=== PATIENT | male | born 1950 | race Caucasian/White ===

== ENCOUNTER 2017-03-23 14:13 | Inpatient (IN) | payer MEDICARE, MEDICAID ==
[2017-03-23] MEDS ORDERED: Levofloxacin 500mg/100mL 500 MG/100 ML BAG IV ONE (14:59)
[2017-03-23] MEDS ORDERED: Diltiazem 30 mg Tab PO STA (15:03)
[2017-03-23] MEDS ORDERED: Sodium Chloride 0.9% 2,000 ML IV ONE (15:05)
[2017-03-23] MEDS ORDERED: Sodium Chloride 0.9% 1,000 ML IV ONE (15:05)
[2017-03-23] MEDS ORDERED: Enoxaparin 60 mg/0.6 mL 0.6mL Syr SUBQ STA (15:06)
[2017-03-23 15:28] LABS: % BASOPHILS 0.2 % (0.0-2.0); % EOSINOPHILS 1.9 % (0.0-5.0); % LYMPHOCYTES 13.4 % (20.0-50.0); % MONOCYTES 5.6 % (2.0-10.0); % NEUTROPHILS 78.9 % (40.0-80.0); EOSINOPHILE ABSOLUTE 0.3 Th/cmm (0.1-0.4); HEMOGLOBIN 10.3 gm/dL (12-16); LYMPHOCYTE ABSOLUTE 2.3 Th/cmm (1.5-3.0); MEAN CORPUSCULAR HEMOGLOBIN 30.8 pg (27.0-31.0); MEAN CORPUSCULAR HGB CONC 32.1 pg (28.0-36.0); MEAN PLATELET VOLUME 9.3 fl; NEUTROPHILE ABSOLUTE 13.6 Th/cmm (1.8-8.0); RED BLOOD COUNT 3.33 Mil/cmm (3.80-5.80); RED CELL DISTRIBUTION WIDTH 17.1 % (11.5-20.0)
[2017-03-23 15:30] LABS: pH 7.44 (7.35-7.45)
[2017-03-23 15:31] LABS: ALLEN TEST YES
[2017-03-23 15:32] LABS: PLATELET COUNT 378 Th/cmm (150-400); WHITE BLOOD COUNT 17.2 Th/cmm (4.8-10.8)
[2017-03-23] MEDS ORDERED: Piperacillin Sodium/Tazobact 2.25 gm Vial IV ONE (15:45)
[2017-03-23] MEDS ORDERED: Piperacillin Sodium/Tazobact 3.375 gm Vial IV ONE (15:46)
[2017-03-23 15:53] LABS: ALB/GLOB RATIO 0.7 (1.0-1.8); ALBUMIN 3.7 gm/dL (4.2-5.5); ANION GAP 19.3 (7.0-16.0); BILIRUBIN,TOTAL 0.3 mg/dL (0.3-1.0); CALCIUM SERUM 9.8 mg/dL (8.6-10.3); CARBON DIOXIDE 19.5 mEq/L (21.0-31.0); GFR NON AFRICAN-AMERICAN 18.2 ml/min; POTASSIUM SERUM 5.8 mEq/L (3.5-5.1); TOTAL PROTEIN,SERUM 8.7 gm/dL (6.0-8.3)
[2017-03-23 16:05] LABS: CREATININE - SERUM 3.6 mg/dL (0.7-1.3)
--- NOTE | 2017-03-23 17:18 | ER Physician Documentation ---
DATE OF SERVICE: 03/23/2017 EMERGENCY ROOM EVALUATION AND TREATMENT HOSPITAL COURSE: The patient was sent from [facility], placed by Dr. Miller to this institution for treatment and diagnosis, etc. The patient's preliminary workup done over there showed BUN of 186, creatinine of 3.8, that means he has mild prerenal azotemia. He has his white count is found to be 16.3. He was given 30 mEq of Kayexalate and was sent over here. His temperature was 101.2. He was found to be septic and hence he was sent over here. We are waiting for the labs to come back. The triage nurse saw the patient, did vital signs showing temperature 101.2, pulse of 110, respirations 18, blood pressure 129/64, oxygen saturation 100%. The patient was sent from [facility] to this institution. On 03/23/2017, I saw the patient and Maral Larsen was notified, she was his spouse. Abnormal lab was detected, hence he was sent here to [facility] [place]. The patient is not in a condition to speak. He is trached. He is almost semi-comatose patient. He is not on any vent. He has a Shiley valve. We are getting a blood gas to be done on him. He has few rales and rhonchi which are audible over at other institution in the [facility], hence the patient was sent over here. The patient's blood sugar was 234 at the [facility]. Review of present illness and past history cannot be obtained. FAMILY HISTORY: Cannot be obtained. Whatever I will get, I will dictate it out. The patient has been diagnosed to have chronic respiratory failure, diabetes mellitus, total chronic kidney failure. The patient also carries a diagnosis of CHF and patient is getting Pulmocare 65 mL an hour for 20 hours. The last vital signs from the other place was, temperature of 98.4, pulse of 100, respirations 22, blood pressure 106/78, oxygen saturation of 96. Pain level is 0. He may be having pain, but one cannot assess his pain in view of his serious situation. The patient's level of resuscitation is level 4 brain and level 4 brain code has been put on this patient. When Dr. Miller will come, he will decide further as to what to be done with this kind of code status. He is a brain patient, code was told. On examination, the patient appears to be deeply unconscious, not moving. He is contractual status. The patient has a G-tube. The patient's Montoya catheter has infection, septic and cloudy and pus-like findings are seen. The patient has no edema over the legs. Peripheral pulses are very faint. No DVT, no cyanosis, no petechia, no ecchymosis. The patient's past history taken from [facility] on 01/27/2017. There was a history which was done by one of the physicians showed that he has a history of hypertension, history of chronic respiratory failure with tracheostomy. He has coronary artery disease, hypercholesterolemia, status post trach and PEG and he was initially admitted to this hospital secondary to fever and diagnosis of pneumonia and urinary tract infection. His medications that he was taking in the past was Tylenol, Maalox, amiodarone, vitamin C, iron, Proscar, Keppra, Synthroid, Zofran, insulin sliding scale, Zosyn, amikacin, and . He did have an endoscopic procedure done in the past. He did have multiple decubitus ulcers, stage 2 to 3 in the past. He did have urinary tract infection in the past, pneumonia in the past, coronary artery disease and status post tracheostomy done in the past. He has cardiac arrhythmias, atrial flutter and atrial fibrillation done in the past. At one point, he was treated on 01/18/2017 at [facility] [place] and his white count was 9.3. At that time, the patient was on ventilator and got support and care. He had seizure disorder, hypothyroidism, benign prostatic hypertrophy, dementia, etc. His medications also included Protonix, [place], Tylenol and Zofran. These are the diagnosis the patient was dictated also by Dr. Miller, I believe at [facility]. Instead of getting all the other diagnosis, I will give it to you in the final section. On physical exam, the lungs revealed that the patient has tracheostomy, getting oxygen saturation is 97% or so. The patient has atrial flutter fibrillation, rhythm mostly flutter. At some point, I saw even having fibrillation rhythm. On physical exam also showed that patient has no edema, no cyanosis. Does not respond to any kind of painful stimuli. Chest reveals the patient has few bilateral rales and rhonchi. Trachea to be emphysematous. Chest wall is found and few scattered rales and rhonchi. Could not appreciate any bronchial breathing. Central nerve system; deep comatose status and the patient is getting medications over there; amiodarone, Catapres, chlorhexidine, DuoNeb inhaler, Fleet enema Imodium, Keppra 500 mg twice a day for seizures, milk of magnesia, etc. The patient's BUN in the past at one point in time was 187, that was on 03/23/2017 that is today and potassium was 6. We will give the patient some Kayexalate 60 grams through the G-tube and give him some IV fluids. White count is 16.3, hemoglobin is 10, hematocrit is 31, so the chances of patient having needing blood is very high. Examination of the chest x-ray showed that heart size was normal. No consolidation or pneumonitis was seen. WBC was 7.6, hematocrit was 22.8 that was done on 03/09/2017. Todays labs are not back. Once we have it, will dictate it out. His BUN in the past on 03/09/2017 was 84, today is 187 should be noted. FINAL DIAGNOSES: Chronic respiratory failure. The patient has tracheostomy and he is permanently dependent on trach and oxygenation and breathing treatment and from time to time he gets infection. He had MRSA infection in the past. He had Klebsiella pneumoniae infections in the past. OTHER DIAGNOSES: Include: 1. Urinary tract infection with yeast and pseudomonas for which he got antibiotics. 2. Sepsis. 3. Prerenal azotemia. 4. Hyperkalemia. 5. Acute renal failure. 6. Gangrene of the left toe tip second toe. 7. Hypertension. 8. Atrial fibrillation. 9. Diabetes mellitus. 10. Hypothyroidism. 11. Dementia. 12. Seizure disorder. 13. Quadriplegia. 14. Benign prostatic hypertrophy. 15. Status post leukocytosis, kidney injury, metabolic acidosis. PLAN: He does not need any amiodarone at this juncture. He needs IV fluids. He needs iron in his blood transfusion. Zofran and insulin and antibiotics, etc. all that has been ordered. JOB# [id number]
[2017-03-23] MEDS ORDERED: Enoxaparin 60 mg/0.6 mL 0.6mL Syr SUBQ ONE (19:18)
--- NOTE | 2017-03-23 19:44 | ED Physician Chart ---
ED Chief Complaint/HPI - Patient Information Allergies:: Allergies Allergy/AdvReac Type Severity Reaction Status Date / Time No Known Allergies Allergy Verified 01/19/17 21:36 Vitals:: Vital Signs - 8 hr 03/23/17 03/23/17 16:33 18:19 Temp 101.2 F 98.0 F HR 110 98 RR 18 22 BP 129/64 98/57 O2 Sat % 100 Family Medical History - Family Member Mother History Unknown: Yes ED Labs/Radiology/EKG Results - Lab Results Results: Laboratory Tests 03/23/17 03/23/17 03/23/17 15:02 15:18 15:18 WBC 17.2 H D RBC 3.33 L Hgb 10.3 L Hct 32.0 L D MCV 96.0 MCH 30.8 MCHC Differential 32.1 RDW 17.1 Plt Count 378 D MPV 9.3 Neutrophils % 78.9 Lymphocytes % 13.4 L Monocytes % 5.6 Eosinophils % 1.9 Basophils % 0.2 Specimen Source Arterial Sample Site Right Radial pH 7.44 pCO2 39.0 pO2 164.0 H HCO3 26.7 H Base Excess 2.2 O2 Saturation 100.0 Tyrel Test YES Vent Rate NA Inspired O2 32 Tidal Volume NA PEEP NA Pressure (ins/psv/peep) NA Critical Value SH Sodium 139 Potassium 5.8 H Chloride 106 Carbon Dioxide 19.5 L Anion Gap 19.3 H BUN Creatinine 3.6 H Est GFR ( Amer) 22.0 Est GFR (Non-Af Amer) 18.2 BUN/Creatinine Ratio 53.3 Glucose 146 H Whole Bld Lactic Acid Calcium 9.8 Magnesium Total Bilirubin 0.3 AST 63 H ALT 98 H Alkaline Phosphatase 88 B-Natriuretic Peptide Total Protein 8.7 H Albumin 3.7 L Globulin 5.0 Albumin/Globulin Ratio 0.7 L Blood Type Antibody Screen Crossmatch 03/23/17 03/23/17 03/23/17 15:18 15:18 15:18 WBC RBC Hgb Hct MCV MCH MCHC Differential RDW Plt Count MPV Neutrophils % Lymphocytes % Monocytes % Eosinophils % Basophils % Specimen Source Sample Site pH pCO2 pO2 HCO3 Base Excess O2 Saturation Tyrel Test Vent Rate Inspired O2 Tidal Volume PEEP Pressure (ins/psv/peep) Critical Value Sodium Potassium Chloride Carbon Dioxide Anion Gap BUN Creatinine Est GFR ( Amer) Est GFR (Non-Af Amer) BUN/Creatinine Ratio Glucose Whole Bld Lactic Acid 1.30 Calcium Magnesium 3.2 H Total Bilirubin AST ALT Alkaline Phosphatase B-Natriuretic Peptide 909.0 H Total Protein Albumin Globulin Albumin/Globulin Ratio Blood Type Antibody Screen Crossmatch 03/23/17 15:18 WBC RBC Hgb Hct MCV MCH MCHC Differential RDW Plt Count MPV Neutrophils % Lymphocytes % Monocytes % Eosinophils % Basophils % Specimen Source Sample Site pH pCO2 pO2 HCO3 Base Excess O2 Saturation Tyrel Test Vent Rate Inspired O2 Tidal Volume PEEP Pressure (ins/psv/peep) Critical Value Sodium Potassium Chloride Carbon Dioxide Anion Gap BUN Creatinine Est GFR ( Amer) Est GFR (Non-Af Amer) BUN/Creatinine Ratio Glucose Whole Bld Lactic Acid Calcium Magnesium Total Bilirubin AST ALT Alkaline Phosphatase B-Natriuretic Peptide Total Protein Albumin Globulin Albumin/Globulin Ratio Blood Type A POSITIVE Antibody Screen NEGATIVE Crossmatch See Detail ED Assessment - Assessment General Assessment: See chart by Dr. Gomez ED Septic Shock - . Is Septic Shock (SBP<90, OR Lactate>4 mmol\L) present?: No - <6hrs of presentation: Vital Signs: Vital Signs - 8 hr 03/23/17 03/23/17 16:33 18:19 Temp 101.2 F 98.0 F HR 110 98 RR 18 22 BP 129/64 98/57 O2 Sat % 100 ED Discharge Plan - Patient Disposition Admit/Discharge/Transfer: Acute Care w/in this hosp Condition at Disposition: Stable
[2017-03-23] MEDS ORDERED: Fleet Enema 135 mL RC PRN (22:47)
[2017-03-23] MEDS ORDERED: Magnesium Hydroxide (MOM) 30 mL UDC GT PRN (22:47)
[2017-03-23] MEDS ORDERED: guaiFENesin 200 MG/10 ML UDC PO PRN (22:56)
[2017-03-23] MEDS ORDERED: D5-0.45NS 1,000 ML IV SCH (23:00)
[2017-03-24] MEDS ORDERED: Albuterol/Ipratropium Neb 3 ML AERS HHN SCH
[2017-03-24 01:54] VITALS: BP 96/58
[2017-03-24 04:21] LABS: % BASOPHILS 0.2 % (0.0-2.0); % EOSINOPHILS 1.8 % (0.0-5.0); % MONOCYTES 3.6 % (2.0-10.0); % NEUTROPHILS 81.4 % (40.0-80.0); EOSINOPHILE ABSOLUTE 0.3 Th/cmm (0.1-0.4); HEMATOCRIT 32.9 % (41.0-60); HEMOGLOBIN 10.5 gm/dL (12-16); LYMPHOCYTE ABSOLUTE 1.8 Th/cmm (1.5-3.0); MEAN CORPUSCULAR HEMOGLOBIN 30.6 pg (27.0-31.0); MEAN CORPUSCULAR HGB CONC 31.9 pg (28.0-36.0); MEAN PLATELET VOLUME 9.6 fl; MONOCYTE ABSOLUTE 0.5 Th/cmm (0.3-1.0); NEUTROPHILE ABSOLUTE 11.4 Th/cmm (1.8-8.0); PLATELET COUNT 311 Th/cmm (150-400); RED BLOOD COUNT 3.43 Mil/cmm (3.80-5.80); RED CELL DISTRIBUTION WIDTH 17.2 % (11.5-20.0)
[2017-03-24] MEDS ORDERED: Piperacillin Sodium/Tazobact 2.25 gm Vial IV ONE (04:24)
[2017-03-24 04:39] LABS: ALB/GLOB RATIO 0.7 (1.0-1.8); ALBUMIN 3.6 gm/dL (4.2-5.5); ANION GAP 16.3 (7.0-16.0); BILIRUBIN,TOTAL 0.4 mg/dL (0.3-1.0); CALCIUM SERUM 9.3 mg/dL (8.6-10.3); CARBON DIOXIDE 20.3 mEq/L (21.0-31.0); CREATININE - SERUM 3.4 mg/dL (0.7-1.3); GFR AFRICAN-AMERICAN 23.5 ml/min (>90); GFR NON AFRICAN-AMERICAN 19.4 ml/min; POTASSIUM SERUM 4.6 mEq/L (3.5-5.1); TOTAL PROTEIN,SERUM 8.7 gm/dL (6.0-8.3)
[2017-03-24] MEDS: Piperacillin Sodium/Tazobact 2.25 GM in Sodium Chloride 0.9% 100 ML IV SCH ×3 (04:43→20:25)
[2017-03-24] MEDS ORDERED: INSULIN ASPART, RECOMBINANT 100 UNITS/ML SUBQ SCH (07:30)
[2017-03-24] MEDS: Albuterol Nebulizer 2.5mg/3mL HHN SCH ×4 (07:51→19:22)
[2017-03-24] MEDS: Ipratropium Neb 0.5 mg/2.5 mL UD IH SCH ×4 (07:51→19:22)
[2017-03-24] MEDS: Levothyroxine 0.05 Mg Tab GT SCH (07:57)
--- NOTE | 2017-03-24 08:37 | Diagnostic Imaging Report ---
Exam: Portable chest x-ray. HISTORY: Pneumonia Findings: Portable examination of the chest at 1521 hours reviewed compatible prior study 01/24/2017 demonstrates tracheostomy tube midline. Mediastinal structures midline the heart is not enlarged. No acute pulmonic infiltrates or effusions are noted. Bony thorax intact. IMPRESSION: No definite acute focal pulmonary infiltrates.
--- NOTE | 2017-03-24 08:45 | Diagnostic Imaging Report ---
Exam: Chest portable x-ray HISTORY: Sepsis. I needs: Portable examination of the chest at 0801 hours reviewed and compared to prior study of the earlier. The study demonstrates unchanged position of tracheostomy tube. Mediastinal structures midline the heart is not enlarged the costophrenic angles are clear. Bony thorax is intact. Right basilar atelectasis is noted with pleural thickening. IMPRESSION: Right basilar atelectasis pleural thickening follow-up examination is recommended.
[2017-03-24] MEDS ORDERED: Non-Formulary Item 1 EA (Arginine/Glutamine/Calcium Hmb [Juven Packet] 1 PDS) GT SCH (09:00)
[2017-03-24] MEDS ORDERED: Multivitamin w/ Minerals 15 mL UDC GT SCH (09:00)
[2017-03-24] MEDS ORDERED: Non-Formulary Item 1 EA (Amino Acids/Protein Hydrolys [Pro-Stat Sugar Free Liquid] 30 ML) GT SCH (09:00)
[2017-03-24] MEDS: Multivitamin w/ Minerals Tab GT SCH (09:26)
[2017-03-24] MEDS: Pantoprazole 40 mg EC Tab PO SCH ×2 (09:27→17:49)
[2017-03-24] MEDS: Levetiracetam 500 mg/5mL 5mL UDSyr *for ORAL USE ONLY GT SCH ×2 (09:27→17:48)
--- NOTE | 2017-03-24 10:00 | Diagnostic Imaging Report ---
Renal ultrasound HISTORY: Elevated renal function tests. COMPARISON: None Technique: Sonography of the kidneys and urinary bladder was performed in multiple planes. FINDINGS: Exam is limited due to bowel gas. The right kidney measures 12.6 x 6.67 days. A superior pole right renal cyst is noted measuring 3.6 x 3.6 cm with possible adjacent calcification. Adjacent smaller right renal cyst is also noted. No hydronephrosis. The left kidney measures 12.1 x 6.6 cm. The left renal margin is not well-defined, however no evidence of focal lesions. The bladder was not visualized. IMPRESSION: Limited exam due to bowel gas. No evidence of hydronephrosis. Right renal cyst with possible calcification along the peripheral aspect of the larger right renal cyst. Recommend follow-up surveillance CT or ultrasound in 4-6 months.
[2017-03-24] MEDS ORDERED: Probiotic Screen MC PRN (10:30)
[2017-03-24] MEDS: INSULIN ASPART, RECOMBINANT 100 UNITS/ML SUBQ SCH ×2 (11:33→17:24)
[2017-03-24] MEDS: D5-0.45NS 1,000 ML IV SCH ×2 (11:38→20:25)
--- NOTE | 2017-03-24 12:48 | Internal Medicine Prog Note ---
Internal Medicine Subjective - Subjective Service Date: 03/24/17 ([facility] dictated [id number]) Internal Medicine Objective - Results Result Diagrams: 03/24/17 04:00 03/24/17 04:00 Recent Labs: Laboratory Last Values WBC 14.0 Th/cmm (4.8-10.8) H 03/24/17 04:00 RBC 3.43 Mil/cmm (3.80-5.80) L 03/24/17 04:00 Hgb 10.5 gm/dL (12-16) L 03/24/17 04:00 Hct 32.9 % (41.0-60) L 03/24/17 04:00 MCV 96.0 fl (80-99) 03/24/17 04:00 MCH 30.6 pg (27.0-31.0) 03/24/17 04:00 MCHC Differential 31.9 pg (28.0-36.0) 03/24/17 04:00 RDW 17.2 % (11.5-20.0) 03/24/17 04:00 Plt Count 311 Th/cmm (150-400) 03/24/17 04:00 MPV 9.6 fl 03/24/17 04:00 Neutrophils % 81.4 % (40.0-80.0) H 03/24/17 04:00 Lymphocytes % 13.0 % (20.0-50.0) L 03/24/17 04:00 Monocytes % 3.6 % (2.0-10.0) 03/24/17 04:00 Eosinophils % 1.8 % (0.0-5.0) 03/24/17 04:00 Basophils % 0.2 % (0.0-2.0) 03/24/17 04:00 Specimen Source Arterial 03/23/17 15:02 Sample Site Right Radial 03/23/17 15:02 pH 7.44 (7.35-7.45) 03/23/17 15:02 pCO2 39.0 mmHg (35.0-45.0) 03/23/17 15:02 pO2 164.0 mmHg (80.0-100.0) H 03/23/17 15:02 HCO3 26.7 mEq/L (20.0-26.0) H 03/23/17 15:02 Base Excess 2.2 mEq/L (-3.0-3.0) 03/23/17 15:02 O2 Saturation 100.0 % (92.0-100.0) 03/23/17 15:02 Tyrel Test YES 03/23/17 15:02 Vent Rate NA 03/23/17 15:02 Inspired O2 32 03/23/17 15:02 Tidal Volume NA 03/23/17 15:02 PEEP NA 03/23/17 15:02 Pressure (ins/psv/peep) NA 03/23/17 15:02 Critical Value SH 03/23/17 15:02 Sodium 141 mEq/L (136-145) 03/24/17 04:00 Potassium 4.6 mEq/L (3.5-5.1) 03/24/17 04:00 Chloride 109 mEq/L (98-107) H 03/24/17 04:00 Carbon Dioxide 20.3 mEq/L (21.0-31.0) L 03/24/17 04:00 Anion Gap 16.3 (7.0-16.0) H 03/24/17 04:00 BUN 186 mg/dL (7-25) H* 03/24/17 04:00 Creatinine 3.4 mg/dL (0.7-1.3) H 03/24/17 04:00 Est GFR ( Amer) 23.5 ml/min (>90) 03/24/17 04:00 Est GFR (Non-Af Amer) 19.4 ml/min 03/24/17 04:00 BUN/Creatinine Ratio 54.7 03/24/17 04:00 Glucose 140 mg/dL (70-105) H 03/24/17 04:00 POC Glucose 180 MG/DL (70 - 105) H 03/24/17 11:29 Whole Bld Lactic Acid 1.57 mmol/L (0.60-1.99) 03/24/17 04:00 Calcium 9.3 mg/dL (8.6-10.3) 03/24/17 04:00 Magnesium 3.2 mg/dL (1.9-2.7) H 03/23/17 15:18 Total Bilirubin 0.4 mg/dL (0.3-1.0) 03/24/17 04:00 AST 61 U/L (13-39) H 03/24/17 04:00 ALT 107 U/L (7-52) H 03/24/17 04:00 Alkaline Phosphatase 84 U/L (34-104) 03/24/17 04:00 Ammonia 69 umol/L (16-53) H 03/24/17 04:00 B-Natriuretic Peptide 909.0 pg/mL (5.0-100.0) H 03/23/17 15:18 Total Protein 8.7 gm/dL (6.0-8.3) H 03/24/17 04:00 Albumin 3.6 gm/dL (4.2-5.5) L 03/24/17 04:00 Globulin 5.1 gm/dL 03/24/17 04:00 Albumin/Globulin Ratio 0.7 (1.0-1.8) L 03/24/17 04:00 Blood Type A POSITIVE 03/23/17 15:18 Antibody Screen NEGATIVE 03/23/17 15:18 Crossmatch See Detail 03/23/17 15:18 - Physical Exam Vitals and I&O: Vital Signs Temp 96.6 F 03/24/17 10:00 Pulse 88 03/24/17 12:12 Resp 18 03/24/17 12:12 BP 107/61 03/24/17 11:00 Pulse Ox 100 03/24/17 12:12 Intake & Output 03/23/17 03/24/17 03/24/17 18:59 06:59 18:59 Intake Total 200 Output Total 750 Balance -550 Weight (lbs) 171 lb 8 oz Intake: Oral 0 Tube Feeding 200 Output: Urine 750 Stool 0 Other: Stool Characteristics Liquid Active Medications: Current Medications Acetaminophen (Tylenol Extra Strength) 500 mg GT Q8HR PRN PRN Reason: Pain (Moderate) Stop: 05/22/17 22:46 Albuterol Sulfate (Albuterol 2.5mg/3ml Neb Ud) 2.5 mg HHN QIDRT [facility] Stop: 05/23/17 06:59 Last Admin: 03/24/17 12:11 Dose: 2.5 mg Ascorbic Acid (Vitamin C) 500 mg GT DAILY [facility] Stop: 05/23/17 08:59 Last Admin: 03/24/17 09:27 Dose: 500 mg Bisacodyl (Dulcolax 10 Mg Supp) 10 mg RC DAILY PRN PRN Reason: Constipation Stop: 05/22/17 22:46 Chlorhexidine Gluconate (Peridex) 15 ml MM Q12H [facility] Stop: 05/22/17 22:59 Epoetin Wei (Epogen) 10,000 units SUBQ MoWeFr@1500 [facility] Stop: 05/24/17 14:59 Guaifenesin (Robitussin) 200 mg PO Q4HR PRN PRN Reason: Cough or Congestion Stop: 05/22/17 22:55 Piperacillin Sod/Tazobactam (Sod 2.25 gm/ Sodium Chloride) 100 mls @ 100 mls/ hr IV Q8HR ALEJANDRO Stop: 05/23/17 04:59 Last Admin: 03/24/17 04:43 Dose: 100 mls/hr Dextrose/Sodium Chloride (D5-0.45ns) 1,000 mls @ 125 mls/hr IV .Q8H [facility] Stop: 05/23/17 08:38 Last Admin: 03/24/17 11:38 Dose: 125 mls/hr Insulin Aspart (Novolog) 0 units SUBQ Q6HR ALEJANDRO PRN Reason: Protocol Stop: 05/23/17 11:59 Last Admin: 03/24/17 11:33 Dose: Not Given Ipratropium Wayne (Atrovent Neb 0.5mg/2.5ml) 0.5 mg IH QIDRT [facility] Stop: 05/23/17 06:59 Last Admin: 03/24/17 07:51 Dose: 0.5 mg Lactobacillus Rhamnosus (Culturelle 15b) 1 each GT DAILY [facility] Stop: 05/24/17 08:59 Levetiracetam (Keppra) 500 mg GT BID [facility]AN[facility] Stop: 05/23/17 08:59 Last Admin: 03/24/17 09:27 Dose: 500 mg Levothyroxine Sodium (Synthroid) 0.05 mg GT QDAC [facility] Stop: 05/23/17 07:29 Last Admin: 03/24/17 07:57 Dose: 0.05 mg Loperamide HCl (Imodium) 2 mg GT Q6H PRN PRN Reason: Diarrhea Lorazepam (Ativan) 1 mg IV Q4H PRN; Protocol PRN Reason: Seizure Stop: 05/22/17 22:55 Magnesium Hydroxide (Milk Of Magnesia) 30 ml GT HS PRN PRN Reason: Constipation Stop: 05/22/17 22:46 Metoclopramide HCl (Reglan) 5 mg GT Q6H [facility]LE[facility]ANDRO Stop: 05/22/17 22:59 Last Admin: 03/24/17 11:36 Dose: 5 mg Miscellaneous (Vancomycin Iv Per Pharmacy) 1 ea PRN ALEJANDRO Stop: 05/22/17 22:59 Miscellaneous (Probiotic Screen) 1 [facility] PRN PRN PRN Reason: PROTOCOL Stop: 05/23/17 10:29 Ondansetron HCl (Zofran) 4 mg IV Q4H PRN PRN Reason: Nausea / Vomiting Stop: 05/22/17 22:55 Pantoprazole Sodium (Protonix) 40 mg PO BID [facility]ANDR[facility] Stop: 05/23/17 08:59 Last Admin: 03/24/17 09:27 Dose: 40 mg Sodium Bicarbonate (Sodium Bicarbonate) 650 mg GT DAILY [facility] PRN Reason: Protocol Stop: 05/23/17 08:59 Last Admin: 03/24/17 09:27 Dose: 650 mg Sodium Phosphate (Fleet Enema) 135 ml RC Q48HR PRN PRN Reason: Constipation Stop: 05/22/17 22:46 - Procedures Procedures: Procedures Procedure Code Date TRANSFUSE NONAUT RED BLOOD CELLS IN PERIPH VEIN, PERC 37163N4 01/20/17
[2017-03-24 14:15] LABS: A1C % 4.6 % (4.0-6.0)
[2017-03-24 16:04] LABS: URINE MICROSCOPIC INDICATED? YES; URINE SOURCE RANDOM
[2017-03-24 16:08] LABS: URINE BILIRUBIN NEGATIVE (NEGATIVE); URINE BLOOD TRACE (NEGATIVE); URINE GLUCOSE (UA) NEGATIVE (NEGATIVE); URINE KETONE NEGATIVE (NEGATIVE); URINE LEUKOCYTE ESTERASE MODERATE (NEGATIVE); URINE NITRATE NEGATIVE (NEGATIVE); URINE PROTEIN 30 mg/dL (NEGATIVE); URINE UROBILINOGEN 0.2 E.U./dL (0.2 - 1.0)
[2017-03-24 16:15] LABS: URINE CLARITY HAZY (CLEAR); URINE COLOR YELLOW
[2017-03-24 16:28] LABS: EOSINOPHIL SMEAR SOURCE URINE; EOSINOPHILS SMEAR COUNT NONE SEEN (NONE SEEN)
[2017-03-24 16:31] LABS: URINE EPITHELIAL CELLS NONE SEEN /lpf (FEW); URINE WBC 25-50 /hpf (0-5)
[2017-03-24 16:32] LABS: URINE BACTERIA FEW /hpf (NONE SEEN)
[2017-03-24] MEDS ORDERED: VTE Chemical Prophylaxis Screen/Admission MC PRN (17:15)
[2017-03-24] MEDS: Venelex 60gm Tube TP SCH (17:49)
--- NOTE | 2017-03-24 18:17 | Consultation ---
DATE OF CONSULTATION: 03/24/2017 ATTENDING: Ozzy Miller D.O. REASON FOR CONSULTATION: For worsening kidney function, electrolyte imbalance, and fluid management. HISTORY OF PRESENT ILLNESS: This is a 66-year-old male with past medical history of chronic kidney disease, who was brought in because of abnormal labs. A few hours prior to admission, labs drawn at [facility] revealed potassium of 6, BUN 187, and a white count of 16.3. He was then brought to the Emergency Room. He received one dose of Kayexalate prior to being transferred to the Emergency Room. He had a temperature of 101.2 degrees, white count was 17.2. Chest x-ray revealed no acute disease. Lactic acid was 1.3. He was admitted with a BUN/creatinine of 187/3.6. There was no history of diarrhea, no nausea or vomiting. PAST MEDICAL HISTORY: 1. Chronic kidney disease. 2. Type 2 diabetes mellitus. 3. BPH. 4. Essential hypertension. 5. Epilepsy. 6. Chronic respiratory failure on T-piece. 7. Anemia of chronic disease. 8. Dysphagia. 9. Functional quadriplegia. 10. Hypothyroidism. PAST SURGICAL HISTORY: 1. Status post tracheostomy. 2. Status post PEG placement. CURRENT MEDICATIONS: He is currently on acetaminophen, albuterol, ascorbic acid, bisacodyl, chlorhexidine, clonidine, D5 half NS, Epogen on Thursday, Thursday, and Thursday; guaifenesin, ipratropium, lactobacillus, levetiracetam, levofloxacin, levothyroxine, loperamide, magnesium hydroxide, metoclopramide, ondansetron, pantoprazole, probiotic, sodium bicarbonate, Zosyn. ALLERGIES: No known drug allergies. SOCIAL AND FAMILY HISTORY: I was not able to obtain directly from the patient because he is on a T-piece. REVIEW OF SYSTEMS: Again, I was not able to decipher directly from the patient because of his current mental and medical status. PHYSICAL EXAMINATION: GENERAL: The patient is arousable, not in any distress. VITAL SIGNS: His blood pressure now is 107/61, pulse 88, temperature 96.6 degrees. SKIN: Poor turgor, warm, no rash, no jaundice appreciated. HEENT: Head normocephalic, atraumatic. Eyes: Extraocular muscles intact. Pupils equal, round, reactive to light and accommodates. Anicteric sclerae. Pale conjunctivae. Nose, midline nasal septum. Mouth: Dry mucosa, adequate dentition. NECK: Supple. No adenopathy, no bruits. Trachea palpated in the midline with a tracheostomy tube on T-piece. CHEST AND CVS: S1, S2. No rub, murmur, no gallop appreciated. Point of maximal impulse, fifth intercostal space, left midclavicular line. No abdominal or femoral bruits appreciated. LUNGS: Equal expansion. No use of accessory muscles. No supraclavicular retractions. Scattered rhonchi, but no rales, no wheezes appreciated. ABDOMEN: Mildly globular, soft. Positive for bowel sounds. No bruits either diastolic or systolic. RECTAL: Deferred. GENITOURINARY: Normal appearing male genitalia. MUSCULOSKELETAL: No effusions present in his joints, but unable to assess his range of motion. BACK: He has I would say 3 x 5 inch sacral decubitus ulcer. EXTREMITIES: No evidence of any edema, cyanosis, nor clubbing with palpable femoral, but unable to fully appreciate popliteal or dorsalis pedis pulses. He has bilateral heel ulcers, right heel worse than his left heel. NEUROLOGIC: The patient remains stuporous, unable to follow my neuro commands, so I was not able to pursue further by neuro exam. LABORATORY DATA: White count 14, hemoglobin 10.5, hematocrit 32.9, platelets 311, polys 81.3%. Sodium is 141, potassium 4.6, chloride 109, bicarbonate 20.3, BUN 186, creatinine 3.4, glucose 140. Calcium 9.3, magnesium 3.2. Ammonia 69. BNP is 909. Albumin is 3.6. Renal ultrasound revealed ultrasound limited exam due to bowel gas, no evidence of hydronephrosis, right renal cyst. IMPRESSION: 1. Acute kidney injury on chronic kidney disease. Chronic kidney disease is secondary to hypertensive nephrosclerosis due to longstanding history of hypertension and also mainly from diabetic nephropathy with history of hypertension for years. Acute kidney injury is initially prerenal, even though the patient is on G-tube feedings, this may not be enough to replenish both sensible and insensible fluid losses. Eventually physical exam revealed dry oral mucosa, poor skin turgor, these findings are suggestive of dehydration. Eventually his prerenal azotemia progressed to acute tubular injury. The patient also has history of severe sepsis when he came in. Possibility of recurring urinary tract infection can give rise to acute interstitial nephritis. 2. Hyperkalemia secondary to acute kidney injury. 3. Sepsis, severe. 4. Sepsis, possibly due to complicated urinary tract infection as well as underlying wound infection. 5. Sacral decubitus ulcer. 6. Bilateral heel ulcers, right greater than left. 7. Elevated BNP, likely due to kidney failure. 8. Type 2 diabetes mellitus with chronic kidney disease. 9. Essential hypertension with chronic kidney disease. 10. Benign prostatic hypertrophy. 11. Epilepsy. 12. Chronic respiratory failure on T-piece. 13. Anemia of chronic disease. 14. Functional quadriplegia. 15. Hypothyroidism. PLAN: 1. Follow up renal ultrasound. 2. UA, C and S. 3. Urine sodium, eosinophils, and creatinine. 4. Urine microalbumin to creatinine ratio. 5. Continue with IV fluids. 6. Follow up electrolytes. 7. Also, follow up panculture including wound culture. Thank you, Dr. Miller, for this consult. I will follow the patient closely with you. JOB# [id number]
--- NOTE | 2017-03-24 21:15 | History & Physical ---
ADMIT DATE: 03/24/2017 CHIEF COMPLAINT: BUN of 187, potassium of 6. HISTORY OF PRESENT ILLNESS: This is a 66-year-old male who is well known to me from [facility] who was brought to [facility] due to elevated BUN of 187. The patient also was noted to have a white count of 16.3. Due to the above reasons, the patient is now admitted to the ICU unit. PAST MEDICAL HISTORY: Hypertension, diabetes, ESRD, seizures, dementia, and BPH. PAST SURGICAL HISTORY: Trach and gastrostomy. ALLERGIES: No drug allergies. MEDICATIONS: Albuterol, Atrovent, amiodarone, vitamin C, Dulcolax, chlorhexidine, ferrous sulfate, Proscar, hydrocodone. FAMILY HISTORY: Noncontributory. SOCIAL HISTORY: The patient is a [facility] resident, requiring 24-hour nursing care. ALLERGIES: No drug allergies. REVIEW OF SYSTEMS: Unable to obtain due to patient's mental status. PHYSICAL EXAMINATION: GENERAL: This is an elderly male, appears chronically ill, no apparent distress. VITAL SIGNS: Temperature 96.6, heart rate 86, blood pressure 98/62, respirations 20, O2 100%. HEENT: Head; normocephalic, atraumatic. NECK: Supple. No mass. LUNGS: Rhonchi bilaterally. HEART: Regular rhythm. ABDOMEN: Soft, nontender. LABORATORY DATA: WBC 14.0, H and H 10.5 and 32.9, platelets 311. Sodium 141, potassium 4.6, chloride of 109, BUN 186, creatinine of 3.4, albumin at 3.6. BNP 909. DIAGNOSTICS: The patient had a renal ultrasound done and the impression is renal cyst with possible calcification along the peripheral aspect of the larger right renal cyst. The patient also had a chest x-ray done and the impression is right basal atelectasis, pleural thickening. Followup examination is recommended. ASSESSMENT: Sepsis, acute renal failure, mild protein calorie malnutrition, hyperkalemia, hypertension, CAD, dyslipidemia, acute on chronic respiratory failure, tracheostomy status, gastrostomy status. PLAN: The patient to be admitted to the ICU unit. We will get nephrology on the case as well as Pulmonology. We will get some sputum cultures done. Keep patient on aggressive IV fluids for hydration as well as IV antibiotics of Zosyn. We will continue to follow this patient. [facility]# [id number]
[2017-03-24] MEDS: Chlorhexidine Gluconate 0.12% 480mL Bottle MM SCH (22:37)
--- NOTE | 2017-03-24 22:38 | Consultation ---
DATE OF CONSULTATION: 03/24/2017 PATIENT OF: Ozzy Miller D.O. Thank you very much, Dr. Miller, for this consultation. HISTORY OF PRESENT ILLNESS: The patient is a 66-year-old male with history of chronic respiratory failure on a trach collar who was transferred from subacute care secondary to leukocytosis and potential sepsis. The patient was found to have severe dehydration, acute renal failure, hyperkalemia, and leukocytosis. The patient was started on IV fluids, nebulized treatment, IV antibiotics, admitted for treatment and management. The patient is not needing to be on any pressors. Appears to be comfortable, more awake. He was just readmitted to subacute care a week ago after had extended treatment in both acute care and long-term acute care. He is unable to give any further history or review of systems. PHYSICAL EXAMINATION: VITAL SIGNS: Temperature 96.8, pulse 80, respiration is 20, blood pressure 93/54, saturation 100%. HEENT: Head is atraumatic, normocephalic. Pupils react to light and accommodation. Ears, nose and throat normal. NECK: Supple. Tracheostomy tube in place. CHEST: Good breath sounds. No wheezing or crackles. HEART: Regular rate and rhythm. ABDOMEN: Soft, nontender. EXTREMITIES: No edema. LABORATORY DATA: Sodium is 141, potassium 4.6, BUN is 186, creatinine 3.4. WBC is 14.0, hemoglobin 10.5, hematocrit 32.9, platelets 311. Chest x-ray showed right lower lobe infiltrate and mild pulmonary congestion. IMPRESSION: 1. This is a 66-year-old male with sepsis again. 2. Acute renal failure with dehydration. 3. Pneumonia. 4. Acute on chronic respiratory failure. PLAN: 1. IV antibiotics. 2. Nebulizer treatment. 3. IV fluids. 4. Renal followup and evaluation and followup chest x-ray and labs. Will follow the patient with you. JOB# [id number]
[2017-03-25] MEDS: INSULIN ASPART, RECOMBINANT 100 UNITS/ML SUBQ SCH ×5 (00:23→23:43)
[2017-03-25] MEDS: Piperacillin Sodium/Tazobact 2.25 GM in Sodium Chloride 0.9% 100 ML IV SCH (04:36)
[2017-03-25] MEDS: D5-0.45NS 1,000 ML IV SCH ×4 (04:39→23:00)
[2017-03-25 04:51] LABS: % BASOPHILS 0.1 % (0.0-2.0); % EOSINOPHILS 3.9 % (0.0-5.0); % LYMPHOCYTES 12.8 % (20.0-50.0); % MONOCYTES 5.5 % (2.0-10.0); % NEUTROPHILS 77.7 % (40.0-80.0); EOSINOPHILE ABSOLUTE 0.4 Th/cmm (0.1-0.4); HEMOGLOBIN 8.4 gm/dL (12-16); LYMPHOCYTE ABSOLUTE 1.4 Th/cmm (1.5-3.0); MEAN CELL VOLUME 95.9 fl (80-99); MEAN CORPUSCULAR HEMOGLOBIN 31.7 pg (27.0-31.0); MEAN CORPUSCULAR HGB CONC 33.1 pg (28.0-36.0); MEAN PLATELET VOLUME 9.3 fl; MONOCYTE ABSOLUTE 0.6 Th/cmm (0.3-1.0); NEUTROPHILE ABSOLUTE 8.4 Th/cmm (1.8-8.0); PLATELET COUNT 320 Th/cmm (150-400); RED BLOOD COUNT 2.66 Mil/cmm (3.80-5.80); RED CELL DISTRIBUTION WIDTH 17.7 % (11.5-20.0)
[2017-03-25 04:52] LABS: HEMATOCRIT 25.5 % (41.0-60); WHITE BLOOD COUNT 10.8 Th/cmm (4.8-10.8)
[2017-03-25 05:19] LABS: ALB/GLOB RATIO 0.7 (1.0-1.8); ANION GAP 12.7 (7.0-16.0); BILIRUBIN,TOTAL 0.2 mg/dL (0.3-1.0); CALCIUM SERUM 8.6 mg/dL (8.6-10.3); CARBON DIOXIDE 22.1 mEq/L (21.0-31.0); CREATININE - SERUM 2.7 mg/dL (0.7-1.3); GFR AFRICAN-AMERICAN 30.7 ml/min (>90); GFR NON AFRICAN-AMERICAN 25.3 ml/min; MAGNESIUM 2.6 mg/dL (1.9-2.7); PHOSPHOROUS 4.2 mg/dL (2.5-5.0); POTASSIUM SERUM 3.8 mEq/L (3.5-5.1); TOTAL PROTEIN,SERUM 7.1 gm/dL (6.0-8.3); URIC ACID 9.1 mg/dL (4.4-7.6)
[2017-03-25] MEDS: Levothyroxine 0.05 Mg Tab GT SCH (06:42)
[2017-03-25] MEDS: Albuterol Nebulizer 2.5mg/3mL HHN SCH ×4 (07:16→19:20)
[2017-03-25] MEDS: Ipratropium Neb 0.5 mg/2.5 mL UD IH SCH ×4 (07:17→19:20)
[2017-03-25] MEDS: Lactobacillus Rhamnosus GG 15 Billion CFU CAP.SPRINK GT SCH (09:34)
[2017-03-25] MEDS: Pantoprazole 40 mg EC Tab PO SCH ×2 (09:35→17:30)
[2017-03-25] MEDS: Multivitamin w/ Minerals Tab GT SCH (09:35)
[2017-03-25] MEDS: Venelex 60gm Tube TP SCH (09:35)
[2017-03-25] MEDS: Levetiracetam 500 mg/5mL 5mL UDSyr *for ORAL USE ONLY GT SCH ×2 (09:35→17:35)
[2017-03-25] MEDS: Chlorhexidine Gluconate 0.12% 480mL Bottle MM SCH ×2 (10:39→23:37)
[2017-03-25] MEDS: Piperacillin/Tazobact 2.25 gm in 0.9% NS 50 ML IV SCH ×3 (12:05→23:21)
--- NOTE | 2017-03-25 12:49 | Internal Medicine Prog Note ---
Internal Medicine Subjective - Subjective Service Date: 03/25/17 Patient seen and examined:: with staff Patient is:: awake, other (nonverbal ) Per staff patient has:: tolerating meds Internal Medicine Objective - Results Result Diagrams: 03/25/17 04:42 03/25/17 04:42 Recent Labs: Laboratory Last Values WBC 10.8 Th/cmm (4.8-10.8) D 03/25/17 04:42 RBC 2.66 Mil/cmm (3.80-5.80) L 03/25/17 04:42 Hgb 8.4 gm/dL (12-16) L 03/25/17 04:42 Hct 25.5 % (41.0-60) L D 03/25/17 04:42 MCV 95.9 fl (80-99) 03/25/17 04:42 MCH 31.7 pg (27.0-31.0) H 03/25/17 04:42 MCHC Differential 33.1 pg (28.0-36.0) 03/25/17 04:42 RDW 17.7 % (11.5-20.0) 03/25/17 04:42 Plt Count 320 Th/cmm (150-400) 03/25/17 04:42 MPV 9.3 fl 03/25/17 04:42 Neutrophils % 77.7 % (40.0-80.0) 03/25/17 04:42 Lymphocytes % 12.8 % (20.0-50.0) L 03/25/17 04:42 Monocytes % 5.5 % (2.0-10.0) 03/25/17 04:42 Eosinophils % 3.9 % (0.0-5.0) 03/25/17 04:42 Basophils % 0.1 % (0.0-2.0) 03/25/17 04:42 Eos Smear Source URINE 03/24/17 14:40 Eos Smear Total Cells NONE SEEN (NONE SEEN) 03/24/17 14:40 Specimen Source Arterial 03/23/17 15:02 Sample Site Right Radial 03/23/17 15:02 pH 7.44 (7.35-7.45) 03/23/17 15:02 pCO2 39.0 mmHg (35.0-45.0) 03/23/17 15:02 pO2 164.0 mmHg (80.0-100.0) H 03/23/17 15:02 HCO3 26.7 mEq/L (20.0-26.0) H 03/23/17 15:02 Base Excess 2.2 mEq/L (-3.0-3.0) 03/23/17 15:02 O2 Saturation 100.0 % (92.0-100.0) 03/23/17 15:02 Tyrel Test YES 03/23/17 15:02 Vent Rate NA 03/23/17 15:02 Inspired O2 32 03/23/17 15:02 Tidal Volume NA 03/23/17 15:02 PEEP NA 03/23/17 15:02 Pressure (ins/psv/peep) NA 03/23/17 15:02 Critical Value SH 03/23/17 15:02 Sodium 143 mEq/L (136-145) 03/25/17 04:42 Potassium 3.8 mEq/L (3.5-5.1) 03/25/17 04:42 Chloride 112 mEq/L (98-107) H 03/25/17 04:42 Carbon Dioxide 22.1 mEq/L (21.0-31.0) 03/25/17 04:42 Anion Gap 12.7 (7.0-16.0) 03/25/17 04:42 BUN 157 mg/dL (7-25) H* 03/25/17 04:42 Creatinine 2.7 mg/dL (0.7-1.3) H 03/25/17 04:42 Est GFR ( Amer) 30.7 ml/min (>90) 03/25/17 04:42 Est GFR (Non-Af Amer) 25.3 ml/min 03/25/17 04:42 BUN/Creatinine Ratio 58.1 03/25/17 04:42 Glucose 188 mg/dL (70-105) H 03/25/17 04:42 POC Glucose 180 MG/DL (70 - 105) H 03/25/17 05:28 Hemoglobin A1c % 4.6 % (4.0-6.0) 03/24/17 04:00 Whole Bld Lactic Acid 1.57 mmol/L (0.60-1.99) 03/24/17 04:00 Uric Acid 9.1 mg/dL (4.4-7.6) H 03/25/17 04:42 Calcium 8.6 mg/dL (8.6-10.3) 03/25/17 04:42 Phosphorus 4.2 mg/dL (2.5-5.0) 03/25/17 04:42 Magnesium 2.6 mg/dL (1.9-2.7) 03/25/17 04:42 Total Bilirubin 0.2 mg/dL (0.3-1.0) L 03/25/17 04:42 AST 32 U/L (13-39) 03/25/17 04:42 ALT 70 U/L (7-52) H 03/25/17 04:42 Alkaline Phosphatase 71 U/L (34-104) 03/25/17 04:42 Ammonia 69 umol/L (16-53) H 03/24/17 04:00 B-Natriuretic Peptide 909.0 pg/mL (5.0-100.0) H 03/23/17 15:18 Total Protein 7.1 gm/dL (6.0-8.3) 03/25/17 04:42 Albumin 3.0 gm/dL (4.2-5.5) L 03/25/17 04:42 Globulin 4.1 gm/dL 03/25/17 04:42 Albumin/Globulin Ratio 0.7 (1.0-1.8) L 03/25/17 04:42 Prostate Specific Ag 0.2 ng/mL (0.0-4.0) 03/23/17 15:18 TSH 8.16 uIU/ml (0.34-5.60) H 03/25/17 04:42 Urine Source RANDOM 03/24/17 14:00 Urine Color YELLOW 03/24/17 14:00 Urine Clarity HAZY (CLEAR) 03/24/17 14:00 Urine pH 6.0 (4.6 - 8.0) 03/24/17 14:00 Ur Specific Ransom 1.010 (1.005-1.030) 03/24/17 14:00 Urine Protein 30 mg/dL (NEGATIVE) H 03/24/17 14:00 Urine Glucose (UA) NEGATIVE mg/dL (NEGATIVE) 03/24/17 14:00 Urine Ketones NEGATIVE mg/dL (NEGATIVE) 03/24/17 14:00 Urine Blood TRACE (NEGATIVE) 03/24/17 14:00 Urine Nitrate NEGATIVE (NEGATIVE) 03/24/17 14:00 Urine Bilirubin NEGATIVE (NEGATIVE) 03/24/17 14:00 Urine Urobilinogen 0.2 E.U./dL (0.2 - 1.0) 03/24/17 14:00 Ur Leukocyte Esterase MODERATE (NEGATIVE) H 03/24/17 14:00 Urine RBC 2-5 /hpf (0-5) H 03/24/17 14:00 Urine WBC 25-50 /hpf (0-5) H 03/24/17 14:00 Ur Epithelial Cells NONE SEEN /lpf (FEW) 03/24/17 14:00 Urine Bacteria FEW /hpf (NONE SEEN) 03/24/17 14:00 Urine Creatinine 33.9 mg/dl (39.0-259.0) L 03/25/17 08:00 Blood Type A POSITIVE 03/23/17 15:18 Antibody Screen NEGATIVE 03/23/17 15:18 Crossmatch See Detail 03/23/17 15:18 - Physical Exam Vitals and I&O: Vital Signs Temp 97.8 F 03/25/17 12:00 Pulse 73 03/25/17 12:00 Resp 20 03/25/17 12:00 BP 109/56 03/25/17 12:00 Pulse Ox 99 03/25/17 12:00 Intake & Output 03/24/17 03/25/17 03/25/17 18:59 06:59 18:59 Intake Total 100 3700.75 447.917 Output Total 1601 Balance 100 2099.75 447.917 Weight (lbs) 170 lb 1 oz Intake: Intake, IV Amount 100 2368.75 447.917 D5-0.45NS 1,000 ml @ 125 2168.75 447.917 mls/hr IV .Q8H ALEJANDRO Rx#: [id number] Piperacillin Sodium/ 100 200 Tazobact 2.25 gm In Sodium Chloride 0.9% 100 ml @ 100 mls/hr IV Q8HR ALEJANDRO Rx#:[id number] Tube Feeding 932 Other 400 Output: Urine 1600 Emesis 1 Other: # Bowel Movements 1 Stool Characteristics Soft Soft Liquid Liquid Active Medications: Current Medications Acetaminophen (Tylenol Extra Strength) 500 mg GT Q8HR PRN PRN Reason: Pain (Moderate) Stop: 05/22/17 22:46 Albuterol Sulfate (Albuterol 2.5mg/3ml Neb Ud) 2.5 mg HHN QIDRT [facility] Stop: 05/23/17 06:59 Last Admin: 03/25/17 11:24 Dose: 2.5 mg Ascorbic Acid (Vitamin C) 500 mg GT DAILY [facility] Stop: 05/23/17 08:59 Last Admin: 03/25/17 09:35 Dose: 500 mg Bisacodyl (Dulcolax 10 Mg Supp) 10 mg RC DAILY PRN PRN Reason: Constipation Stop: 05/22/17 22:46 [place] Oil/[place] Balsam/Trypsin (Venelex) 1 appl TP DAILY [facility] Stop: 05/23/17 16:59 Last Admin: 03/25/17 09:35 Dose: 1 appl Chlorhexidine Gluconate (Peridex) 15 ml MM Q12H [facility] Stop: 05/22/17 22:59 Last Admin: 03/25/17 10:39 Dose: 15 ml Epoetin Wei (Epogen) 10,000 units SUBQ MoWeFr@1500 [facility] Stop: 05/24/17 14:59 Guaifenesin (Robitussin) 200 mg PO Q4HR PRN PRN Reason: Cough or Congestion Stop: 05/22/17 22:55 Heparin Sodium (Porcine) (Heparin) 5,000 units SUBQ Q12HR [facility] Stop: 05/23/17 20:59 Last Admin: 03/25/17 09:35 Dose: 5,000 units Dextrose/Sodium Chloride (D5-0.45ns) 1,000 mls @ 125 mls/hr IV .Q8H [facility] Stop: 05/23/17 08:38 Last Admin: 03/25/17 09:35 Dose: 125 mls/hr Vancomycin HCl 1 gm/ Sodium (Chloride) 250 mls @ 165 mls/hr IV Q24H [facility] Stop: 05/24/17 10:59 Last Admin: 03/25/17 10:38 Dose: 165 mls/hr Piperacillin Sod/Tazobactam (Sod 2.25 gm/ Sodium Chloride) 50 mls @ 100 mls/hr IV Q6HR [facility] Stop: 05/24/17 11:59 Insulin Aspart (Novolog) 0 units SUBQ Q6HR ALEJANDRO PRN Reason: Protocol Stop: 05/23/17 11:59 Last Admin: 03/25/17 05:49 Dose: Not Given Ipratropium [place] (Atrovent Neb 0.5mg/2.5ml) 0.5 mg IH QIDRT [facility] Stop: 05/23/17 06:59 Last Admin: 03/25/17 11:38 Dose: 0.5 mg Lactobacillus Rhamnosus (Culturelle 15b) 1 each GT DAILY ALEJANDRO Stop: 05/24/17 08:59 Last Admin: 03/25/17 09:34 Dose: 1 each Levetiracetam (Keppra) 500 mg GT BID [facility] Stop: 05/23/17 08:59 Last Admin: 03/25/17 09:35 Dose: 500 mg Levothyroxine Sodium (Synthroid) 0.05 mg GT QDAC [facility] Stop: 05/23/17 07:29 Last Admin: 03/25/17 06:42 Dose: 0.05 mg Loperamide HCl (Imodium) 2 mg GT Q6H PRN PRN Reason: Diarrhea Lorazepam (Ativan) 1 mg IV Q4H PRN; Protocol PRN Reason: Seizure Stop: 05/22/17 22:55 Magnesium Hydroxide (Milk Of Magnesia) 30 ml GT HS PRN PRN Reason: Constipation Stop: 05/22/17 22:46 Metoclopramide HCl (Reglan) 5 mg GT Q6H [facility] Stop: 05/22/17 22:59 Last Admin: 03/25/17 10:38 Dose: 5 mg Miscellaneous (Vancomycin Iv Per Pharmacy) 1 ea MC PRN [facility] Stop: 05/22/17 22:59 Miscellaneous (Probiotic Screen) 1 ea MC PRN PRN PRN Reason: PROTOCOL Stop: 05/23/17 10:29 Miscellaneous (Vte Chemical Prophylaxis Screen/ Admission) 1 ea MC PRN PRN PRN Reason: PROTOCOL Stop: 05/23/17 17:14 Miscellaneous (Clinical Monitoring) 1 ea MC PRN PRN PRN Reason: RENAL DOSE ZOSYN Stop: 05/24/17 10:39 Mupirocin (Bactroban Oint) 1 appl NS BID [facility] Stop: 03/30/17 09:01 Ondansetron HCl (Zofran) 4 mg IV Q4H PRN PRN Reason: Nausea / Vomiting Stop: 05/22/17 22:55 Last Admin: 03/24/17 12:52 Dose: 4 mg Pantoprazole Sodium (Protonix) 40 mg PO BID ALEJNADRO Stop: 05/23/17 08:59 Last Admin: 03/25/17 09:35 Dose: 40 mg Sodium Bicarbonate (Sodium Bicarbonate) 650 mg GT DAILY ALEJANDRO PRN Reason: Protocol Stop: 05/23/17 08:59 Last Admin: 03/25/17 09:35 Dose: 650 mg Sodium Phosphate (Fleet Enema) 135 ml RC Q48HR PRN PRN Reason: Constipation Stop: 05/22/17 22:46 General: weak, obtunded HEENT: NC/AT, PERRLA Neck: Supple Lungs: ronchi Cardiovascular: RRR, Normal S1, Normal S2, without murmur Abdomen: soft, non-tender, non-distended, +GT, positive bowel sound Extremities: excoriation Neurological: unable to follow command - Procedures Procedures: Procedures Procedure Code Date TRANSFUSE NONAUT RED BLOOD CELLS IN PERIPH VEIN, PERC 98202A8 01/20/17 Internal Medicine Assmt/Plan - Assessment Assessment: sepsis acute renal failure mild protein calorie malnutrition hyperkalemia htn cad dyslipidemia acute on chronic respiratory failure tracheostomy status gastrostomy status - Plan Plan: continue ivabx ivf for hydration renal follow up await for sputum culture icu monitoring continue current plan of care Nutritional Asmnt/Malnutr-PDOC - Dietary Evaluation Malnutrition Findings (Please click <Entered> for more info): Nutritional Asmnt/Malnutrition Start: 03/24/17 16: 51 Text: Status: Complete Freq: Document 03/24/17 16:51 ARCHANA (Rec: 03/24/17 16:57 LCNICKY [id number]) Nutritional Asmnt/Malnutrition Patient General Information Nutritional Screening High Risk Consult Diagnosis sepsis, ARF Pertinent Medical Hx/Surgical Hx chronic respiratory failure, DM, chronic renal failure, CHF Subjective Information Consult received for chino < 12 and multiple wounds/ pressure ulvers. Pt seen resting in bed, on vent. TF was off at this time. Per nurse notes, pt had light yeallow vomitting today, TF hold for 4hr. Current Diet Order/ Nutrition Support Novasource Renal 40ml/hr continous Pertinent Medications vitamin C, d5-0.45ns, novolog, culturelle, synthroid, reglan , protonix, piperacillin Pertinent Labs 2/6 Cl 109, BUN 186, Cr 3.4, glucose 140, POC 180-193, a1c 4.6 Nutritional Hx/Data Height 5 ft 9 in Height (Calculated Centimeters) 175.3 Current Weight (lbs) 171 lb 8 oz Weight (Calculated Kilograms) 77.8 Weight (Calculated Grams) 44399.1 Olla Body Weight 160 Body Mass Index (BMI) 25.3 Weight Status Overweight GI Symptoms GI Symptoms Diarrhea Last BM no record Difficult in: None Skin Integrity/Comment: rash Estimated Nutritional Goals BEE in Kcals: Using Current wt Calories/Kcals/Kg 25-30 Kcals Calculated 8141-6789 Protein: Using Current wt Protein g/k-1.2 monitor renal labs Protein Calculated 77-92 Fluid: ml 7440-7106 Nutritional Problem 1. Problem Problem altered nutrition related lab values Etiology hx of chronic renal failure, DM Signs/Symptoms: BUN 186, Cr 3.4, glucose 140 Malnutrition Alert Protein-Calorie Malnutrition N/A Is there a minimum of two criteria No selected? Query Text:Check all the applicable criteria. A minimum of two criteria are recommended for diagnosis of either severe or non-severe malnutrition. Intervention/Recommendation Comments 1. Continue with current TF regimen. It provides 1920kcal, 87g protein, 688ml free water , meeting 100% of nutritional needs 2. Monitor TF rate, tolerance, wt weekly, skin integrity and labs 3. F/U as moderate risk in 3-5 days, 03/27-03/29 Expected Outcomes/Goals Expected Outcomes/Goals 1. Pt to meet at least 75% of nutritional needs via nutrition support with tolerance 2. Wt stability, skin to remain intact, labs to approach WNL.
--- NOTE | 2017-03-25 14:52 | General Progress Note ---
Subjective - Review of Systems Service Date: 03/25/17 Subjective: more awake, comfortable, on T piece Objective - Results Result Diagrams: 03/25/17 04:42 03/25/17 04:42 Recent Labs: Laboratory Last Values WBC 10.8 Th/cmm (4.8-10.8) D 03/25/17 04:42 RBC 2.66 Mil/cmm (3.80-5.80) L 03/25/17 04:42 Hgb 8.4 gm/dL (12-16) L 03/25/17 04:42 Hct 25.5 % (41.0-60) L D 03/25/17 04:42 MCV 95.9 fl (80-99) 03/25/17 04:42 MCH 31.7 pg (27.0-31.0) H 03/25/17 04:42 MCHC Differential 33.1 pg (28.0-36.0) 03/25/17 04:42 RDW 17.7 % (11.5-20.0) 03/25/17 04:42 Plt Count 320 Th/cmm (150-400) 03/25/17 04:42 MPV 9.3 fl 03/25/17 04:42 Neutrophils % 77.7 % (40.0-80.0) 03/25/17 04:42 Lymphocytes % 12.8 % (20.0-50.0) L 03/25/17 04:42 Monocytes % 5.5 % (2.0-10.0) 03/25/17 04:42 Eosinophils % 3.9 % (0.0-5.0) 03/25/17 04:42 Basophils % 0.1 % (0.0-2.0) 03/25/17 04:42 Eos Smear Source URINE 03/24/17 14:40 Eos Smear Total Cells NONE SEEN (NONE SEEN) 03/24/17 14:40 Specimen Source Arterial 03/23/17 15:02 Sample Site Right Radial 03/23/17 15:02 pH 7.44 (7.35-7.45) 03/23/17 15:02 pCO2 39.0 mmHg (35.0-45.0) 03/23/17 15:02 pO2 164.0 mmHg (80.0-100.0) H 03/23/17 15:02 HCO3 26.7 mEq/L (20.0-26.0) H 03/23/17 15:02 Base Excess 2.2 mEq/L (-3.0-3.0) 03/23/17 15:02 O2 Saturation 100.0 % (92.0-100.0) 03/23/17 15:02 Tyrel Test YES 03/23/17 15:02 Vent Rate NA 03/23/17 15:02 Inspired O2 32 03/23/17 15:02 Tidal Volume NA 03/23/17 15:02 PEEP NA 03/23/17 15:02 Pressure (ins/psv/peep) NA 03/23/17 15:02 Critical Value SH 03/23/17 15:02 Sodium 143 mEq/L (136-145) 03/25/17 04:42 Potassium 3.8 mEq/L (3.5-5.1) 03/25/17 04:42 Chloride 112 mEq/L (98-107) H 03/25/17 04:42 Carbon Dioxide 22.1 mEq/L (21.0-31.0) 03/25/17 04:42 Anion Gap 12.7 (7.0-16.0) 03/25/17 04:42 BUN 157 mg/dL (7-25) H* 03/25/17 04:42 Creatinine 2.7 mg/dL (0.7-1.3) H 03/25/17 04:42 Est GFR ( Amer) 30.7 ml/min (>90) 03/25/17 04:42 Est GFR (Non-Af Amer) 25.3 ml/min 03/25/17 04:42 BUN/Creatinine Ratio 58.1 03/25/17 04:42 Glucose 188 mg/dL (70-105) H 03/25/17 04:42 POC Glucose 180 MG/DL (70 - 105) H 03/25/17 05:28 Hemoglobin A1c % 4.6 % (4.0-6.0) 03/24/17 04:00 Whole Bld Lactic Acid 1.57 mmol/L (0.60-1.99) 03/24/17 04:00 Uric Acid 9.1 mg/dL (4.4-7.6) H 03/25/17 04:42 Calcium 8.6 mg/dL (8.6-10.3) 03/25/17 04:42 Phosphorus 4.2 mg/dL (2.5-5.0) 03/25/17 04:42 Magnesium 2.6 mg/dL (1.9-2.7) 03/25/17 04:42 Total Bilirubin 0.2 mg/dL (0.3-1.0) L 03/25/17 04:42 AST 32 U/L (13-39) 03/25/17 04:42 ALT 70 U/L (7-52) H 03/25/17 04:42 Alkaline Phosphatase 71 U/L (34-104) 03/25/17 04:42 Ammonia 69 umol/L (16-53) H 03/24/17 04:00 B-Natriuretic Peptide 909.0 pg/mL (5.0-100.0) H 03/23/17 15:18 Total Protein 7.1 gm/dL (6.0-8.3) 03/25/17 04:42 Albumin 3.0 gm/dL (4.2-5.5) L 03/25/17 04:42 Globulin 4.1 gm/dL 03/25/17 04:42 Albumin/Globulin Ratio 0.7 (1.0-1.8) L 03/25/17 04:42 Prostate Specific Ag 0.2 ng/mL (0.0-4.0) 03/23/17 15:18 TSH 8.16 uIU/ml (0.34-5.60) H 03/25/17 04:42 Urine Source RANDOM 03/24/17 14:00 Urine Color YELLOW 03/24/17 14:00 Urine Clarity HAZY (CLEAR) 03/24/17 14:00 Urine pH 6.0 (4.6 - 8.0) 03/24/17 14:00 Ur Specific [place] 1.010 (1.005-1.030) 03/24/17 14:00 Urine Protein 30 mg/dL (NEGATIVE) H 03/24/17 14:00 Urine Glucose (UA) NEGATIVE mg/dL (NEGATIVE) 03/24/17 14:00 Urine Ketones NEGATIVE mg/dL (NEGATIVE) 03/24/17 14:00 Urine Blood TRACE (NEGATIVE) 03/24/17 14:00 Urine Nitrate NEGATIVE (NEGATIVE) 03/24/17 14:00 Urine Bilirubin NEGATIVE (NEGATIVE) 03/24/17 14:00 Urine Urobilinogen 0.2 E.U./dL (0.2 - 1.0) 03/24/17 14:00 Ur Leukocyte Esterase MODERATE (NEGATIVE) H 03/24/17 14:00 Urine RBC 2-5 /hpf (0-5) H 03/24/17 14:00 Urine WBC 25-50 /hpf (0-5) H 03/24/17 14:00 Ur Epithelial Cells NONE SEEN /lpf (FEW) 03/24/17 14:00 Urine Bacteria FEW /hpf (NONE SEEN) 03/24/17 14:00 Urine Creatinine 33.9 mg/dl (39.0-259.0) L 03/25/17 08:00 Blood Type A POSITIVE 03/23/17 15:18 Antibody Screen NEGATIVE 03/23/17 15:18 Crossmatch See Detail 03/23/17 15:18 - Physical Exam Vitals and I&O: Vital Signs Temp 97.8 F 03/25/17 12:00 Pulse 73 03/25/17 12:00 Resp 20 03/25/17 12:00 BP 109/56 03/25/17 12:00 Pulse Ox 99 03/25/17 12:00 Intake & Output 03/24/17 03/25/17 03/25/17 18:59 06:59 18:59 Intake Total 100 3700.75 747.917 Output Total 1601 Balance 100 2099.75 747.917 Weight (lbs) 77.139 kg Intake: Intake, IV Amount 100 2368.75 747.917 D5-0.45NS 1,000 ml @ 125 2168.75 447.917 mls/hr IV .Q8H ALEJANDRO Rx#: [id number] Piperacillin Sodium/ 100 200 Tazobact 2.25 gm In Sodium Chloride 0.9% 100 ml @ 100 mls/hr IV Q8HR ALEJANDRO Rx#:[id number] Piperacillin Sodium/ 50 Tazobact 2.25 gm In Sodium Chloride 0.9% 50 ml @ 100 mls/hr IV Q6HR ALEJANDRO Rx#:[id number] Vancomycin HCl 1 gm In 250 Sodium Chloride 0.9% 250 ml @ 165 mls/hr IV Q24H ALEJANDRO Rx#:[id number] Tube Feeding 932 Other 400 Output: Urine 1600 Emesis 1 Other: # Bowel Movements 1 Stool Characteristics Soft Soft Liquid Liquid Active Medications: Current Medications Acetaminophen (Tylenol Extra Strength) 500 mg GT Q8HR PRN PRN Reason: Pain (Moderate) Stop: 05/22/17 22:46 Albuterol Sulfate (Albuterol 2.5mg/3ml Neb Ud) 2.5 mg HHN QIDRT [facility] Stop: 05/23/17 06:59 Last Admin: 03/25/17 11:24 Dose: 2.5 mg Ascorbic Acid (Vitamin C) 500 mg GT DAILY [facility] Stop: 05/23/17 08:59 Last Admin: 03/25/17 09:35 Dose: 500 mg Bisacodyl (Dulcolax 10 Mg Supp) 10 mg RC DAILY PRN PRN Reason: Constipation Stop: 05/22/17 22:46 [place] Oil/Indian Balsam/Trypsin (Venelex) 1 appl TP DAILY [facility] Stop: 05/23/17 16:59 Last Admin: 03/25/17 09:35 Dose: 1 appl Chlorhexidine Gluconate (Peridex) 15 ml MM Q12H [facility] Stop: 05/22/17 22:59 Last Admin: 03/25/17 10:39 Dose: 15 ml Epoetin Wei (Epogen) 10,000 units SUBQ MoWeFr@1500 [facility] Stop: 05/24/17 14:59 Guaifenesin (Robitussin) 200 mg PO Q4HR PRN PRN Reason: Cough or Congestion Stop: 05/22/17 22:55 Heparin Sodium (Porcine) (Heparin) 5,000 units SUBQ Q12HR [facility] Stop: 05/23/17 20:59 Last Admin: 03/25/17 09:35 Dose: 5,000 units Dextrose/Sodium Chloride (D5-0.45ns) 1,000 mls @ 125 mls/hr IV .Q8H [facility] Stop: 05/23/17 08:38 Last Admin: 03/25/17 09:35 Dose: 125 mls/hr Vancomycin HCl 1 gm/ Sodium (Chloride) 250 mls @ 165 mls/hr IV Q24H [facility] Stop: 05/24/17 10:59 Last Infusion: 03/25/17 12:10 Dose: Infused Piperacillin Sod/Tazobactam (Sod 2.25 gm/ Sodium Chloride) 50 mls @ 100 mls/hr IV Q6HR ALEJANDRO Stop: 05/24/17 11:59 Last Infusion: 03/25/17 12:35 Dose: Infused Insulin Aspart (Novolog) 0 units SUBQ Q6HR ALEJANDRO PRN Reason: Protocol Stop: 05/23/17 11:59 Last Admin: 03/25/17 13:30 Dose: 2 unit Ipratropium [place] (Atrovent Neb 0.5mg/2.5ml) 0.5 mg IH QIDRT ALEJANDRO Stop: 05/23/17 06:59 Last Admin: 03/25/17 11:38 Dose: 0.5 mg Lactobacillus Rhamnosus (Culturelle 15b) 1 each GT DAILY ALEJANDRO Stop: 05/24/17 08:59 Last Admin: 03/25/17 09:34 Dose: 1 each Levetiracetam (Keppra) 500 mg GT BID ALEJANDRO Stop: 05/23/17 08:59 Last Admin: 03/25/17 09:35 Dose: 500 mg Levothyroxine Sodium (Synthroid) 0.088 mg GT QDAC ALEJANDRO Stop: 05/24/17 13:46 Loperamide HCl (Imodium) 2 mg GT Q6H PRN PRN Reason: Diarrhea Lorazepam (Ativan) 1 mg IV Q4H PRN; Protocol PRN Reason: Seizure Stop: 05/22/17 22:55 Magnesium Hydroxide (Milk Of Magnesia) 30 ml GT HS PRN PRN Reason: Constipation Stop: 05/22/17 22:46 Metoclopramide HCl (Reglan) 5 mg GT Q6H ALEJANDRO Stop: 05/22/17 22:59 Last Admin: 03/25/17 10:38 Dose: 5 mg Miscellaneous (Vancomycin Iv Per Pharmacy) 1 ea MC PRN ALEJANDRO Stop: 05/22/17 22:59 Miscellaneous (Probiotic Screen) 1 ea MC PRN PRN PRN Reason: PROTOCOL Stop: 05/23/17 10:29 Miscellaneous (Vte Chemical Prophylaxis Screen/ Admission) 1 ea MC PRN PRN PRN Reason: PROTOCOL Stop: 05/23/17 17:14 Miscellaneous (Clinical Monitoring) 1 ea MC PRN PRN PRN Reason: RENAL DOSE ZOSYN Stop: 05/24/17 10:39 Mupirocin (Bactroban Oint) 1 appl NS BID [facility] Stop: 03/30/17 09:01 Ondansetron HCl (Zofran) 4 mg IV Q4H PRN PRN Reason: Nausea / Vomiting Stop: 05/22/17 22:55 Last Admin: 03/24/17 12:52 Dose: 4 mg Pantoprazole Sodium (Protonix) 40 mg PO BID [facility] Stop: 05/23/17 08:59 Last Admin: 03/25/17 09:35 Dose: 40 mg Sodium Bicarbonate (Sodium Bicarbonate) 650 mg GT DAILY ALEJANDRO PRN Reason: Protocol Stop: 05/23/17 08:59 Last Admin: 03/25/17 09:35 Dose: 650 mg Sodium Phosphate (Fleet Enema) 135 ml RC Q48HR PRN PRN Reason: Constipation Stop: 05/22/17 22:46 General: Alert, No acute distress HEENT: Atraumatic, PERRLA, Mucous membr. moist/pink Neck: Supple, +2 carotid pulse wo bruit Cardiovascular: Regular rate, Normal S1, Normal S2 Lungs: Other (harsh BS) Abdomen: Bowel sounds, Soft Extremities: no Edema Neurological: Sensation intact Skin: no Rash Psych/Mental Status: Mood NL - Procedures Procedures: Procedures Procedure Code Date TRANSFUSE NONAUT RED BLOOD CELLS IN PERIPH VEIN, [facility] 49968Z3 01/20/17 Assessment/Plan - Problem List Patient Problems: All Active Problems ABNORMAL LABORATORY VALUES (Acute) ABNORMAL LABORATORY VALUES (Acute) ABNORMAL LABS VALUES, BUN, WBC, K (Acute) - Assessment Assessment: REGULO on CKD (nonoliguric) Hyperkalemia Sepsis Severe Sepsis Cx UTI Sacral/ B/L Heel decub ulcers Type 2 DM Ess Htn Resp Failure on T piece - Plan Plan: Lab - Result Diagrams 03/25/17 04:42 03/25/17 04:42 Current Medications Acetaminophen (Tylenol Extra Strength) 500 mg GT Q8HR PRN PRN Reason: Pain (Moderate) Stop: 05/22/17 22:46 Albuterol Sulfate (Albuterol 2.5mg/3ml Neb Ud) 2.5 mg HHN QIDRT [facility] Stop: 05/23/17 06:59 Last Admin: 03/25/17 11:24 Dose: 2.5 mg Ascorbic Acid (Vitamin C) 500 mg GT DAILY [facility] Stop: 05/23/17 08:59 Last Admin: 03/25/17 09:35 Dose: 500 mg Bisacodyl (Dulcolax 10 Mg Supp) 10 mg RC DAILY PRN PRN Reason: Constipation Stop: 05/22/17 22:46 [place] Oil/Indian Balsam/Trypsin (Venelex) 1 appl TP DAILY [facility] Stop: 05/23/17 16:59 Last Admin: 03/25/17 09:35 Dose: 1 appl Chlorhexidine Gluconate (Peridex) 15 ml MM Q12H [facility] Stop: 05/22/17 22:59 Last Admin: 03/25/17 10:39 Dose: 15 ml Epoetin Wei (Epogen) 10,000 units SUBQ MoWeFr@1500 [facility] Stop: 05/24/17 14:59 Guaifenesin (Robitussin) 200 mg PO Q4HR PRN PRN Reason: Cough or Congestion Stop: 05/22/17 22:55 Heparin Sodium (Porcine) (Heparin) 5,000 units SUBQ Q12HR [facility] Stop: 05/23/17 20:59 Last Admin: 03/25/17 09:35 Dose: 5,000 units Dextrose/Sodium Chloride (D5-0.45ns) 1,000 mls @ 125 mls/hr IV .Q8H [facility] Stop: 05/23/17 08:38 Last Admin: 03/25/17 09:35 Dose: 125 mls/hr Vancomycin HCl 1 gm/ Sodium (Chloride) 250 mls @ 165 mls/hr IV Q24H [facility] Stop: 05/24/17 10:59 Last Infusion: 03/25/17 12:10 Dose: Infused Piperacillin Sod/Tazobactam (Sod 2.25 gm/ Sodium Chloride) 50 mls @ 100 mls/hr IV Q6HR [facility] Stop: 05/24/17 11:59 Last Infusion: 03/25/17 12:35 Dose: Infused Insulin Aspart (Novolog) 0 units SUBQ Q6HR ALEJANDRO PRN Reason: Protocol Stop: 05/23/17 11:59 Last Admin: 03/25/17 13:30 Dose: 2 unit Ipratropium [place] (Atrovent Neb 0.5mg/2.5ml) 0.5 mg IH QIDRT [facility] Stop: 05/23/17 06:59 Last Admin: 03/25/17 11:38 Dose: 0.5 mg Lactobacillus Rhamnosus (Culturelle 15b) 1 each GT DAILY [facility] Stop: 05/24/17 08:59 Last Admin: 03/25/17 09:34 Dose: 1 each Levetiracetam (Keppra) 500 mg GT BID ALEJANDRO Stop: 05/23/17 08:59 Last Admin: 03/25/17 09:35 Dose: 500 mg Levothyroxine Sodium (Synthroid) 0.088 mg GT QDAC [facility] Stop: 05/24/17 13:46 Loperamide HCl (Imodium) 2 mg GT Q6H PRN PRN Reason: Diarrhea Lorazepam (Ativan) 1 mg IV Q4H PRN; Protocol PRN Reason: Seizure Stop: 05/22/17 22:55 Magnesium Hydroxide (Milk Of Magnesia) 30 ml GT HS PRN PRN Reason: Constipation Stop: 05/22/17 22:46 Metoclopramide HCl (Reglan) 5 mg GT Q6H ALEJANDRO Stop: 05/22/17 22:59 Last Admin: 03/25/17 10:38 Dose: 5 mg Miscellaneous (Vancomycin Iv Per Pharmacy) 1 ea MC PRN [facility] Stop: 05/22/17 22:59 Miscellaneous (Probiotic Screen) 1 ea PRN PRN PRN Reason: PROTOCOL Stop: 05/23/17 10:29 Miscellaneous (Vte Chemical Prophylaxis Screen/ Admission) 1 ea PRN PRN PRN Reason: PROTOCOL Stop: 05/23/17 17:14 Miscellaneous (Clinical Monitoring) 1 ea PRN PRN PRN Reason: RENAL DOSE ZOSYN Stop: 05/24/17 10:39 Mupirocin (Bactroban Oint) 1 appl NS BID [facility] Stop: 03/30/17 09:01 Ondansetron HCl (Zofran) 4 mg IV Q4H PRN PRN Reason: Nausea / Vomiting Stop: 05/22/17 22:55 Last Admin: 03/24/17 12:52 Dose: 4 mg Pantoprazole Sodium (Protonix) 40 mg PO BID [facility] Stop: 05/23/17 08:59 Last Admin: 03/25/17 09:35 Dose: 40 mg Sodium Bicarbonate (Sodium Bicarbonate) 650 mg GT DAILY ALEJANDRO PRN Reason: Protocol Stop: 05/23/17 08:59 Last Admin: 03/25/17 09:35 Dose: 650 mg Sodium Phosphate (Fleet Enema) 135 ml RC Q48HR PRN PRN Reason: Constipation Stop: 05/22/17 22:46 Lab - Result Diagrams 03/25/17 04:42 03/25/17 04:42 Kidney fnc improving w/ hydration Most electrolytes have corrected continue to monitor electrolytes Nutritional Asmnt/Malnutr-PDOC - Dietary Evaluation Malnutrition Findings (Please click <Entered> for more info): Nutritional Asmnt/Malnutrition Start: 03/24/17 16: 51 Text: Status: Complete Freq: Document 03/24/17 16:51 LCHENG (Rec: 03/24/17 16:57 [email or web address] [id number]) Nutritional Asmnt/Malnutrition Patient General Information Nutritional Screening High Risk Consult Diagnosis sepsis, ARF Pertinent Medical Hx/Surgical Hx chronic respiratory failure, DM, chronic renal failure, CHF Subjective Information Consult received for chino < 12 and multiple wounds/ pressure ulvers. Pt seen resting in bed, on vent. TF was off at this time. Per nurse notes, pt had light yeallow vomitting today, TF hold for 4hr. Current Diet Order/ Nutrition Support Novasource Renal 40ml/hr continous Pertinent Medications vitamin C, d5-0.45ns, novolog, culturelle, synthroid, reglan , protonix, piperacillin Pertinent Labs 2/6 Cl 109, BUN 186, Cr 3.4, glucose 140, POC 180-193, a1c 4.6 Nutritional Hx/Data Height 1.75 m Height (Calculated Centimeters) 175.3 Current Weight (lbs) 77.791 kg Weight (Calculated Kilograms) 77.8 Weight (Calculated Grams) 33960.1 [place] Body Weight 160 Body Mass Index (BMI) 25.3 Weight Status Overweight GI Symptoms GI Symptoms Diarrhea Last BM no record Difficult in: None Skin Integrity/Comment: rash Estimated Nutritional Goals BEE in Kcals: Using Current wt Calories/Kcals/Kg 25-30 Kcals Calculated 0079-0632 Protein: Using Current wt Protein g/k-1.2 monitor renal labs Protein Calculated 77-92 Fluid: ml 7919-8100 Nutritional Problem 1. Problem Problem altered nutrition related lab values Etiology hx of chronic renal failure, DM Signs/Symptoms: BUN 186, Cr 3.4, glucose 140 Malnutrition Alert Protein-Calorie Malnutrition N/A Is there a minimum of two criteria No selected? Query Text:Check all the applicable criteria. A minimum of two criteria are recommended for diagnosis of either severe or non-severe malnutrition. Intervention/Recommendation Comments 1. Continue with current TF regimen. It provides 1920kcal, 87g protein, 688ml free water , meeting 100% of nutritional needs 2. Monitor TF rate, tolerance, wt weekly, skin integrity and labs 3. F/U as moderate risk in 3-5 days, 03/27-03/29 Expected Outcomes/Goals Expected Outcomes/Goals 1. Pt to meet at least 75% of nutritional needs via nutrition support with tolerance 2. Wt stability, skin to remain intact, labs to approach WNL.
[2017-03-25 15:12] LABS: FOLIC ACID >20.0 ng/mL (>3.0)
[2017-03-25] MEDS: Epoetin Alfa 20000 Units/mL Vial SUBQ SCH (15:20)
[2017-03-25] MEDS ORDERED: Levothyroxine 0.05 Mg Tab GT SCH (17:00)
[2017-03-26 04:29] LABS: % BASOPHILS 0.2 % (0.0-2.0); % EOSINOPHILS 3.4 % (0.0-5.0); % LYMPHOCYTES 13.1 % (20.0-50.0); % MONOCYTES 6.3 % (2.0-10.0); EOSINOPHILE ABSOLUTE 0.3 Th/cmm (0.1-0.4); HEMATOCRIT 24.5 % (41.0-60); HEMOGLOBIN 8.1 gm/dL (12-16); LYMPHOCYTE ABSOLUTE 1.2 Th/cmm (1.5-3.0); MEAN CELL VOLUME 95.4 fl (80-99); MEAN CORPUSCULAR HEMOGLOBIN 31.6 pg (27.0-31.0); MEAN CORPUSCULAR HGB CONC 33.2 pg (28.0-36.0); MEAN PLATELET VOLUME 9.5 fl; MONOCYTE ABSOLUTE 0.6 Th/cmm (0.3-1.0); NEUTROPHILE ABSOLUTE 7.4 Th/cmm (1.8-8.0); PLATELET COUNT 292 Th/cmm (150-400); RED BLOOD COUNT 2.57 Mil/cmm (3.80-5.80); RED CELL DISTRIBUTION WIDTH 18.1 % (11.5-20.0); WHITE BLOOD COUNT 9.5 Th/cmm (4.8-10.8)
[2017-03-26 04:51] LABS: ANION GAP 12.2 (7.0-16.0); CALCIUM SERUM 8.7 mg/dL (8.6-10.3); CARBON DIOXIDE 21.4 mEq/L (21.0-31.0); CREATININE - SERUM 2.1 mg/dL (0.7-1.3); GFR NON AFRICAN-AMERICAN 33.9 ml/min; POTASSIUM SERUM 3.6 mEq/L (3.5-5.1)
[2017-03-26] MEDS: Piperacillin/Tazobact 2.25 gm in 0.9% NS 50 ML IV SCH ×3 (05:53→17:51)
[2017-03-26] MEDS: INSULIN ASPART, RECOMBINANT 100 UNITS/ML SUBQ SCH ×3 (06:48→17:49)
[2017-03-26] MEDS: Ipratropium Neb 0.5 mg/2.5 mL UD IH SCH ×4 (07:51→19:29)
[2017-03-26] MEDS: Albuterol Nebulizer 2.5mg/3mL HHN SCH ×4 (07:51→19:29)
[2017-03-26] MEDS: Lactobacillus Rhamnosus GG 15 Billion CFU CAP.SPRINK GT SCH (09:36)
[2017-03-26] MEDS: Multivitamin w/ Minerals Tab GT SCH (09:37)
[2017-03-26] MEDS: Pantoprazole 40 mg EC Tab PO SCH ×2 (09:37→17:00)
[2017-03-26] MEDS: Levetiracetam 500 mg/5mL 5mL UDSyr *for ORAL USE ONLY GT SCH ×2 (09:37→17:02)
[2017-03-26] MEDS: D5-0.45NS 1,000 ML IV SCH ×2 (09:42→23:06)
[2017-03-26] MEDS: Chlorhexidine Gluconate 0.12% 480mL Bottle MM SCH ×2 (11:39→23:08)
[2017-03-26] MEDS: Levothyroxine 0.088 Mg Tab GT SCH (12:03)
--- NOTE | 2017-03-26 13:22 | Internal Medicine Prog Note ---
Internal Medicine Subjective - Subjective Service Date: 03/26/17 Patient seen and examined:: with staff Patient is:: awake, other (nonverbal ) Per staff patient has:: tolerating meds Internal Medicine Objective - Results Result Diagrams: 03/26/17 03:41 03/26/17 03:41 Recent Labs: Laboratory Last Values WBC 9.5 Th/cmm (4.8-10.8) 03/26/17 03:41 RBC 2.57 Mil/cmm (3.80-5.80) L 03/26/17 03:41 Hgb 8.1 gm/dL (12-16) L 03/26/17 03:41 Hct 24.5 % (41.0-60) L 03/26/17 03:41 MCV 95.4 fl (80-99) 03/26/17 03:41 MCH 31.6 pg (27.0-31.0) H 03/26/17 03:41 MCHC Differential 33.2 pg (28.0-36.0) 03/26/17 03:41 RDW 18.1 % (11.5-20.0) 03/26/17 03:41 Plt Count 292 Th/cmm (150-400) 03/26/17 03:41 MPV 9.5 fl 03/26/17 03:41 Neutrophils % 77.0 % (40.0-80.0) 03/26/17 03:41 Lymphocytes % 13.1 % (20.0-50.0) L 03/26/17 03:41 Monocytes % 6.3 % (2.0-10.0) 03/26/17 03:41 Eosinophils % 3.4 % (0.0-5.0) 03/26/17 03:41 Basophils % 0.2 % (0.0-2.0) 03/26/17 03:41 Eos Smear Source URINE 03/24/17 14:40 Eos Smear Total Cells NONE SEEN (NONE SEEN) 03/24/17 14:40 Specimen Source Arterial 03/23/17 15:02 Sample Site Right Radial 03/23/17 15:02 pH 7.44 (7.35-7.45) 03/23/17 15:02 pCO2 39.0 mmHg (35.0-45.0) 03/23/17 15:02 pO2 164.0 mmHg (80.0-100.0) H 03/23/17 15:02 HCO3 26.7 mEq/L (20.0-26.0) H 03/23/17 15:02 Base Excess 2.2 mEq/L (-3.0-3.0) 03/23/17 15:02 O2 Saturation 100.0 % (92.0-100.0) 03/23/17 15:02 Tyrel Test YES 03/23/17 15:02 Vent Rate NA 03/23/17 15:02 Inspired O2 32 03/23/17 15:02 Tidal Volume NA 03/23/17 15:02 PEEP NA 03/23/17 15:02 Pressure (ins/psv/peep) NA 03/23/17 15:02 Critical Value SH 03/23/17 15:02 Sodium 142 mEq/L (136-145) 03/26/17 03:41 Potassium 3.6 mEq/L (3.5-5.1) 03/26/17 03:41 Chloride 112 mEq/L (98-107) H 03/26/17 03:41 Carbon Dioxide 21.4 mEq/L (21.0-31.0) 03/26/17 03:41 Anion Gap 12.2 (7.0-16.0) 03/26/17 03:41 BUN 119 mg/dL (7-25) H* 03/26/17 03:41 Creatinine 2.1 mg/dL (0.7-1.3) H 03/26/17 03:41 Est GFR ( Amer) 41.0 ml/min (>90) 03/26/17 03:41 Est GFR (Non-Af Amer) 33.9 ml/min 03/26/17 03:41 BUN/Creatinine Ratio 56.7 03/26/17 03:41 Glucose 191 mg/dL (70-105) H 03/26/17 03:41 POC Glucose 204 MG/DL (70 - 105) H 03/26/17 11:30 Hemoglobin A1c % 4.6 % (4.0-6.0) 03/24/17 04:00 Whole Bld Lactic Acid 1.57 mmol/L (0.60-1.99) 03/24/17 04:00 Uric Acid 9.1 mg/dL (4.4-7.6) H 03/25/17 04:42 Calcium 8.7 mg/dL (8.6-10.3) 03/26/17 03:41 Phosphorus 4.2 mg/dL (2.5-5.0) 03/25/17 04:42 Magnesium 2.6 mg/dL (1.9-2.7) 03/25/17 04:42 Total Bilirubin 0.2 mg/dL (0.3-1.0) L 03/25/17 04:42 AST 32 U/L (13-39) 03/25/17 04:42 ALT 70 U/L (7-52) H 03/25/17 04:42 Alkaline Phosphatase 71 U/L (34-104) 03/25/17 04:42 Ammonia 69 umol/L (16-53) H 03/24/17 04:00 B-Natriuretic Peptide 909.0 pg/mL (5.0-100.0) H 03/23/17 15:18 Total Protein 7.1 gm/dL (6.0-8.3) 03/25/17 04:42 Albumin 3.0 gm/dL (4.2-5.5) L 03/25/17 04:42 Globulin 4.1 gm/dL 03/25/17 04:42 Albumin/Globulin Ratio 0.7 (1.0-1.8) L 03/25/17 04:42 Prostate Specific Ag 0.2 ng/mL (0.0-4.0) 03/23/17 15:18 Vitamin B12 952 pg/mL (232-1245) 03/24/17 04:00 Folic Acid >20.0 ng/mL (>3.0) 03/24/17 04:00 TSH 8.16 uIU/ml (0.34-5.60) H 03/25/17 04:42 Urine Source RANDOM 03/24/17 14:00 Urine Color YELLOW 03/24/17 14:00 Urine Clarity HAZY (CLEAR) 03/24/17 14:00 Urine pH 6.0 (4.6 - 8.0) 03/24/17 14:00 Ur Specific [place] 1.010 (1.005-1.030) 03/24/17 14:00 Urine Protein 30 mg/dL (NEGATIVE) H 03/24/17 14:00 Urine Glucose (UA) NEGATIVE mg/dL (NEGATIVE) 03/24/17 14:00 Urine Ketones NEGATIVE mg/dL (NEGATIVE) 03/24/17 14:00 Urine Blood TRACE (NEGATIVE) 03/24/17 14:00 Urine Nitrate NEGATIVE (NEGATIVE) 03/24/17 14:00 Urine Bilirubin NEGATIVE (NEGATIVE) 03/24/17 14:00 Urine Urobilinogen 0.2 E.U./dL (0.2 - 1.0) 03/24/17 14:00 Ur Leukocyte Esterase MODERATE (NEGATIVE) H 03/24/17 14:00 Urine RBC 2-5 /hpf (0-5) H 03/24/17 14:00 Urine WBC 25-50 /hpf (0-5) H 03/24/17 14:00 Ur Epithelial Cells NONE SEEN /lpf (FEW) 03/24/17 14:00 Urine Bacteria FEW /hpf (NONE SEEN) 03/24/17 14:00 Ur Random Sodium 33 mmol/L 03/25/17 08:00 Urine Creatinine 33.9 mg/dl (39.0-259.0) L 03/25/17 08:00 Blood Type A POSITIVE 03/23/17 15:18 Antibody Screen NEGATIVE 03/23/17 15:18 Crossmatch See Detail 03/23/17 15:18 - Physical Exam Vitals and I&O: Vital Signs Temp 97.8 F 03/26/17 08:00 Pulse 67 03/26/17 11:09 Resp 18 03/26/17 11:09 BP 117/54 03/26/17 11:00 Pulse Ox 100 03/26/17 11:09 Intake & Output 03/25/17 03/26/17 03/26/17 18:59 06:59 18:59 Intake Total 2297.917 2173.75 353.25 Output Total 1000 1300 Balance 1297.917 873.75 353.25 Weight (lbs) 181 lb 3 oz 179 lb 8 oz Intake: Intake, IV Amount 4165.006 2574.75 353.25 D5-0.45NS 1,000 ml @ 125 6785.858 4667.75 125 mls/hr IV .Q8H [facility] Rx#: [id number] Piperacillin Sodium/ 100 100 Tazobact 2.25 gm In Sodium Chloride 0.9% 50 ml @ 100 mls/hr IV Q6HR [facility] Rx#:[id number] Vancomycin HCl 1 gm In 250 228.25 Sodium Chloride 0.9% 250 ml @ 165 mls/hr IV Q24H [facility] Rx#:[id number] Oral 0 Tube Feeding 580 Other 500 Output: Urine 1000 1300 Other: # Bowel Movements 1 2 Stool Characteristics Soft Soft Soft Liquid Liquid Liquid Active Medications: Current Medications Acetaminophen (Tylenol Extra Strength) 500 mg GT Q8HR PRN PRN Reason: Pain (Moderate) Stop: 05/22/17 22:46 Albuterol Sulfate (Albuterol 2.5mg/3ml Neb Ud) 2.5 mg HHN QIDRT [facility] Stop: 05/23/17 06:59 Last Admin: 03/26/17 11:09 Dose: 2.5 mg Ascorbic Acid (Vitamin C) 500 mg GT DAILY [facility] Stop: 05/23/17 08:59 Last Admin: 03/26/17 09:37 Dose: 500 mg Bisacodyl (Dulcolax 10 Mg Supp) 10 mg RC DAILY PRN PRN Reason: Constipation Stop: 05/22/17 22:46 [place] Oil/[place] Balsam/Trypsin (Venelex) 1 appl TP DAILY [facility] Stop: 05/23/17 16:59 Last Admin: 03/25/17 09:35 Dose: 1 appl Chlorhexidine Gluconate (Peridex) 15 ml MM Q12H [facility] Stop: 05/22/17 22:59 Last Admin: 03/26/17 11:39 Dose: 15 ml Epoetin Wei (Epogen) 10,000 units SUBQ MoWeFr@1500 [facility] Stop: 05/24/17 14:59 Last Admin: 03/25/17 15:20 Dose: 10,000 units Guaifenesin (Robitussin) 200 mg PO Q4HR PRN PRN Reason: Cough or Congestion Stop: 05/22/17 22:55 Heparin Sodium (Porcine) (Heparin) 5,000 units SUBQ Q12HR [facility] Stop: 05/23/17 20:59 Last Admin: 03/26/17 09:37 Dose: 5,000 units Dextrose/Sodium Chloride (D5-0.45ns) 1,000 mls @ 125 mls/hr IV .Q8H [facility] Stop: 05/23/17 08:38 Last Admin: 03/26/17 09:42 Dose: 125 mls/hr Vancomycin HCl 1 gm/ Sodium (Chloride) 250 mls @ 165 mls/hr IV Q24H [facility] Stop: 05/24/17 10:59 Last Infusion: 03/26/17 12:59 Dose: 165 mls/hr Piperacillin Sod/Tazobactam (Sod 2.25 gm/ Sodium Chloride) 50 mls @ 100 mls/hr IV Q6HR [facility] Stop: 05/24/17 11:59 Last Admin: 03/26/17 12:58 Dose: 100 mls/hr Insulin Aspart (Novolog) 0 units SUBQ Q6HR [facility] PRN Reason: Protocol Stop: 05/23/17 11:59 Last Admin: 03/26/17 11:36 Dose: 2 unit Ipratropium [place] (Atrovent Neb 0.5mg/2.5ml) 0.5 mg IH QIDRT [facility] Stop: 05/23/17 06:59 Last Admin: 03/26/17 11:09 Dose: 0.5 mg Lactobacillus Rhamnosus (Culturelle 15b) 1 each GT DAILY [facility] Stop: 05/24/17 08:59 Last Admin: 03/26/17 09:36 Dose: 1 each Levetiracetam (Keppra) 500 mg GT BID [facility] Stop: 05/23/17 08:59 Last Admin: 03/26/17 09:37 Dose: 500 mg Levothyroxine Sodium (Synthroid) 0.088 mg GT QDAC [facility] Stop: 05/25/17 07:29 Last Admin: 03/26/17 12:03 Dose: 0.088 mg Loperamide HCl (Imodium) 2 mg GT Q6H PRN PRN Reason: Diarrhea Lorazepam (Ativan) 1 mg IV Q4H PRN; Protocol PRN Reason: Seizure Stop: 05/22/17 22:55 Magnesium Hydroxide (Milk Of Magnesia) 30 ml GT HS PRN PRN Reason: Constipation Stop: 05/22/17 22:46 Metoclopramide HCl (Reglan) 5 mg GT Q6H [facility] Stop: 05/22/17 22:59 Last Admin: 03/26/17 11:35 Dose: 5 mg Miscellaneous (Vancomycin Iv Per Pharmacy) 1 ea PRN [facility] Stop: 05/22/17 22:59 Miscellaneous (Probiotic Screen) 1 ea MC PRN PRN PRN Reason: PROTOCOL Stop: 05/23/17 10:29 Miscellaneous (Vte Chemical Prophylaxis Screen/ Admission) 1 ea MC PRN PRN PRN Reason: PROTOCOL Stop: 05/23/17 17:14 Miscellaneous (Clinical Monitoring) 1 ea MC PRN PRN PRN Reason: RENAL DOSE ZOSYN Stop: 05/24/17 10:39 Mupirocin (Bactroban Oint) 1 appl NS BID [facility] Stop: 03/30/17 09:01 Last Admin: 03/26/17 09:40 Dose: 1 appl Ondansetron HCl (Zofran) 4 mg IV Q4H PRN PRN Reason: Nausea / Vomiting Stop: 05/22/17 22:55 Last Admin: 03/25/17 22:30 Dose: 4 mg Pantoprazole Sodium (Protonix) 40 mg PO BID [facility] Stop: 05/23/17 08:59 Last Admin: 03/26/17 09:37 Dose: 40 mg Sodium Bicarbonate (Sodium Bicarbonate) 650 mg GT DAILY [facility] PRN Reason: Protocol Stop: 05/23/17 08:59 Last Admin: 03/26/17 09:36 Dose: 650 mg Sodium Phosphate (Fleet Enema) 135 ml RC Q48HR PRN PRN Reason: Constipation Stop: 05/22/17 22:46 General: weak, obtunded HEENT: NC/AT, PERRLA Neck: Supple Lungs: ronchi Cardiovascular: RRR, Normal S1, Normal S2, without murmur Abdomen: soft, non-tender, non-distended, +GT, positive bowel sound Extremities: excoriation Neurological: unable to follow command - Procedures Procedures: Procedures Procedure Code Date TRANSFUSE NONAUT RED BLOOD CELLS IN PERIPH VEIN, PERC 01225R2 01/20/17 Internal Medicine Assmt/Plan - Assessment Assessment: sepsis acute renal failure mild protein calorie malnutrition hyperkalemia htn cad dyslipidemia acute on chronic respiratory failure tracheostomy status gastrostomy status - Plan Plan: continue ivabx ivf for hydration renal follow up await for sputum culture icu monitoring continue current plan of care Nutritional Asmnt/Malnutr-PDOC - Dietary Evaluation Malnutrition Findings (Please click <Entered> for more info): Nutritional Asmnt/Malnutrition Start: 03/24/17 16: 51 Text: Status: Complete Freq: Document 03/24/17 16:51 LCHENG (Rec: 03/24/17 16:57 LCJOSE MARIAG [id number]) Nutritional Asmnt/Malnutrition Patient General Information Nutritional Screening High Risk Consult Diagnosis sepsis, ARF Pertinent Medical Hx/Surgical Hx chronic respiratory failure, DM, chronic renal failure, CHF Subjective Information Consult received for chino < 12 and multiple wounds/ pressure ulvers. Pt seen resting in bed, on vent. TF was off at this time. Per nurse notes, pt had light yeallow vomitting today, TF hold for 4hr. Current Diet Order/ Nutrition Support Novasource Renal 40ml/hr continous Pertinent Medications vitamin C, d5-0.45ns, novolog, culturelle, synthroid, reglan , protonix, piperacillin Pertinent Labs 2/ Cl 109, BUN 186, Cr 3.4, glucose 140, POC 180-193, a1c 4.6 Nutritional Hx/Data Height 5 ft 9 in Height (Calculated Centimeters) 175.3 Current Weight (lbs) 171 lb 8 oz Weight (Calculated Kilograms) 77.8 Weight (Calculated Grams) 86876.1 [place] Body Weight 160 Body Mass Index (BMI) 25.3 Weight Status Overweight GI Symptoms GI Symptoms Diarrhea Last BM no record Difficult in: None Skin Integrity/Comment: rash Estimated Nutritional Goals BEE in Kcals: Using Current wt Calories/Kcals/Kg 25-30 Kcals Calculated 8514-4686 Protein: Using Current wt Protein g/k-1.2 monitor renal labs Protein Calculated 77-92 Fluid: ml 2260-1664 Nutritional Problem 1. Problem Problem altered nutrition related lab values Etiology hx of chronic renal failure, DM Signs/Symptoms: BUN 186, Cr 3.4, glucose 140 Malnutrition Alert Protein-Calorie Malnutrition N/A Is there a minimum of two criteria No selected? Query Text:Check all the applicable criteria. A minimum of two criteria are recommended for diagnosis of either severe or non-severe malnutrition. Intervention/Recommendation Comments 1. Continue with current TF regimen. It provides 1920kcal, 87g protein, 688ml free water , meeting 100% of nutritional needs 2. Monitor TF rate, tolerance, wt weekly, skin integrity and labs 3. F/U as moderate risk in 3-5 days, 03/27-03/29 Expected Outcomes/Goals Expected Outcomes/Goals 1. Pt to meet at least 75% of nutritional needs via nutrition support with tolerance 2. Wt stability, skin to remain intact, labs to approach WNL.
--- NOTE | 2017-03-26 13:42 | General Progress Note ---
Subjective - Review of Systems Service Date: 03/26/17 Subjective: more awake, comfortable, on T piece Objective - Results Result Diagrams: 03/26/17 03:41 03/26/17 03:41 Recent Labs: Laboratory Last Values WBC 9.5 Th/cmm (4.8-10.8) 03/26/17 03:41 RBC 2.57 Mil/cmm (3.80-5.80) L 03/26/17 03:41 Hgb 8.1 gm/dL (12-16) L 03/26/17 03:41 Hct 24.5 % (41.0-60) L 03/26/17 03:41 MCV 95.4 fl (80-99) 03/26/17 03:41 MCH 31.6 pg (27.0-31.0) H 03/26/17 03:41 MCHC Differential 33.2 pg (28.0-36.0) 03/26/17 03:41 RDW 18.1 % (11.5-20.0) 03/26/17 03:41 Plt Count 292 Th/cmm (150-400) 03/26/17 03:41 MPV 9.5 fl 03/26/17 03:41 Neutrophils % 77.0 % (40.0-80.0) 03/26/17 03:41 Lymphocytes % 13.1 % (20.0-50.0) L 03/26/17 03:41 Monocytes % 6.3 % (2.0-10.0) 03/26/17 03:41 Eosinophils % 3.4 % (0.0-5.0) 03/26/17 03:41 Basophils % 0.2 % (0.0-2.0) 03/26/17 03:41 Eos Smear Source URINE 03/24/17 14:40 Eos Smear Total Cells NONE SEEN (NONE SEEN) 03/24/17 14:40 Specimen Source Arterial 03/23/17 15:02 Sample Site Right Radial 03/23/17 15:02 pH 7.44 (7.35-7.45) 03/23/17 15:02 pCO2 39.0 mmHg (35.0-45.0) 03/23/17 15:02 pO2 164.0 mmHg (80.0-100.0) H 03/23/17 15:02 HCO3 26.7 mEq/L (20.0-26.0) H 03/23/17 15:02 Base Excess 2.2 mEq/L (-3.0-3.0) 03/23/17 15:02 O2 Saturation 100.0 % (92.0-100.0) 03/23/17 15:02 Tyrel Test YES 03/23/17 15:02 Vent Rate NA 03/23/17 15:02 Inspired O2 32 03/23/17 15:02 Tidal Volume NA 03/23/17 15:02 PEEP NA 03/23/17 15:02 Pressure (ins/psv/peep) NA 03/23/17 15:02 Critical Value SH 03/23/17 15:02 Sodium 142 mEq/L (136-145) 03/26/17 03:41 Potassium 3.6 mEq/L (3.5-5.1) 03/26/17 03:41 Chloride 112 mEq/L (98-107) H 03/26/17 03:41 Carbon Dioxide 21.4 mEq/L (21.0-31.0) 03/26/17 03:41 Anion Gap 12.2 (7.0-16.0) 03/26/17 03:41 BUN 119 mg/dL (7-25) H* 03/26/17 03:41 Creatinine 2.1 mg/dL (0.7-1.3) H 03/26/17 03:41 Est GFR ( Amer) 41.0 ml/min (>90) 03/26/17 03:41 Est GFR (Non-Af Amer) 33.9 ml/min 03/26/17 03:41 BUN/Creatinine Ratio 56.7 03/26/17 03:41 Glucose 191 mg/dL (70-105) H 03/26/17 03:41 POC Glucose 204 MG/DL (70 - 105) H 03/26/17 11:30 Hemoglobin A1c % 4.6 % (4.0-6.0) 03/24/17 04:00 Whole Bld Lactic Acid 1.57 mmol/L (0.60-1.99) 03/24/17 04:00 Uric Acid 9.1 mg/dL (4.4-7.6) H 03/25/17 04:42 Calcium 8.7 mg/dL (8.6-10.3) 03/26/17 03:41 Phosphorus 4.2 mg/dL (2.5-5.0) 03/25/17 04:42 Magnesium 2.6 mg/dL (1.9-2.7) 03/25/17 04:42 Total Bilirubin 0.2 mg/dL (0.3-1.0) L 03/25/17 04:42 AST 32 U/L (13-39) 03/25/17 04:42 ALT 70 U/L (7-52) H 03/25/17 04:42 Alkaline Phosphatase 71 U/L (34-104) 03/25/17 04:42 Ammonia 69 umol/L (16-53) H 03/24/17 04:00 B-Natriuretic Peptide 909.0 pg/mL (5.0-100.0) H 03/23/17 15:18 Total Protein 7.1 gm/dL (6.0-8.3) 03/25/17 04:42 Albumin 3.0 gm/dL (4.2-5.5) L 03/25/17 04:42 Globulin 4.1 gm/dL 03/25/17 04:42 Albumin/Globulin Ratio 0.7 (1.0-1.8) L 03/25/17 04:42 Prostate Specific Ag 0.2 ng/mL (0.0-4.0) 03/23/17 15:18 Vitamin B12 952 pg/mL (232-1245) 03/24/17 04:00 Folic Acid >20.0 ng/mL (>3.0) 03/24/17 04:00 TSH 8.16 uIU/ml (0.34-5.60) H 03/25/17 04:42 Urine Source RANDOM 03/24/17 14:00 Urine Color YELLOW 03/24/17 14:00 Urine Clarity HAZY (CLEAR) 03/24/17 14:00 Urine pH 6.0 (4.6 - 8.0) 03/24/17 14:00 Ur Specific [place] 1.010 (1.005-1.030) 03/24/17 14:00 Urine Protein 30 mg/dL (NEGATIVE) H 03/24/17 14:00 Urine Glucose (UA) NEGATIVE mg/dL (NEGATIVE) 03/24/17 14:00 Urine Ketones NEGATIVE mg/dL (NEGATIVE) 03/24/17 14:00 Urine Blood TRACE (NEGATIVE) 03/24/17 14:00 Urine Nitrate NEGATIVE (NEGATIVE) 03/24/17 14:00 Urine Bilirubin NEGATIVE (NEGATIVE) 03/24/17 14:00 Urine Urobilinogen 0.2 E.U./dL (0.2 - 1.0) 03/24/17 14:00 Ur Leukocyte Esterase MODERATE (NEGATIVE) H 03/24/17 14:00 Urine RBC 2-5 /hpf (0-5) H 03/24/17 14:00 Urine WBC 25-50 /hpf (0-5) H 03/24/17 14:00 Ur Epithelial Cells NONE SEEN /lpf (FEW) 03/24/17 14:00 Urine Bacteria FEW /hpf (NONE SEEN) 03/24/17 14:00 Ur Random Sodium 33 mmol/L 03/25/17 08:00 Urine Creatinine 33.9 mg/dl (39.0-259.0) L 03/25/17 08:00 Blood Type A POSITIVE 03/23/17 15:18 Antibody Screen NEGATIVE 03/23/17 15:18 Crossmatch See Detail 03/23/17 15:18 - Physical Exam Vitals and I&O: Vital Signs Temp 97.8 F 03/26/17 08:00 Pulse 67 03/26/17 11:09 Resp 18 03/26/17 11:09 BP 117/54 03/26/17 11:00 Pulse Ox 100 03/26/17 11:09 Intake & Output 03/25/17 03/26/17 03/26/17 18:59 06:59 18:59 Intake Total 2297.917 2173.75 353.25 Output Total 1000 1300 Balance 1297.917 873.75 353.25 Weight (lbs) 82.185 kg 81.42 kg Intake: Intake, IV Amount 7249.231 4985.75 353.25 D5-0.45NS 1,000 ml @ 125 6444.018 7550.75 125 mls/hr IV .Q8H [facility] Rx#: [id number] Piperacillin Sodium/ 100 100 Tazobact 2.25 gm In Sodium Chloride 0.9% 50 ml @ 100 mls/hr IV Q6HR [facility]LE[facility] Rx#:[id number] Vancomycin HCl 1 gm In 250 228.25 Sodium Chloride 0.9% 250 ml @ 165 mls/hr IV Q24H [facility] Rx#:[id number] Oral 0 Tube Feeding 580 Other 500 Output: Urine 1000 1300 Other: # Bowel Movements 1 2 Stool Characteristics Soft Soft Soft Liquid Liquid Liquid Active Medications: Current Medications Acetaminophen (Tylenol Extra Strength) 500 mg GT Q8HR PRN PRN Reason: Pain (Moderate) Stop: 05/22/17 22:46 Albuterol Sulfate (Albuterol 2.5mg/3ml Neb Ud) 2.5 mg HHN QIDRT [facility] Stop: 05/23/17 06:59 Last Admin: 03/26/17 11:09 Dose: 2.5 mg Ascorbic Acid (Vitamin C) 500 mg GT DAILY [facility] Stop: 05/23/17 08:59 Last Admin: 03/26/17 09:37 Dose: 500 mg Bisacodyl (Dulcolax 10 Mg Supp) 10 mg RC DAILY PRN PRN Reason: Constipation Stop: 05/22/17 22:46 [place] Oil/[place] Balsam/Trypsin (Venelex) 1 appl TP DAILY [facility] Stop: 05/23/17 16:59 Last Admin: 03/25/17 09:35 Dose: 1 appl Chlorhexidine Gluconate (Peridex) 15 ml MM Q12H [facility] Stop: 05/22/17 22:59 Last Admin: 03/26/17 11:39 Dose: 15 ml Epoetin Wei (Epogen) 10,000 units SUBQ MoWeFr@1500 [facility] Stop: 05/24/17 14:59 Last Admin: 03/25/17 15:20 Dose: 10,000 units Guaifenesin (Robitussin) 200 mg PO Q4HR PRN PRN Reason: Cough or Congestion Stop: 05/22/17 22:55 Heparin Sodium (Porcine) (Heparin) 5,000 units SUBQ Q12HR [facility] Stop: 05/23/17 20:59 Last Admin: 03/26/17 09:37 Dose: 5,000 units Dextrose/Sodium Chloride (D5-0.45ns) 1,000 mls @ 125 mls/hr IV .Q8H [facility] Stop: 05/23/17 08:38 Last Admin: 03/26/17 09:42 Dose: 125 mls/hr Vancomycin HCl 1 gm/ Sodium (Chloride) 250 mls @ 165 mls/hr IV Q24H [facility] Stop: 05/24/17 10:59 Last Infusion: 03/26/17 12:59 Dose: 165 mls/hr Piperacillin Sod/Tazobactam (Sod 2.25 gm/ Sodium Chloride) 50 mls @ 100 mls/hr IV Q6HR [facility] Stop: 05/24/17 11:59 Last Admin: 03/26/17 12:58 Dose: 100 mls/hr Insulin Aspart (Novolog) 0 units SUBQ Q6HR [facility] PRN Reason: Protocol Stop: 05/23/17 11:59 Last Admin: 03/26/17 11:36 Dose: 2 unit Ipratropium [place] (Atrovent Neb 0.5mg/2.5ml) 0.5 mg IH QIDRT [facility] Stop: 05/23/17 06:59 Last Admin: 03/26/17 11:09 Dose: 0.5 mg Lactobacillus Rhamnosus (Culturelle 15b) 1 each GT DAILY [facility] Stop: 05/24/17 08:59 Last Admin: 03/26/17 09:36 Dose: 1 each Levetiracetam (Keppra) 500 mg GT BID [facility] Stop: 05/23/17 08:59 Last Admin: 03/26/17 09:37 Dose: 500 mg Levothyroxine Sodium (Synthroid) 0.088 mg GT QDAC [facility] Stop: 05/25/17 07:29 Last Admin: 03/26/17 12:03 Dose: 0.088 mg Loperamide HCl (Imodium) 2 mg GT Q6H PRN PRN Reason: Diarrhea Lorazepam (Ativan) 1 mg IV Q4H PRN; Protocol PRN Reason: Seizure Stop: 05/22/17 22:55 Magnesium Hydroxide (Milk Of Magnesia) 30 ml GT HS PRN PRN Reason: Constipation Stop: 05/22/17 22:46 Metoclopramide HCl (Reglan) 5 mg GT Q6H [facility] Stop: 05/22/17 22:59 Last Admin: 03/26/17 11:35 Dose: 5 mg Miscellaneous (Vancomycin Iv Per Pharmacy) 1 ea MC PRN [facility] Stop: 05/22/17 22:59 Miscellaneous (Probiotic Screen) 1 ea PRN PRN PRN Reason: PROTOCOL Stop: 05/23/17 10:29 Miscellaneous (Vte Chemical Prophylaxis Screen/ Admission) 1 ea MC PRN PRN PRN Reason: PROTOCOL Stop: 05/23/17 17:14 Miscellaneous (Clinical Monitoring) 1 ea MC PRN PRN PRN Reason: RENAL DOSE ZOSYN Stop: 05/24/17 10:39 Mupirocin (Bactroban Oint) 1 appl NS BID [facility] Stop: 03/30/17 09:01 Last Admin: 03/26/17 09:40 Dose: 1 appl Ondansetron HCl (Zofran) 4 mg IV Q4H PRN PRN Reason: Nausea / Vomiting Stop: 05/22/17 22:55 Last Admin: 03/25/17 22:30 Dose: 4 mg Pantoprazole Sodium (Protonix) 40 mg PO BID [facility] Stop: 05/23/17 08:59 Last Admin: 03/26/17 09:37 Dose: 40 mg Sodium Bicarbonate (Sodium Bicarbonate) 650 mg GT DAILY [facility] PRN Reason: Protocol Stop: 05/23/17 08:59 Last Admin: 03/26/17 09:36 Dose: 650 mg Sodium Phosphate (Fleet Enema) 135 ml RC Q48HR PRN PRN Reason: Constipation Stop: 05/22/17 22:46 General: Alert, No acute distress HEENT: Atraumatic, PERRLA, Mucous membr. moist/pink Neck: Supple, +2 carotid pulse wo bruit Cardiovascular: Regular rate, Normal S1, Normal S2 Lungs: Other (harsh BS) Abdomen: Bowel sounds, Soft Extremities: no Edema Neurological: Sensation intact Skin: no Rash Psych/Mental Status: Mood NL - Procedures Procedures: Procedures Procedure Code Date TRANSFUSE NONAUT RED BLOOD CELLS IN PERIPH VEIN, [facility] 29844S8 01/20/17 Assessment/Plan - Problem List Patient Problems: All Active Problems ABNORMAL LABORATORY VALUES (Acute) ABNORMAL LABORATORY VALUES (Acute) ABNORMAL LABS VALUES, BUN, WBC, K (Acute) - Assessment Assessment: REGULO on CKD (nonoliguric) Hyperkalemia Sepsis Severe Sepsis Cx UTI Sacral/ B/L Heel decub ulcers Type 2 DM Ess Htn Resp Failure on T piece - Plan Plan: Lab - Result Diagrams 03/25/17 04:42 03/25/17 04:42 Current Medications Acetaminophen (Tylenol Extra Strength) 500 mg GT Q8HR PRN PRN Reason: Pain (Moderate) Stop: 05/22/17 22:46 Albuterol Sulfate (Albuterol 2.5mg/3ml Neb Ud) 2.5 mg HHN QIDRT [facility] Stop: 05/23/17 06:59 Last Admin: 03/25/17 11:24 Dose: 2.5 mg Ascorbic Acid (Vitamin C) 500 mg GT DAILY [facility] Stop: 05/23/17 08:59 Last Admin: 03/25/17 09:35 Dose: 500 mg Bisacodyl (Dulcolax 10 Mg Supp) 10 mg RC DAILY PRN PRN Reason: Constipation Stop: 05/22/17 22:46 [place] Oil/[place] Balsam/Trypsin (Venelex) 1 appl TP DAILY [facility] Stop: 05/23/17 16:59 Last Admin: 03/25/17 09:35 Dose: 1 appl Chlorhexidine Gluconate (Peridex) 15 ml MM Q12H [facility] Stop: 05/22/17 22:59 Last Admin: 03/25/17 10:39 Dose: 15 ml Epoetin Wei (Epogen) 10,000 units SUBQ MoWeFr@1500 [facility] Stop: 05/24/17 14:59 Guaifenesin (Robitussin) 200 mg PO Q4HR PRN PRN Reason: Cough or Congestion Stop: 05/22/17 22:55 Heparin Sodium (Porcine) (Heparin) 5,000 units SUBQ Q12HR [facility] Stop: 05/23/17 20:59 Last Admin: 03/25/17 09:35 Dose: 5,000 units Dextrose/Sodium Chloride (D5-0.45ns) 1,000 mls @ 125 mls/hr IV .Q8H [facility] Stop: 05/23/17 08:38 Last Admin: 03/25/17 09:35 Dose: 125 mls/hr Vancomycin HCl 1 gm/ Sodium (Chloride) 250 mls @ 165 mls/hr IV Q24H [facility] Stop: 05/24/17 10:59 Last Infusion: 03/25/17 12:10 Dose: Infused Piperacillin Sod/Tazobactam (Sod 2.25 gm/ Sodium Chloride) 50 mls @ 100 mls/hr IV Q6HR [facility] Stop: 05/24/17 11:59 Last Infusion: 03/25/17 12:35 Dose: Infused Insulin Aspart (Novolog) 0 units SUBQ Q6HR [facility] PRN Reason: Protocol Stop: 05/23/17 11:59 Last Admin: 03/25/17 13:30 Dose: 2 unit Ipratropium [place] (Atrovent Neb 0.5mg/2.5ml) 0.5 mg IH QIDRT [facility] Stop: 05/23/17 06:59 Last Admin: 03/25/17 11:38 Dose: 0.5 mg Lactobacillus Rhamnosus (Culturelle 15b) 1 each GT DAILY [facility] Stop: 05/24/17 08:59 Last Admin: 03/25/17 09:34 Dose: 1 each Levetiracetam (Keppra) 500 mg GT BID [facility] Stop: 05/23/17 08:59 Last Admin: 03/25/17 09:35 Dose: 500 mg Levothyroxine Sodium (Synthroid) 0.088 mg GT QDAC [facility] Stop: 05/24/17 13:46 Loperamide HCl (Imodium) 2 mg GT Q6H PRN PRN Reason: Diarrhea Lorazepam (Ativan) 1 mg IV Q4H PRN; Protocol PRN Reason: Seizure Stop: 05/22/17 22:55 Magnesium Hydroxide (Milk Of Magnesia) 30 ml GT HS PRN PRN Reason: Constipation Stop: 05/22/17 22:46 Metoclopramide HCl (Reglan) 5 mg GT Q6H [facility] Stop: 05/22/17 22:59 Last Admin: 03/25/17 10:38 Dose: 5 mg Miscellaneous (Vancomycin Iv Per Pharmacy) 1 ea MC PRN [facility] Stop: 05/22/17 22:59 Miscellaneous (Probiotic Screen) 1 ea MC PRN PRN PRN Reason: PROTOCOL Stop: 05/23/17 10:29 Miscellaneous (Vte Chemical Prophylaxis Screen/ Admission) 1 ea MC PRN PRN PRN Reason: PROTOCOL Stop: 05/23/17 17:14 Miscellaneous (Clinical Monitoring) 1 ea MC PRN PRN PRN Reason: RENAL DOSE ZOSYN Stop: 05/24/17 10:39 Mupirocin (Bactroban Oint) 1 appl NS BID [facility] Stop: 03/30/17 09:01 Ondansetron HCl (Zofran) 4 mg IV Q4H PRN PRN Reason: Nausea / Vomiting Stop: 05/22/17 22:55 Last Admin: 03/24/17 12:52 Dose: 4 mg Pantoprazole Sodium (Protonix) 40 mg PO BID [facility] Stop: 05/23/17 08:59 Last Admin: 03/25/17 09:35 Dose: 40 mg Sodium Bicarbonate (Sodium Bicarbonate) 650 mg GT DAILY [facility] PRN Reason: Protocol Stop: 05/23/17 08:59 Last Admin: 03/25/17 09:35 Dose: 650 mg Sodium Phosphate (Fleet Enema) 135 ml RC Q48HR PRN PRN Reason: Constipation Stop: 05/22/17 22:46 Lab - Result Diagrams 03/26/17 03:41 03/26/17 03:41 Kidney fnc improving w/ hydration Most electrolytes have corrected continue to monitor electrolytes Nutritional Asmnt/Malnutr-PDOC - Dietary Evaluation Malnutrition Findings (Please click <Entered> for more info): Nutritional Asmnt/Malnutrition Start: 03/24/17 16: 51 Text: Status: Complete Freq: Document 03/24/17 16:51 ARCHANA (Rec: 03/24/17 16:57 LCHENG [id number]) Nutritional Asmnt/Malnutrition Patient General Information Nutritional Screening High Risk Consult Diagnosis sepsis, ARF Pertinent Medical Hx/Surgical Hx chronic respiratory failure, DM, chronic renal failure, CHF Subjective Information Consult received for chino < 12 and multiple wounds/ pressure ulvers. Pt seen resting in bed, on vent. TF was off at this time. Per nurse notes, pt had light yeallow vomitting today, TF hold for 4hr. Current Diet Order/ Nutrition Support Novasource Renal 40ml/hr continous Pertinent Medications vitamin C, d5-0.45ns, novolog, culturelle, synthroid, reglan , protonix, piperacillin Pertinent Labs 2/6 Cl 109, BUN 186, Cr 3.4, glucose 140, POC 180-193, a1c 4.6 Nutritional Hx/Data Height 1.75 m Height (Calculated Centimeters) 175.3 Current Weight (lbs) 77.791 kg Weight (Calculated Kilograms) 77.8 Weight (Calculated Grams) 35408.1 [place] Body Weight 160 Body Mass Index (BMI) 25.3 Weight Status Overweight GI Symptoms GI Symptoms Diarrhea Last BM no record Difficult in: None Skin Integrity/Comment: rash Estimated Nutritional Goals BEE in Kcals: Using Current wt Calories/Kcals/Kg 25-30 Kcals Calculated 3204-3895 Protein: Using Current wt Protein g/k-1.2 monitor renal labs Protein Calculated 77-92 Fluid: ml 1140-2613 Nutritional Problem 1. Problem Problem altered nutrition related lab values Etiology hx of chronic renal failure, DM Signs/Symptoms: BUN 186, Cr 3.4, glucose 140 Malnutrition Alert Protein-Calorie Malnutrition N/A Is there a minimum of two criteria No selected? Query Text:Check all the applicable criteria. A minimum of two criteria are recommended for diagnosis of either severe or non-severe malnutrition. Intervention/Recommendation Comments 1. Continue with current TF regimen. It provides 1920kcal, 87g protein, 688ml free water , meeting 100% of nutritional needs 2. Monitor TF rate, tolerance, wt weekly, skin integrity and labs 3. F/U as moderate risk in 3-5 days, 03/27-03/29 Expected Outcomes/Goals Expected Outcomes/Goals 1. Pt to meet at least 75% of nutritional needs via nutrition support with tolerance 2. Wt stability, skin to remain intact, labs to approach WNL.
[2017-03-26] MEDS: Venelex 60gm Tube TP SCH (14:00)
[2017-03-27] MEDS: INSULIN ASPART, RECOMBINANT 100 UNITS/ML SUBQ SCH ×4 (00:13→20:06)
[2017-03-27] MEDS: Piperacillin/Tazobact 2.25 gm in 0.9% NS 50 ML IV SCH ×2 (00:15→06:01)
[2017-03-27 05:08] LABS: ANION GAP 10.2 (7.0-16.0); CALCIUM SERUM 8.8 mg/dL (8.6-10.3); CARBON DIOXIDE 22.7 mEq/L (21.0-31.0); CREATININE - SERUM 1.6 mg/dL (0.7-1.3); GFR AFRICAN-AMERICAN 56.1 ml/min (>90); GFR NON AFRICAN-AMERICAN 46.3 ml/min; POTASSIUM SERUM 3.9 mEq/L (3.5-5.1)
[2017-03-27 05:15] LABS: % BASOPHILS 0.2 % (0.0-2.0); % EOSINOPHILS 2.8 % (0.0-5.0); % LYMPHOCYTES 14.6 % (20.0-50.0); % MONOCYTES 5.8 % (2.0-10.0); % NEUTROPHILS 76.6 % (40.0-80.0); EOSINOPHILE ABSOLUTE 0.3 Th/cmm (0.1-0.4); HEMATOCRIT 24.7 % (41.0-60); HEMOGLOBIN 8.2 gm/dL (12-16); LYMPHOCYTE ABSOLUTE 1.4 Th/cmm (1.5-3.0); MEAN CORPUSCULAR HEMOGLOBIN 31.5 pg (27.0-31.0); MEAN CORPUSCULAR HGB CONC 33.2 pg (28.0-36.0); MEAN PLATELET VOLUME 9.7 fl; MONOCYTE ABSOLUTE 0.6 Th/cmm (0.3-1.0); NEUTROPHILE ABSOLUTE 7.5 Th/cmm (1.8-8.0); PLATELET COUNT 314 Th/cmm (150-400); RED CELL DISTRIBUTION WIDTH 17.4 % (11.5-20.0); WHITE BLOOD COUNT 9.8 Th/cmm (4.8-10.8)
[2017-03-27] MEDS: Albuterol Nebulizer 2.5mg/3mL HHN SCH ×4 (07:53→19:16)
[2017-03-27] MEDS: Ipratropium Neb 0.5 mg/2.5 mL UD IH SCH ×4 (07:53→19:16)
[2017-03-27] MEDS: Lactobacillus Rhamnosus GG 15 Billion CFU CAP.SPRINK GT SCH (09:00)
[2017-03-27] MEDS: Chlorhexidine Gluconate 0.12% 480mL Bottle MM SCH ×2 (09:00→22:09)
[2017-03-27] MEDS: Pantoprazole 40 mg EC Tab PO SCH ×2 (09:35→17:00)
[2017-03-27] MEDS: Multivitamin w/ Minerals Tab GT SCH (09:35)
[2017-03-27] MEDS: Levetiracetam 500 mg/5mL 5mL UDSyr *for ORAL USE ONLY GT SCH ×2 (09:36→17:00)
[2017-03-27] MEDS: Levothyroxine 0.088 Mg Tab GT SCH (10:02)
--- NOTE | 2017-03-27 14:11 | General Progress Note ---
Subjective - Review of Systems Service Date: 03/27/17 Subjective: more awake, comfortable, on T piece Objective - Results Result Diagrams: 03/27/17 04:35 03/27/17 04:35 Recent Labs: Laboratory Last Values WBC 9.8 Th/cmm (4.8-10.8) 03/27/17 04:35 RBC 2.60 Mil/cmm (3.80-5.80) L 03/27/17 04:35 Hgb 8.2 gm/dL (12-16) L 03/27/17 04:35 Hct 24.7 % (41.0-60) L 03/27/17 04:35 MCV 95.0 fl (80-99) 03/27/17 04:35 MCH 31.5 pg (27.0-31.0) H 03/27/17 04:35 MCHC Differential 33.2 pg (28.0-36.0) 03/27/17 04:35 RDW 17.4 % (11.5-20.0) 03/27/17 04:35 Plt Count 314 Th/cmm (150-400) 03/27/17 04:35 MPV 9.7 fl 03/27/17 04:35 Neutrophils % 76.6 % (40.0-80.0) 03/27/17 04:35 Lymphocytes % 14.6 % (20.0-50.0) L 03/27/17 04:35 Monocytes % 5.8 % (2.0-10.0) 03/27/17 04:35 Eosinophils % 2.8 % (0.0-5.0) 03/27/17 04:35 Basophils % 0.2 % (0.0-2.0) 03/27/17 04:35 Eos Smear Source URINE 03/24/17 14:40 Eos Smear Total Cells NONE SEEN (NONE SEEN) 03/24/17 14:40 Specimen Source Arterial 03/23/17 15:02 Sample Site Right Radial 03/23/17 15:02 pH 7.44 (7.35-7.45) 03/23/17 15:02 pCO2 39.0 mmHg (35.0-45.0) 03/23/17 15:02 pO2 164.0 mmHg (80.0-100.0) H 03/23/17 15:02 HCO3 26.7 mEq/L (20.0-26.0) H 03/23/17 15:02 Base Excess 2.2 mEq/L (-3.0-3.0) 03/23/17 15:02 O2 Saturation 100.0 % (92.0-100.0) 03/23/17 15:02 Tyrel Test YES 03/23/17 15:02 Vent Rate NA 03/23/17 15:02 Inspired O2 32 03/23/17 15:02 Tidal Volume NA 03/23/17 15:02 PEEP NA 03/23/17 15:02 Pressure (ins/psv/peep) NA 03/23/17 15:02 Critical Value SH 03/23/17 15:02 Sodium 145 mEq/L (136-145) 03/27/17 04:35 Potassium 3.9 mEq/L (3.5-5.1) 03/27/17 04:35 Chloride 116 mEq/L (98-107) H 03/27/17 04:35 Carbon Dioxide 22.7 mEq/L (21.0-31.0) 03/27/17 04:35 Anion Gap 10.2 (7.0-16.0) 03/27/17 04:35 BUN 91 mg/dL (7-25) H* 03/27/17 04:35 Creatinine 1.6 mg/dL (0.7-1.3) H 03/27/17 04:35 Est GFR ( Amer) 56.1 ml/min (>90) 03/27/17 04:35 Est GFR (Non-Af Amer) 46.3 ml/min 03/27/17 04:35 BUN/Creatinine Ratio 56.9 03/27/17 04:35 Glucose 128 mg/dL (70-105) H 03/27/17 04:35 POC Glucose 192 MG/DL (70 - 105) H 03/27/17 11:49 Hemoglobin A1c % 4.6 % (4.0-6.0) 03/24/17 04:00 Whole Bld Lactic Acid 1.57 mmol/L (0.60-1.99) 03/24/17 04:00 Uric Acid 9.1 mg/dL (4.4-7.6) H 03/25/17 04:42 Calcium 8.8 mg/dL (8.6-10.3) 03/27/17 04:35 Phosphorus 4.2 mg/dL (2.5-5.0) 03/25/17 04:42 Magnesium 2.6 mg/dL (1.9-2.7) 03/25/17 04:42 Total Bilirubin 0.2 mg/dL (0.3-1.0) L 03/25/17 04:42 AST 32 U/L (13-39) 03/25/17 04:42 ALT 70 U/L (7-52) H 03/25/17 04:42 Alkaline Phosphatase 71 U/L (34-104) 03/25/17 04:42 Ammonia 69 umol/L (16-53) H 03/24/17 04:00 B-Natriuretic Peptide 909.0 pg/mL (5.0-100.0) H 03/23/17 15:18 Total Protein 7.1 gm/dL (6.0-8.3) 03/25/17 04:42 Albumin 3.0 gm/dL (4.2-5.5) L 03/25/17 04:42 Globulin 4.1 gm/dL 03/25/17 04:42 Albumin/Globulin Ratio 0.7 (1.0-1.8) L 03/25/17 04:42 Prostate Specific Ag 0.2 ng/mL (0.0-4.0) 03/23/17 15:18 Vitamin B12 952 pg/mL (232-1245) 03/24/17 04:00 Folic Acid >20.0 ng/mL (>3.0) 03/24/17 04:00 TSH 8.16 uIU/ml (0.34-5.60) H 03/25/17 04:42 Urine Source RANDOM 03/24/17 14:00 Urine Color YELLOW 03/24/17 14:00 Urine Clarity HAZY (CLEAR) 03/24/17 14:00 Urine pH 6.0 (4.6 - 8.0) 03/24/17 14:00 Ur Specific [place] 1.010 (1.005-1.030) 03/24/17 14:00 Urine Protein 30 mg/dL (NEGATIVE) H 03/24/17 14:00 Urine Glucose (UA) NEGATIVE mg/dL (NEGATIVE) 03/24/17 14:00 Urine Ketones NEGATIVE mg/dL (NEGATIVE) 03/24/17 14:00 Urine Blood TRACE (NEGATIVE) 03/24/17 14:00 Urine Nitrate NEGATIVE (NEGATIVE) 03/24/17 14:00 Urine Bilirubin NEGATIVE (NEGATIVE) 03/24/17 14:00 Urine Urobilinogen 0.2 E.U./dL (0.2 - 1.0) 03/24/17 14:00 Ur Leukocyte Esterase MODERATE (NEGATIVE) H 03/24/17 14:00 Urine RBC 2-5 /hpf (0-5) H 03/24/17 14:00 Urine WBC 25-50 /hpf (0-5) H 03/24/17 14:00 Ur Epithelial Cells NONE SEEN /lpf (FEW) 03/24/17 14:00 Urine Bacteria FEW /hpf (NONE SEEN) 03/24/17 14:00 Ur Random Sodium 33 mmol/L 03/25/17 08:00 Urine Creatinine 33.9 mg/dl (39.0-259.0) L 03/25/17 08:00 Vancomycin Trough 11.5 ug/mL (10-20) 03/27/17 10:10 Blood Type A POSITIVE 03/23/17 15:18 Antibody Screen NEGATIVE 03/23/17 15:18 Crossmatch See Detail 03/23/17 15:18 - Physical Exam Vitals and I&O: Vital Signs Temp 97.8 F 03/27/17 08:00 Pulse 80 03/27/17 13:01 Resp 20 03/27/17 13:01 BP 119/51 03/27/17 11:00 Pulse Ox 100 03/27/17 13:01 Intake & Output 03/26/17 03/27/17 03/27/17 18:59 06:59 18:59 Intake Total 905.00 1520 Output Total 1200 1400 Balance -295.00 120 Weight (lbs) 81.193 kg 80.768 kg Intake: Intake, IV Amount 425.00 840 D5-0.45NS 1,000 ml @ 100 690 mls/hr IV .Q10H [facility] Rx#: [id number] D5-0.45NS 1,000 ml @ 125 125 mls/hr IV .Q8H [facility] Rx#: [id number] Piperacillin Sodium/ 50 150 Tazobact 2.25 gm In Sodium Chloride 0.9% 50 ml @ 100 mls/hr IV Q6HR [facility] Rx#:[id number] Vancomycin HCl 1 gm In 250.00 Sodium Chloride 0.9% 250 ml @ 165 mls/hr IV Q24H [facility] Rx#:[id number] Tube Feeding 480 480 Other 200 Output: Urine 1200 1400 Other: # Bowel Movements 2 0 Stool Characteristics Soft Liquid Active Medications: Current Medications Acetaminophen (Tylenol Extra Strength) 500 mg GT Q8HR PRN PRN Reason: Pain (Moderate) Stop: 05/22/17 22:46 Albuterol Sulfate (Albuterol 2.5mg/3ml Neb Ud) 2.5 mg HHN QIDRT [facility] Stop: 05/23/17 06:59 Last Admin: 03/27/17 13:01 Dose: 2.5 mg Ascorbic Acid (Vitamin C) 500 mg GT DAILY [facility] Stop: 05/23/17 08:59 Last Admin: 03/27/17 09:39 Dose: 500 mg Bisacodyl (Dulcolax 10 Mg Supp) 10 mg RC DAILY PRN PRN Reason: Constipation Stop: 05/22/17 22:46 [place] Oil/[place] Balsam/Trypsin (Venelex) 1 appl TP DAILY [facility] Stop: 05/23/17 16:59 Last Admin: 03/26/17 14:00 Dose: 1 appl Chlorhexidine Gluconate (Peridex) 15 ml MM Q12H [facility] Stop: 05/22/17 22:59 Last Admin: 03/26/17 23:08 Dose: 15 ml Epoetin Wei (Epogen) 10,000 units SUBQ MoWeFr@1500 [facility] Stop: 05/24/17 14:59 Last Admin: 03/25/17 15:20 Dose: 10,000 units Guaifenesin (Robitussin) 200 mg PO Q4HR PRN PRN Reason: Cough or Congestion Stop: 05/22/17 22:55 Heparin Sodium (Porcine) (Heparin) 5,000 units SUBQ Q12HR [facility] Stop: 05/23/17 20:59 Last Admin: 03/27/17 09:36 Dose: 5,000 units Vancomycin HCl 1 gm/ Sodium (Chloride) 250 mls @ 165 mls/hr IV Q24H [facility] Stop: 03/27/17 15:00 Last Admin: 03/27/17 12:08 Dose: 165 mls/hr Dextrose/Sodium Chloride (D5-0.45ns) 1,000 mls @ 100 mls/hr IV .Q10H [facility] Stop: 05/25/17 13:41 Last Infusion: 03/27/17 06:00 Dose: 100 mls/hr Vancomycin HCl 1.25 gm/ Sodium (Chloride) 250 mls @ 165 mls/hr IV Q24H [facility] Stop: 05/27/17 08:59 Piperacillin Sod/Tazobactam (Sod 3.375 gm/ Sodium Chloride) 50 mls @ 100 mls/ hr IV Q6HR [facility] Stop: 05/26/17 11:59 Insulin Aspart (Novolog) 0 units SUBQ Q6HR [facility] PRN Reason: Protocol Stop: 05/23/17 11:59 Last Admin: 03/27/17 11:51 Dose: Not Given Ipratropium [place] (Atrovent Neb 0.5mg/2.5ml) 0.5 mg IH QIDRT [facility] Stop: 05/23/17 06:59 Last Admin: 03/27/17 13:01 Dose: 0.5 mg Lactobacillus Rhamnosus (Culturelle 15b) 1 each GT DAILY [facility] Stop: 05/24/17 08:59 Last Admin: 03/26/17 09:36 Dose: 1 each Levetiracetam (Keppra) 500 mg GT BID [facility] Stop: 05/23/17 08:59 Last Admin: 03/27/17 09:36 Dose: 500 mg Levothyroxine Sodium (Synthroid) 0.088 mg GT QDAC [facility] Stop: 05/25/17 07:29 Last Admin: 03/27/17 10:02 Dose: 0.088 mg Loperamide HCl (Imodium) 2 mg GT Q6H PRN PRN Reason: Diarrhea Lorazepam (Ativan) 1 mg IV Q4H PRN; Protocol PRN Reason: Seizure Stop: 05/22/17 22:55 Magnesium Hydroxide (Milk Of Magnesia) 30 ml GT HS PRN PRN Reason: Constipation Stop: 05/22/17 22:46 Metoclopramide HCl (Reglan) 5 mg GT Q6H [facility] Stop: 05/22/17 22:59 Last Admin: 03/27/17 11:42 Dose: 5 mg Miscellaneous (Vancomycin Iv Per Pharmacy) 1 ea MC PRN [facility] Stop: 05/22/17 22:59 Miscellaneous (Probiotic Screen) 1 ea MC PRN PRN PRN Reason: PROTOCOL Stop: 05/23/17 10:29 Miscellaneous (Vte Chemical Prophylaxis Screen/ Admission) 1 ea MC PRN PRN PRN Reason: PROTOCOL Stop: 05/23/17 17:14 Miscellaneous (Clinical Monitoring) 1 ea MC PRN PRN PRN Reason: RENAL DOSE ZOSYN Stop: 05/24/17 10:39 Mupirocin (Bactroban Oint) 1 appl NS BID [facility] Stop: 03/30/17 09:01 Last Admin: 03/27/17 09:57 Dose: 1 appl Ondansetron HCl (Zofran) 4 mg IV Q4H PRN PRN Reason: Nausea / Vomiting Stop: 05/22/17 22:55 Last Admin: 03/25/17 22:30 Dose: 4 mg Pantoprazole Sodium (Protonix) 40 mg PO BID [facility] Stop: 05/23/17 08:59 Last Admin: 03/27/17 09:35 Dose: 40 mg Sodium Bicarbonate (Sodium Bicarbonate) 650 mg GT DAILY [facility] PRN Reason: Protocol Stop: 05/23/17 08:59 Last Admin: 03/27/17 09:36 Dose: 650 mg Sodium Phosphate (Fleet Enema) 135 ml RC Q48HR PRN PRN Reason: Constipation Stop: 05/22/17 22:46 General: Alert, No acute distress HEENT: Atraumatic, PERRLA, Mucous membr. moist/pink Neck: Supple, +2 carotid pulse wo bruit, Other (T piece) Cardiovascular: Regular rate, Normal S1, Normal S2 Lungs: Other (harsh BS) Abdomen: Bowel sounds, Soft Extremities: no Edema Neurological: Sensation intact Skin: no Rash Psych/Mental Status: Mood NL - Procedures Procedures: Procedures Procedure Code Date TRANSFUSE NONAUT RED BLOOD CELLS IN PERIPH VEIN, PERC 04220K7 01/20/17 Assessment/Plan - Problem List Patient Problems: All Active Problems ABNORMAL LABORATORY VALUES (Acute) ABNORMAL LABORATORY VALUES (Acute) - Assessment Assessment: REGULO on CKD (nonoliguric) Hyperkalemia Sepsis Severe Sepsis Cx UTI Sacral/ B/L Heel decub ulcers Type 2 DM Ess Htn Resp Failure on T piece - Plan Plan: Lab - Result Diagrams 03/25/17 04:42 03/25/17 04:42 Current Medications Acetaminophen (Tylenol Extra Strength) 500 mg GT Q8HR PRN PRN Reason: Pain (Moderate) Stop: 05/22/17 22:46 Albuterol Sulfate (Albuterol 2.5mg/3ml Neb Ud) 2.5 mg HHN QIDRT [facility] Stop: 05/23/17 06:59 Last Admin: 03/25/17 11:24 Dose: 2.5 mg Ascorbic Acid (Vitamin C) 500 mg GT DAILY [facility] Stop: 05/23/17 08:59 Last Admin: 03/25/17 09:35 Dose: 500 mg Bisacodyl (Dulcolax 10 Mg Supp) 10 mg RC DAILY PRN PRN Reason: Constipation Stop: 05/22/17 22:46 [place] Oil/[place] Balsam/Trypsin (Venelex) 1 appl TP DAILY [facility] Stop: 05/23/17 16:59 Last Admin: 03/25/17 09:35 Dose: 1 appl Chlorhexidine Gluconate (Peridex) 15 ml MM Q12H [facility] Stop: 05/22/17 22:59 Last Admin: 03/25/17 10:39 Dose: 15 ml Epoetin Wei (Epogen) 10,000 units SUBQ MoWeFr@1500 [facility] Stop: 05/24/17 14:59 Guaifenesin (Robitussin) 200 mg PO Q4HR PRN PRN Reason: Cough or Congestion Stop: 05/22/17 22:55 Heparin Sodium (Porcine) (Heparin) 5,000 units SUBQ Q12HR [facility] Stop: 05/23/17 20:59 Last Admin: 03/25/17 09:35 Dose: 5,000 units Dextrose/Sodium Chloride (D5-0.45ns) 1,000 mls @ 125 mls/hr IV .Q8H [facility] Stop: 05/23/17 08:38 Last Admin: 03/25/17 09:35 Dose: 125 mls/hr Vancomycin HCl 1 gm/ Sodium (Chloride) 250 mls @ 165 mls/hr IV Q24H [facility] Stop: 05/24/17 10:59 Last Infusion: 03/25/17 12:10 Dose: Infused Piperacillin Sod/Tazobactam (Sod 2.25 gm/ Sodium Chloride) 50 mls @ 100 mls/hr IV Q6HR [facility] Stop: 05/24/17 11:59 Last Infusion: 03/25/17 12:35 Dose: Infused Insulin Aspart (Novolog) 0 units SUBQ Q6HR [facility] PRN Reason: Protocol Stop: 05/23/17 11:59 Last Admin: 03/25/17 13:30 Dose: 2 unit Ipratropium [place] (Atrovent Neb 0.5mg/2.5ml) 0.5 mg IH QIDRT [facility] Stop: 05/23/17 06:59 Last Admin: 03/25/17 11:38 Dose: 0.5 mg Lactobacillus Rhamnosus (Culturelle 15b) 1 each GT DAILY [facility] Stop: 05/24/17 08:59 Last Admin: 03/25/17 09:34 Dose: 1 each Levetiracetam (Keppra) 500 mg GT BID [facility] Stop: 05/23/17 08:59 Last Admin: 03/25/17 09:35 Dose: 500 mg Levothyroxine Sodium (Synthroid) 0.088 mg GT QDAC [facility] Stop: 05/24/17 13:46 Loperamide HCl (Imodium) 2 mg GT Q6H PRN PRN Reason: Diarrhea Lorazepam (Ativan) 1 mg IV Q4H PRN; Protocol PRN Reason: Seizure Stop: 05/22/17 22:55 Magnesium Hydroxide (Milk Of Magnesia) 30 ml GT HS PRN PRN Reason: Constipation Stop: 05/22/17 22:46 Metoclopramide HCl (Reglan) 5 mg GT Q6H [facility] Stop: 05/22/17 22:59 Last Admin: 03/25/17 10:38 Dose: 5 mg Miscellaneous (Vancomycin Iv Per Pharmacy) 1 ea MC PRN [facility] Stop: 05/22/17 22:59 Miscellaneous (Probiotic Screen) 1 ea MC PRN PRN PRN Reason: PROTOCOL Stop: 05/23/17 10:29 Miscellaneous (Vte Chemical Prophylaxis Screen/ Admission) 1 ea MC PRN PRN PRN Reason: PROTOCOL Stop: 05/23/17 17:14 Miscellaneous (Clinical Monitoring) 1 ea MC PRN PRN PRN Reason: RENAL DOSE ZOSYN Stop: 05/24/17 10:39 Mupirocin (Bactroban Oint) 1 appl NS BID [facility] Stop: 03/30/17 09:01 Ondansetron HCl (Zofran) 4 mg IV Q4H PRN PRN Reason: Nausea / Vomiting Stop: 05/22/17 22:55 Last Admin: 03/24/17 12:52 Dose: 4 mg Pantoprazole Sodium (Protonix) 40 mg PO BID [facility] Stop: 05/23/17 08:59 Last Admin: 03/25/17 09:35 Dose: 40 mg Sodium Bicarbonate (Sodium Bicarbonate) 650 mg GT DAILY [facility] PRN Reason: Protocol Stop: 05/23/17 08:59 Last Admin: 03/25/17 09:35 Dose: 650 mg Sodium Phosphate (Fleet Enema) 135 ml RC Q48HR PRN PRN Reason: Constipation Stop: 05/22/17 22:46 Lab - Result Diagrams 03/27/17 04:35 03/27/17 04:35 Kidney fnc improving w/ hydration Most electrolytes have corrected continue to monitor electrolytes Nutritional Asmnt/Malnutr-PDOC - Dietary Evaluation Malnutrition Findings (Please click <Entered> for more info): Nutritional Asmnt/Malnutrition Start: 03/24/17 16: 51 Text: Status: Complete Freq: Document 03/24/17 16:51 LCHENG (Rec: 03/24/17 16:57 [email or web address] [id number]) Nutritional Asmnt/Malnutrition Patient General Information Nutritional Screening High Risk Consult Diagnosis sepsis, ARF Pertinent Medical Hx/Surgical Hx chronic respiratory failure, DM, chronic renal failure, CHF Subjective Information Consult received for chino < 12 and multiple wounds/ pressure ulvers. Pt seen resting in bed, on vent. TF was off at this time. Per nurse notes, pt had light yeallow vomitting today, TF hold for 4hr. Current Diet Order/ Nutrition Support Novasource Renal 40ml/hr continous Pertinent Medications vitamin C, d5-0.45ns, novolog, culturelle, synthroid, reglan , protonix, piperacillin Pertinent Labs 2/6 Cl 109, BUN 186, Cr 3.4, glucose 140, POC 180-193, a1c 4.6 Nutritional Hx/Data Height 1.75 m Height (Calculated Centimeters) 175.3 Current Weight (lbs) 77.791 kg Weight (Calculated Kilograms) 77.8 Weight (Calculated Grams) 75377.1 [place] Body Weight 160 Body Mass Index (BMI) 25.3 Weight Status Overweight GI Symptoms GI Symptoms Diarrhea Last BM no record Difficult in: None Skin Integrity/Comment: rash Estimated Nutritional Goals BEE in Kcals: Using Current wt Calories/Kcals/Kg 25-30 Kcals Calculated 9761-4081 Protein: Using Current wt Protein g/k-1.2 monitor renal labs Protein Calculated 77-92 Fluid: ml 3923-3513 Nutritional Problem 1. Problem Problem altered nutrition related lab values Etiology hx of chronic renal failure, DM Signs/Symptoms: BUN 186, Cr 3.4, glucose 140 Malnutrition Alert Protein-Calorie Malnutrition N/A Is there a minimum of two criteria No selected? Query Text:Check all the applicable criteria. A minimum of two criteria are recommended for diagnosis of either severe or non-severe malnutrition. Intervention/Recommendation Comments 1. Continue with current TF regimen. It provides 1920kcal, 87g protein, 688ml free water , meeting 100% of nutritional needs 2. Monitor TF rate, tolerance, wt weekly, skin integrity and labs 3. F/U as moderate risk in 3-5 days, 03/27-03/29 Expected Outcomes/Goals Expected Outcomes/Goals 1. Pt to meet at least 75% of nutritional needs via nutrition support with tolerance 2. Wt stability, skin to remain intact, labs to approach WNL.
[2017-03-27] MEDS: Venelex 60gm Tube TP SCH (14:30)
--- NOTE | 2017-03-27 15:30 | Internal Medicine Prog Note ---
Internal Medicine Subjective - Subjective Service Date: 03/27/17 Patient is:: awake, other (nonverbal ) Per staff patient has:: tolerating meds Internal Medicine Objective - Results Result Diagrams: 03/27/17 04:35 03/27/17 04:35 Recent Labs: Laboratory Last Values WBC 9.8 Th/cmm (4.8-10.8) 03/27/17 04:35 RBC 2.60 Mil/cmm (3.80-5.80) L 03/27/17 04:35 Hgb 8.2 gm/dL (12-16) L 03/27/17 04:35 Hct 24.7 % (41.0-60) L 03/27/17 04:35 MCV 95.0 fl (80-99) 03/27/17 04:35 MCH 31.5 pg (27.0-31.0) H 03/27/17 04:35 MCHC Differential 33.2 pg (28.0-36.0) 03/27/17 04:35 RDW 17.4 % (11.5-20.0) 03/27/17 04:35 Plt Count 314 Th/cmm (150-400) 03/27/17 04:35 MPV 9.7 fl 03/27/17 04:35 Neutrophils % 76.6 % (40.0-80.0) 03/27/17 04:35 Lymphocytes % 14.6 % (20.0-50.0) L 03/27/17 04:35 Monocytes % 5.8 % (2.0-10.0) 03/27/17 04:35 Eosinophils % 2.8 % (0.0-5.0) 03/27/17 04:35 Basophils % 0.2 % (0.0-2.0) 03/27/17 04:35 Eos Smear Source URINE 03/24/17 14:40 Eos Smear Total Cells NONE SEEN (NONE SEEN) 03/24/17 14:40 Specimen Source Arterial 03/23/17 15:02 Sample Site Right Radial 03/23/17 15:02 pH 7.44 (7.35-7.45) 03/23/17 15:02 pCO2 39.0 mmHg (35.0-45.0) 03/23/17 15:02 pO2 164.0 mmHg (80.0-100.0) H 03/23/17 15:02 HCO3 26.7 mEq/L (20.0-26.0) H 03/23/17 15:02 Base Excess 2.2 mEq/L (-3.0-3.0) 03/23/17 15:02 O2 Saturation 100.0 % (92.0-100.0) 03/23/17 15:02 Tyrel Test YES 03/23/17 15:02 Vent Rate NA 03/23/17 15:02 Inspired O2 32 03/23/17 15:02 Tidal Volume NA 03/23/17 15:02 PEEP NA 03/23/17 15:02 Pressure (ins/psv/peep) NA 03/23/17 15:02 Critical Value SH 03/23/17 15:02 Sodium 145 mEq/L (136-145) 03/27/17 04:35 Potassium 3.9 mEq/L (3.5-5.1) 03/27/17 04:35 Chloride 116 mEq/L (98-107) H 03/27/17 04:35 Carbon Dioxide 22.7 mEq/L (21.0-31.0) 03/27/17 04:35 Anion Gap 10.2 (7.0-16.0) 03/27/17 04:35 BUN 91 mg/dL (7-25) H* 03/27/17 04:35 Creatinine 1.6 mg/dL (0.7-1.3) H 03/27/17 04:35 Est GFR ( Amer) 56.1 ml/min (>90) 03/27/17 04:35 Est GFR (Non-Af Amer) 46.3 ml/min 03/27/17 04:35 BUN/Creatinine Ratio 56.9 03/27/17 04:35 Glucose 128 mg/dL (70-105) H 03/27/17 04:35 POC Glucose 192 MG/DL (70 - 105) H 03/27/17 11:49 Hemoglobin A1c % 4.6 % (4.0-6.0) 03/24/17 04:00 Whole Bld Lactic Acid 1.57 mmol/L (0.60-1.99) 03/24/17 04:00 Uric Acid 9.1 mg/dL (4.4-7.6) H 03/25/17 04:42 Calcium 8.8 mg/dL (8.6-10.3) 03/27/17 04:35 Phosphorus 4.2 mg/dL (2.5-5.0) 03/25/17 04:42 Magnesium 2.6 mg/dL (1.9-2.7) 03/25/17 04:42 Total Bilirubin 0.2 mg/dL (0.3-1.0) L 03/25/17 04:42 AST 32 U/L (13-39) 03/25/17 04:42 ALT 70 U/L (7-52) H 03/25/17 04:42 Alkaline Phosphatase 71 U/L (34-104) 03/25/17 04:42 Ammonia 69 umol/L (16-53) H 03/24/17 04:00 B-Natriuretic Peptide 909.0 pg/mL (5.0-100.0) H 03/23/17 15:18 Total Protein 7.1 gm/dL (6.0-8.3) 03/25/17 04:42 Albumin 3.0 gm/dL (4.2-5.5) L 03/25/17 04:42 Globulin 4.1 gm/dL 03/25/17 04:42 Albumin/Globulin Ratio 0.7 (1.0-1.8) L 03/25/17 04:42 Prostate Specific Ag 0.2 ng/mL (0.0-4.0) 03/23/17 15:18 Vitamin B12 952 pg/mL (232-1245) 03/24/17 04:00 Folic Acid >20.0 ng/mL (>3.0) 03/24/17 04:00 TSH 8.16 uIU/ml (0.34-5.60) H 03/25/17 04:42 Urine Source RANDOM 03/24/17 14:00 Urine Color YELLOW 03/24/17 14:00 Urine Clarity HAZY (CLEAR) 03/24/17 14:00 Urine pH 6.0 (4.6 - 8.0) 03/24/17 14:00 Ur Specific [place] 1.010 (1.005-1.030) 03/24/17 14:00 Urine Protein 30 mg/dL (NEGATIVE) H 03/24/17 14:00 Urine Glucose (UA) NEGATIVE mg/dL (NEGATIVE) 03/24/17 14:00 Urine Ketones NEGATIVE mg/dL (NEGATIVE) 03/24/17 14:00 Urine Blood TRACE (NEGATIVE) 03/24/17 14:00 Urine Nitrate NEGATIVE (NEGATIVE) 03/24/17 14:00 Urine Bilirubin NEGATIVE (NEGATIVE) 03/24/17 14:00 Urine Urobilinogen 0.2 E.U./dL (0.2 - 1.0) 03/24/17 14:00 Ur Leukocyte Esterase MODERATE (NEGATIVE) H 03/24/17 14:00 Urine RBC 2-5 /hpf (0-5) H 03/24/17 14:00 Urine WBC 25-50 /hpf (0-5) H 03/24/17 14:00 Ur Epithelial Cells NONE SEEN /lpf (FEW) 03/24/17 14:00 Urine Bacteria FEW /hpf (NONE SEEN) 03/24/17 14:00 Ur Random Sodium 33 mmol/L 03/25/17 08:00 Urine Creatinine 33.9 mg/dl (39.0-259.0) L 03/25/17 08:00 Vancomycin Trough 11.5 ug/mL (10-20) 03/27/17 10:10 Blood Type A POSITIVE 03/23/17 15:18 Antibody Screen NEGATIVE 03/23/17 15:18 Crossmatch See Detail 03/23/17 15:18 - Physical Exam Vitals and I&O: Vital Signs Temp 97.8 F 03/27/17 08:00 Pulse 80 03/27/17 13:01 Resp 20 03/27/17 13:01 BP 119/51 03/27/17 11:00 Pulse Ox 100 03/27/17 13:01 Intake & Output 03/26/17 03/27/17 03/27/17 18:59 06:59 18:59 Intake Total 905.00 1520 Output Total 1200 1400 Balance -295.00 120 Weight (lbs) 179 lb 178 lb 1 oz Intake: Intake, IV Amount 425.00 840 D5-0.45NS 1,000 ml @ 100 690 mls/hr IV .Q10H ALEJANDRO Rx#: [id number] D5-0.45NS 1,000 ml @ 125 125 mls/hr IV .Q8H ALEJANDRO Rx#: [id number] Piperacillin Sodium/ 50 150 Tazobact 2.25 gm In Sodium Chloride 0.9% 50 ml @ 100 mls/hr IV Q6HR [facility] Rx#:[id number] Vancomycin HCl 1 gm In 250.00 Sodium Chloride 0.9% 250 ml @ 165 mls/hr IV Q24H [facility] Rx#:[id number] Tube Feeding 480 480 Other 200 Output: Urine 1200 1400 Other: # Bowel Movements 2 0 Stool Characteristics Soft Liquid Active Medications: Current Medications Acetaminophen (Tylenol Extra Strength) 500 mg GT Q8HR PRN PRN Reason: Pain (Moderate) Stop: 05/22/17 22:46 Albuterol Sulfate (Albuterol 2.5mg/3ml Neb Ud) 2.5 mg HHN QIDRT [facility] Stop: 05/23/17 06:59 Last Admin: 03/27/17 13:01 Dose: 2.5 mg Ascorbic Acid (Vitamin C) 500 mg GT DAILY [facility] Stop: 05/23/17 08:59 Last Admin: 03/27/17 09:39 Dose: 500 mg Bisacodyl (Dulcolax 10 Mg Supp) 10 mg RC DAILY PRN PRN Reason: Constipation Stop: 05/22/17 22:46 [place] Oil/[place] Balsam/Trypsin (Venelex) 1 appl TP DAILY [facility] Stop: 05/23/17 16:59 Last Admin: 03/26/17 14:00 Dose: 1 appl Chlorhexidine Gluconate (Peridex) 15 ml MM Q12H [facility] Stop: 05/22/17 22:59 Last Admin: 03/26/17 23:08 Dose: 15 ml Epoetin Wei (Epogen) 10,000 units SUBQ MoWeFr@1500 [facility] Stop: 05/24/17 14:59 Last Admin: 03/25/17 15:20 Dose: 10,000 units Guaifenesin (Robitussin) 200 mg PO Q4HR PRN PRN Reason: Cough or Congestion Stop: 05/22/17 22:55 Heparin Sodium (Porcine) (Heparin) 5,000 units SUBQ Q12HR [facility] Stop: 05/23/17 20:59 Last Admin: 03/27/17 09:36 Dose: 5,000 units Dextrose/Sodium Chloride (D5-0.45ns) 1,000 mls @ 100 mls/hr IV .Q10H [facility] Stop: 05/25/17 13:41 Last Infusion: 03/27/17 06:00 Dose: 100 mls/hr Vancomycin HCl 1.25 gm/ Sodium (Chloride) 250 mls @ 165 mls/hr IV Q24H [facility] Stop: 05/27/17 08:59 Ampicillin Sodium/Sulbactam (Sodium 3 gm/ Sodium Chloride) 100 mls @ 100 mls/ hr IV Q6HR ALEJANDRO Stop: 05/26/17 17:59 Tobramycin Sulfate 120 mg/ (Sodium Chloride) 103 mls @ 100 mls/hr IV Q12H ALEJANDRO Stop: 05/27/17 07:59 Tobramycin Sulfate 120 mg/ (Sodium Chloride) 103 mls @ 100 mls/hr IV ONCE ONE Stop: 03/27/17 16:31 Insulin Aspart (Novolog) 0 units SUBQ Q6HR ALEJANDRO PRN Reason: Protocol Stop: 05/23/17 11:59 Last Admin: 03/27/17 11:51 Dose: Not Given Ipratropium [place] (Atrovent Neb 0.5mg/2.5ml) 0.5 mg IH QIDRT [facility] Stop: 05/23/17 06:59 Last Admin: 03/27/17 13:01 Dose: 0.5 mg Lactobacillus Rhamnosus (Culturelle 15b) 1 each GT DAILY [facility] Stop: 05/24/17 08:59 Last Admin: 03/26/17 09:36 Dose: 1 each Levetiracetam (Keppra) 500 mg GT BID [facility] Stop: 05/23/17 08:59 Last Admin: 03/27/17 09:36 Dose: 500 mg Levothyroxine Sodium (Synthroid) 0.088 mg GT QDAC [facility] Stop: 05/25/17 07:29 Last Admin: 03/27/17 10:02 Dose: 0.088 mg Loperamide HCl (Imodium) 2 mg GT Q6H PRN PRN Reason: Diarrhea Lorazepam (Ativan) 1 mg IV Q4H PRN; Protocol PRN Reason: Seizure Stop: 05/22/17 22:55 Magnesium Hydroxide (Milk Of Magnesia) 30 ml GT HS PRN PRN Reason: Constipation Stop: 05/22/17 22:46 Metoclopramide HCl (Reglan) 5 mg GT Q6H ALEJANDRO Stop: 05/22/17 22:59 Last Admin: 03/27/17 11:42 Dose: 5 mg Miscellaneous (Vancomycin Iv Per Pharmacy) 1 ea MC PRN ALEJANDRO Stop: 05/22/17 22:59 Miscellaneous (Probiotic Screen) 1 ea MC PRN PRN PRN Reason: PROTOCOL Stop: 05/23/17 10:29 Miscellaneous (Vte Chemical Prophylaxis Screen/ Admission) 1 ea MC PRN PRN PRN Reason: PROTOCOL Stop: 05/23/17 17:14 Miscellaneous (Clinical Monitoring) 1 ea MC PRN PRN PRN Reason: RENAL DOSE ZOSYN Stop: 05/24/17 10:39 Miscellaneous (Tobramycin Iv Per Pharmacy) 1 ea MC PRN PRN PRN Reason: PROTOCOL Stop: 05/26/17 15:03 Mupirocin (Bactroban Oint) 1 appl NS BID ALEJANDRO Stop: 03/30/17 09:01 Last Admin: 03/27/17 09:57 Dose: 1 appl Ondansetron HCl (Zofran) 4 mg IV Q4H PRN PRN Reason: Nausea / Vomiting Stop: 05/22/17 22:55 Last Admin: 03/25/17 22:30 Dose: 4 mg Pantoprazole Sodium (Protonix) 40 mg PO BID ALEJANDRO Stop: 05/23/17 08:59 Last Admin: 03/27/17 09:35 Dose: 40 mg Sodium Bicarbonate (Sodium Bicarbonate) 650 mg GT DAILY ALEJANDRO PRN Reason: Protocol Stop: 05/23/17 08:59 Last Admin: 03/27/17 09:36 Dose: 650 mg Sodium Phosphate (Fleet Enema) 135 ml RC Q48HR PRN PRN Reason: Constipation Stop: 05/22/17 22:46 General: weak, obtunded HEENT: NC/AT, PERRLA Neck: Supple Lungs: ronchi Cardiovascular: RRR, Normal S1, Normal S2, without murmur Abdomen: soft, non-tender, non-distended, +GT, positive bowel sound Extremities: excoriation Neurological: unable to follow command - Procedures Procedures: Procedures Procedure Code Date TRANSFUSE NONAUT RED BLOOD CELLS IN PERIPH VEIN, PERC 95672M8 01/20/17 Internal Medicine Assmt/Plan - Assessment Assessment: sepsis acute renal failure mild protein calorie malnutrition hyperkalemia htn cad dyslipidemia acute on chronic respiratory failure tracheostomy status gastrostomy status - Plan Plan: ok to transfer to telemetry continue ivabx ivf for hydration renal follow up await for sputum culture icu monitoring continue current plan of care Nutritional Asmnt/Malnutr-PDOC - Dietary Evaluation Malnutrition Findings (Please click <Entered> for more info): Nutritional Asmnt/Malnutrition Start: 03/24/17 16: 51 Text: Status: Complete Freq: Document 03/24/17 16:51 ARCHANA (Rec: 03/24/17 16:57 LCJOSE MARIAG [id number]) Nutritional Asmnt/Malnutrition Patient General Information Nutritional Screening High Risk Consult Diagnosis sepsis, ARF Pertinent Medical Hx/Surgical Hx chronic respiratory failure, DM, chronic renal failure, CHF Subjective Information Consult received for chino < 12 and multiple wounds/ pressure ulvers. Pt seen resting in bed, on vent. TF was off at this time. Per nurse notes, pt had light yeallow vomitting today, TF hold for 4hr. Current Diet Order/ Nutrition Support Novasource Renal 40ml/hr continous Pertinent Medications vitamin C, d5-0.45ns, novolog, culturelle, synthroid, reglan , protonix, piperacillin Pertinent Labs 2/6 Cl 109, BUN 186, Cr 3.4, glucose 140, POC 180-193, a1c 4.6 Nutritional Hx/Data Height 5 ft 9 in Height (Calculated Centimeters) 175.3 Current Weight (lbs) 171 lb 8 oz Weight (Calculated Kilograms) 77.8 Weight (Calculated Grams) 73335.1 [place] Body Weight 160 Body Mass Index (BMI) 25.3 Weight Status Overweight GI Symptoms GI Symptoms Diarrhea Last BM no record Difficult in: None Skin Integrity/Comment: rash Estimated Nutritional Goals BEE in Kcals: Using Current wt Calories/Kcals/Kg 25-30 Kcals Calculated 5701-5900 Protein: Using Current wt Protein g/k-1.2 monitor renal labs Protein Calculated 77-92 Fluid: ml 6668-2101 Nutritional Problem 1. Problem Problem altered nutrition related lab values Etiology hx of chronic renal failure, DM Signs/Symptoms: BUN 186, Cr 3.4, glucose 140 Malnutrition Alert Protein-Calorie Malnutrition N/A Is there a minimum of two criteria No selected? Query Text:Check all the applicable criteria. A minimum of two criteria are recommended for diagnosis of either severe or non-severe malnutrition. Intervention/Recommendation Comments 1. Continue with current TF regimen. It provides 1920kcal, 87g protein, 688ml free water , meeting 100% of nutritional needs 2. Monitor TF rate, tolerance, wt weekly, skin integrity and labs 3. F/U as moderate risk in 3-5 days, 03/27-03/29 Expected Outcomes/Goals Expected Outcomes/Goals 1. Pt to meet at least 75% of nutritional needs via nutrition support with tolerance 2. Wt stability, skin to remain intact, labs to approach WNL.
[2017-03-27] MEDS: D5-0.45NS 1,000 ML IV SCH ×2 (15:48→23:54)
[2017-03-27] MEDS: Ampicillin Sodium/Sulbactam 3 GM in Sodium Chloride 0.9% 100 ML IV SCH (17:44)
[2017-03-27] MEDS: Epoetin Alfa 20000 Units/mL Vial SUBQ SCH (18:01)
[2017-03-28] MEDS: Ampicillin Sodium/Sulbactam 3 GM in Sodium Chloride 0.9% 100 ML IV SCH ×5 (00:07→23:59)
[2017-03-28 06:04] LABS: % BASOPHILS 0.5 % (0.0-2.0); % LYMPHOCYTES 16.9 % (20.0-50.0); % MONOCYTES 6.1 % (2.0-10.0); % NEUTROPHILS 73.5 % (40.0-80.0); BASOPHILE ABSOLUTE 0.1 Th/cumm (0-0.2); EOSINOPHILE ABSOLUTE 0.4 Th/cmm (0.1-0.4); HEMATOCRIT 27.2 % (41.0-60); LYMPHOCYTE ABSOLUTE 2.1 Th/cmm (1.5-3.0); MEAN CELL VOLUME 94.8 fl (80-99); MEAN CORPUSCULAR HEMOGLOBIN 31.4 pg (27.0-31.0); MEAN CORPUSCULAR HGB CONC 33.1 pg (28.0-36.0); MEAN PLATELET VOLUME 8.6 fl; MONOCYTE ABSOLUTE 0.8 Th/cmm (0.3-1.0); NEUTROPHILE ABSOLUTE 8.9 Th/cmm (1.8-8.0); PLATELET COUNT 370 Th/cmm (150-400); RED BLOOD COUNT 2.87 Mil/cmm (3.80-5.80); RED CELL DISTRIBUTION WIDTH 17.6 % (11.5-20.0)
[2017-03-28 06:13] LABS: WHITE BLOOD COUNT 12.3 Th/cmm (4.8-10.8)
[2017-03-28 06:37] LABS: ALB/GLOB RATIO 0.6 (1.0-1.8); ALBUMIN 2.8 gm/dL (4.2-5.5); ALKALINE PHOSPHATASE 76 U/L (34-104); ANION GAP 13.1 (7.0-16.0); BILIRUBIN,TOTAL 0.3 mg/dL (0.3-1.0); BUN - UREA NITROGEN 65 mg/dL (7-25); CALCIUM SERUM 9.2 mg/dL (8.6-10.3); CARBON DIOXIDE 20.3 mEq/L (21.0-31.0); CHLORIDE 116 mEq/L (98-107); CREATININE - SERUM 1.4 mg/dL (0.7-1.3); GFR AFRICAN-AMERICAN > 60.0 ml/min (>90); GFR NON AFRICAN-AMERICAN 54.1 ml/min; GLUCOSE 163 mg/dL (70-105); MAGNESIUM 1.9 mg/dL (1.9-2.7); POTASSIUM SERUM 3.4 mEq/L (3.5-5.1); SGOT 47 U/L (13-39); SGPT/ALT 73 U/L (7-52); SODIUM SERUM 146 mEq/L (136-145); TOTAL PROTEIN,SERUM 7.4 gm/dL (6.0-8.3)
[2017-03-28] MEDS: INSULIN ASPART, RECOMBINANT 100 UNITS/ML SUBQ SCH ×4 (06:51→18:00)
[2017-03-28] MEDS: Albuterol Nebulizer 2.5mg/3mL HHN SCH ×4 (07:34→19:12)
[2017-03-28] MEDS: Ipratropium Neb 0.5 mg/2.5 mL UD IH SCH ×4 (07:34→19:12)
[2017-03-28] MEDS: Levothyroxine 0.088 Mg Tab GT SCH (07:38)
[2017-03-28] MEDS: Pantoprazole 40 mg EC Tab PO SCH ×2 (08:53→18:06)
[2017-03-28] MEDS: Lactobacillus Rhamnosus GG 15 Billion CFU CAP.SPRINK GT SCH (08:53)
[2017-03-28] MEDS: Acetaminophen 500 MG TAB GT PRN ×2 (08:53→12:21)
[2017-03-28] MEDS: Levetiracetam 500 mg/5mL 5mL UDSyr *for ORAL USE ONLY GT SCH ×2 (08:53→18:05)
[2017-03-28] MEDS: Venelex 60gm Tube TP SCH (09:30)
[2017-03-28] MEDS: Multivitamin w/ Minerals Tab GT SCH (09:30)
[2017-03-28] MEDS: Chlorhexidine Gluconate 0.12% 480mL Bottle MM SCH (12:13)
[2017-03-28] MEDS ORDERED: Potassium Chloride Elixir 20 mEq /15 mL UDC GT ONE (14:04)
--- NOTE | 2017-03-28 14:07 | General Progress Note ---
Subjective - Review of Systems Service Date: 03/28/17 Subjective: more awake, comfortable, on T piece Objective - Results Result Diagrams: 03/28/17 05:51 03/28/17 05:51 Recent Labs: Laboratory Last Values WBC 12.3 Th/cmm (4.8-10.8) H D 03/28/17 05:51 RBC 2.87 Mil/cmm (3.80-5.80) L 03/28/17 05:51 Hgb 9.0 gm/dL (12-16) L 03/28/17 05:51 Hct 27.2 % (41.0-60) L D 03/28/17 05:51 MCV 94.8 fl (80-99) 03/28/17 05:51 MCH 31.4 pg (27.0-31.0) H 03/28/17 05:51 MCHC Differential 33.1 pg (28.0-36.0) 03/28/17 05:51 RDW 17.6 % (11.5-20.0) 03/28/17 05:51 Plt Count 370 Th/cmm (150-400) 03/28/17 05:51 MPV 8.6 fl 03/28/17 05:51 Neutrophils % 73.5 % (40.0-80.0) 03/28/17 05:51 Lymphocytes % 16.9 % (20.0-50.0) L 03/28/17 05:51 Monocytes % 6.1 % (2.0-10.0) 03/28/17 05:51 Eosinophils % 3.0 % (0.0-5.0) 03/28/17 05:51 Basophils % 0.5 % (0.0-2.0) 03/28/17 05:51 Eos Smear Source URINE 03/24/17 14:40 Eos Smear Total Cells NONE SEEN (NONE SEEN) 03/24/17 14:40 Specimen Source Arterial 03/23/17 15:02 Sample Site Right Radial 03/23/17 15:02 pH 7.44 (7.35-7.45) 03/23/17 15:02 pCO2 39.0 mmHg (35.0-45.0) 03/23/17 15:02 pO2 164.0 mmHg (80.0-100.0) H 03/23/17 15:02 HCO3 26.7 mEq/L (20.0-26.0) H 03/23/17 15:02 Base Excess 2.2 mEq/L (-3.0-3.0) 03/23/17 15:02 O2 Saturation 100.0 % (92.0-100.0) 03/23/17 15:02 Tyrel Test YES 03/23/17 15:02 Vent Rate NA 03/23/17 15:02 Inspired O2 32 03/23/17 15:02 Tidal Volume NA 03/23/17 15:02 PEEP NA 03/23/17 15:02 Pressure (ins/psv/peep) NA 03/23/17 15:02 Critical Value SH 03/23/17 15:02 Sodium 146 mEq/L (136-145) H 03/28/17 05:51 Potassium 3.4 mEq/L (3.5-5.1) L 03/28/17 05:51 Chloride 116 mEq/L (98-107) H 03/28/17 05:51 Carbon Dioxide 20.3 mEq/L (21.0-31.0) L 03/28/17 05:51 Anion Gap 13.1 (7.0-16.0) 03/28/17 05:51 BUN 65 mg/dL (7-25) H 03/28/17 05:51 Creatinine 1.4 mg/dL (0.7-1.3) H 03/28/17 05:51 Est GFR ( Amer) > 60.0 ml/min (>90) 03/28/17 05:51 Est GFR (Non-Af Amer) 54.1 ml/min 03/28/17 05:51 BUN/Creatinine Ratio 46.4 03/28/17 05:51 Glucose 163 mg/dL (70-105) H 03/28/17 05:51 POC Glucose 159 MG/DL (70 - 105) H 03/28/17 12:08 Hemoglobin A1c % 4.6 % (4.0-6.0) 03/24/17 04:00 Whole Bld Lactic Acid 1.57 mmol/L (0.60-1.99) 03/24/17 04:00 Uric Acid 9.1 mg/dL (4.4-7.6) H 03/25/17 04:42 Calcium 9.2 mg/dL (8.6-10.3) 03/28/17 05:51 Phosphorus 4.2 mg/dL (2.5-5.0) 03/25/17 04:42 Magnesium 1.9 mg/dL (1.9-2.7) 03/28/17 05:51 Total Bilirubin 0.3 mg/dL (0.3-1.0) 03/28/17 05:51 AST 47 U/L (13-39) H 03/28/17 05:51 ALT 73 U/L (7-52) H 03/28/17 05:51 Alkaline Phosphatase 76 U/L (34-104) 03/28/17 05:51 Ammonia 69 umol/L (16-53) H 03/24/17 04:00 B-Natriuretic Peptide 957.0 pg/mL (5.0-100.0) H 03/28/17 05:51 Total Protein 7.4 gm/dL (6.0-8.3) 03/28/17 05:51 Albumin 2.8 gm/dL (4.2-5.5) L 03/28/17 05:51 Globulin 4.6 gm/dL 03/28/17 05:51 Albumin/Globulin Ratio 0.6 (1.0-1.8) L 03/28/17 05:51 Prostate Specific Ag 0.2 ng/mL (0.0-4.0) 03/23/17 15:18 Vitamin B12 952 pg/mL (232-1245) 03/24/17 04:00 Folic Acid >20.0 ng/mL (>3.0) 03/24/17 04:00 TSH 8.16 uIU/ml (0.34-5.60) H 03/25/17 04:42 Urine Source RANDOM 03/24/17 14:00 Urine Color YELLOW 03/24/17 14:00 Urine Clarity HAZY (CLEAR) 03/24/17 14:00 Urine pH 6.0 (4.6 - 8.0) 03/24/17 14:00 Ur Specific [place] 1.010 (1.005-1.030) 03/24/17 14:00 Urine Protein 30 mg/dL (NEGATIVE) H 03/24/17 14:00 Urine Glucose (UA) NEGATIVE mg/dL (NEGATIVE) 03/24/17 14:00 Urine Ketones NEGATIVE mg/dL (NEGATIVE) 03/24/17 14:00 Urine Blood TRACE (NEGATIVE) 03/24/17 14:00 Urine Nitrate NEGATIVE (NEGATIVE) 03/24/17 14:00 Urine Bilirubin NEGATIVE (NEGATIVE) 03/24/17 14:00 Urine Urobilinogen 0.2 E.U./dL (0.2 - 1.0) 03/24/17 14:00 Ur Leukocyte Esterase MODERATE (NEGATIVE) H 03/24/17 14:00 Urine RBC 2-5 /hpf (0-5) H 03/24/17 14:00 Urine WBC 25-50 /hpf (0-5) H 03/24/17 14:00 Ur Epithelial Cells NONE SEEN /lpf (FEW) 03/24/17 14:00 Urine Bacteria FEW /hpf (NONE SEEN) 03/24/17 14:00 Ur Random Sodium 33 mmol/L 03/25/17 08:00 Urine Creatinine 33.9 mg/dl (39.0-259.0) L 03/25/17 08:00 Vancomycin Trough 11.5 ug/mL (10-20) 03/27/17 10:10 Blood Type A POSITIVE 03/23/17 15:18 Antibody Screen NEGATIVE 03/23/17 15:18 Crossmatch See Detail 03/23/17 15:18 - Physical Exam Vitals and I&O: Vital Signs Temp 101.4 F 03/28/17 13:05 Pulse 84 03/28/17 13:05 Resp 18 03/28/17 13:05 BP 126/66 03/28/17 13:05 Pulse Ox 97 03/28/17 13:05 Intake & Output 03/27/17 03/28/17 03/28/17 18:59 06:59 18:59 Intake Total 790 1110 103 Output Total 1250 250 Balance -460 860 103 Weight (lbs) 80.739 kg 80.739 kg 35.38 kg Intake: Intake, IV Amount 310 1110 103 Ampicillin Sodium/ 300 Sulbactam 3 gm In Sodium Chloride 0.9% 100 ml @ 100 mls/hr IV Q6HR [facility] Rx #:[id number] D5-0.45NS 1,000 ml @ 100 310 810 mls/hr IV .Q10H [facility] Rx#: [id number] Tobramycin Sulfate 120 mg 103 In Sodium Chloride 0.9% 100 ml @ 100 mls/hr IV Q12H [facility] Rx#:[id number] Tube Feeding 480 Output: Urine 1250 250 Other: # Bowel Movements 1 Stool Characteristics Soft Brown Green Active Medications: Current Medications Acetaminophen (Tylenol Extra Strength) 500 mg GT Q8HR PRN PRN Reason: Pain (Moderate) Stop: 05/22/17 22:46 Last Admin: 03/28/17 12:21 Dose: 500 mg Albuterol Sulfate (Albuterol 2.5mg/3ml Neb Ud) 2.5 mg HHN QIDRT [facility] Stop: 05/23/17 06:59 Last Admin: 03/28/17 07:34 Dose: 2.5 mg Ascorbic Acid (Vitamin C) 500 mg GT DAILY [facility] Stop: 05/23/17 08:59 Last Admin: 03/28/17 08:54 Dose: 500 mg Bisacodyl (Dulcolax 10 Mg Supp) 10 mg RC DAILY PRN PRN Reason: Constipation Stop: 05/22/17 22:46 [place] Oil/[place] Balsam/Trypsin (Venelex) 1 appl TP DAILY [facility] Stop: 05/23/17 16:59 Last Admin: 03/28/17 09:30 Dose: 1 appl Chlorhexidine Gluconate (Peridex) 15 ml MM Q12H [facility] Stop: 05/22/17 22:59 Last Admin: 03/28/17 12:13 Dose: 15 ml Epoetin Wei (Epogen) 10,000 units SUBQ MoWeFr@1500 [facility] Stop: 05/24/17 14:59 Last Admin: 03/27/17 18:01 Dose: 10,000 units Guaifenesin (Robitussin) 200 mg PO Q4HR PRN PRN Reason: Cough or Congestion Stop: 05/22/17 22:55 Heparin Sodium (Porcine) (Heparin) 5,000 units SUBQ Q12HR [facility] Stop: 05/23/17 20:59 Last Admin: 03/28/17 08:54 Dose: 5,000 units Vancomycin HCl 1.25 gm/ Sodium (Chloride) 250 mls @ 165 mls/hr IV Q24H [facility] Stop: 05/27/17 08:59 Last Admin: 03/28/17 10:08 Dose: 165 mls/hr Ampicillin Sodium/Sulbactam (Sodium 3 gm/ Sodium Chloride) 100 mls @ 100 mls/ hr IV Q6HR [facility] Stop: 05/26/17 17:59 Last Admin: 03/28/17 12:02 Dose: 100 mls/hr Tobramycin Sulfate 120 mg/ (Sodium Chloride) 103 mls @ 100 mls/hr IV Q12H [facility] Stop: 05/27/17 07:59 Last Infusion: 03/28/17 12:18 Dose: Infused Dextrose (D5w) 1,000 mls @ 60 mls/hr IV .[id number] [facility] Stop: 05/27/17 14:14 Insulin Aspart (Novolog) 0 units SUBQ Q6HR [facility] PRN Reason: Protocol Stop: 05/23/17 11:59 Last Admin: 03/28/17 12:13 Dose: Not Given Ipratropium [place] (Atrovent Neb 0.5mg/2.5ml) 0.5 mg IH QIDRT [facility] Stop: 05/23/17 06:59 Last Admin: 03/28/17 07:34 Dose: 0.5 mg Lactobacillus Rhamnosus (Culturelle 15b) 1 each GT DAILY [facility] Stop: 05/24/17 08:59 Last Admin: 03/28/17 08:53 Dose: 1 each Levetiracetam (Keppra) 500 mg GT BID [facility] Stop: 05/23/17 08:59 Last Admin: 03/28/17 08:53 Dose: 500 mg Levothyroxine Sodium (Synthroid) 0.088 mg GT QDAC [facility] Stop: 05/25/17 07:29 Last Admin: 03/28/17 07:38 Dose: 0.088 mg Loperamide HCl (Imodium) 2 mg GT Q6H PRN PRN Reason: Diarrhea Lorazepam (Ativan) 1 mg IV Q4H PRN; Protocol PRN Reason: Seizure Stop: 05/22/17 22:55 Magnesium Hydroxide (Milk Of Magnesia) 30 ml GT HS PRN PRN Reason: Constipation Stop: 05/22/17 22:46 Metoclopramide HCl (Reglan) 5 mg GT Q6H [facility] Stop: 05/22/17 22:59 Last Admin: 03/28/17 12:03 Dose: 5 mg Miscellaneous (Vancomycin Iv Per Pharmacy) 1 ea MC PRN [facility] Stop: 05/22/17 22:59 Miscellaneous (Probiotic Screen) 1 ea MC PRN PRN PRN Reason: PROTOCOL Stop: 05/23/17 10:29 Miscellaneous (Vte Chemical Prophylaxis Screen/ Admission) 1 ea MC PRN PRN PRN Reason: PROTOCOL Stop: 05/23/17 17:14 Miscellaneous (Clinical Monitoring) 1 ea MC PRN PRN PRN Reason: RENAL DOSE Stop: 05/24/17 10:39 Miscellaneous (Tobramycin Iv Per Pharmacy) 1 ea MC PRN PRN PRN Reason: PROTOCOL Stop: 05/26/17 15:03 Mupirocin (Bactroban Oint) 1 appl NS BID [facility] Stop: 03/30/17 09:01 Last Admin: 03/28/17 08:54 Dose: 1 appl Ondansetron HCl (Zofran) 4 mg IV Q4H PRN PRN Reason: Nausea / Vomiting Stop: 05/22/17 22:55 Last Admin: 03/25/17 22:30 Dose: 4 mg Pantoprazole Sodium (Protonix) 40 mg PO BID [facility] Stop: 05/23/17 08:59 Last Admin: 03/28/17 08:53 Dose: 40 mg Potassium Chloride (Potassium Chloride Elixir) 20 meq GT X1 ONE Stop: 03/28/17 14:05 Sodium Bicarbonate (Sodium Bicarbonate) 650 mg GT DAILY [facility] PRN Reason: Protocol Stop: 05/23/17 08:59 Last Admin: 03/28/17 08:53 Dose: 650 mg Sodium Phosphate (Fleet Enema) 135 ml RC Q48HR PRN PRN Reason: Constipation Stop: 05/22/17 22:46 General: Alert, No acute distress HEENT: Atraumatic, PERRLA, Mucous membr. moist/pink Neck: Supple, +2 carotid pulse wo bruit, Other (T piece) Cardiovascular: Regular rate, Normal S1, Normal S2 Lungs: Other (harsh BS) Abdomen: Bowel sounds, Soft Extremities: no Edema Neurological: Sensation intact Skin: no Rash Psych/Mental Status: Mood NL - Procedures Procedures: Procedures Procedure Code Date TRANSFUSE NONAUT RED BLOOD CELLS IN PERIPH VEIN, PERC 43489Y9 01/20/17 Assessment/Plan - Problem List Patient Problems: All Active Problems ABNORMAL LABORATORY VALUES (Acute) ABNORMAL LABORATORY VALUES (Acute) - Assessment Assessment: REGULO on CKD (nonoliguric) Hyperkalemia Sepsis Severe Sepsis Cx UTI Sacral/ B/L Heel decub ulcers Type 2 DM Ess Htn Resp Failure on T piece - Plan Plan: Lab - Result Diagrams 03/25/17 04:42 03/25/17 04:42 Current Medications Acetaminophen (Tylenol Extra Strength) 500 mg GT Q8HR PRN PRN Reason: Pain (Moderate) Stop: 05/22/17 22:46 Albuterol Sulfate (Albuterol 2.5mg/3ml Neb Ud) 2.5 mg HHN QIDRT [facility] Stop: 05/23/17 06:59 Last Admin: 03/25/17 11:24 Dose: 2.5 mg Ascorbic Acid (Vitamin C) 500 mg GT DAILY [facility] Stop: 05/23/17 08:59 Last Admin: 03/25/17 09:35 Dose: 500 mg Bisacodyl (Dulcolax 10 Mg Supp) 10 mg RC DAILY PRN PRN Reason: Constipation Stop: 05/22/17 22:46 [place] Oil/[place] Balsam/Trypsin (Venelex) 1 appl TP DAILY [facility] Stop: 05/23/17 16:59 Last Admin: 03/25/17 09:35 Dose: 1 appl Chlorhexidine Gluconate (Peridex) 15 ml MM Q12H [facility] Stop: 05/22/17 22:59 Last Admin: 03/25/17 10:39 Dose: 15 ml Epoetin Wei (Epogen) 10,000 units SUBQ MoWeFr@1500 [facility] Stop: 05/24/17 14:59 Guaifenesin (Robitussin) 200 mg PO Q4HR PRN PRN Reason: Cough or Congestion Stop: 05/22/17 22:55 Heparin Sodium (Porcine) (Heparin) 5,000 units SUBQ Q12HR [facility] Stop: 05/23/17 20:59 Last Admin: 03/25/17 09:35 Dose: 5,000 units Dextrose/Sodium Chloride (D5-0.45ns) 1,000 mls @ 125 mls/hr IV .Q8H [facility] Stop: 05/23/17 08:38 Last Admin: 03/25/17 09:35 Dose: 125 mls/hr Vancomycin HCl 1 gm/ Sodium (Chloride) 250 mls @ 165 mls/hr IV Q24H [facility] Stop: 05/24/17 10:59 Last Infusion: 03/25/17 12:10 Dose: Infused Piperacillin Sod/Tazobactam (Sod 2.25 gm/ Sodium Chloride) 50 mls @ 100 mls/hr IV Q6HR [facility] Stop: 05/24/17 11:59 Last Infusion: 03/25/17 12:35 Dose: Infused Insulin Aspart (Novolog) 0 units SUBQ Q6HR [facility] PRN Reason: Protocol Stop: 05/23/17 11:59 Last Admin: 03/25/17 13:30 Dose: 2 unit Ipratropium [place] (Atrovent Neb 0.5mg/2.5ml) 0.5 mg IH QIDRT [facility] Stop: 05/23/17 06:59 Last Admin: 03/25/17 11:38 Dose: 0.5 mg Lactobacillus Rhamnosus (Culturelle 15b) 1 each GT DAILY [facility] Stop: 05/24/17 08:59 Last Admin: 03/25/17 09:34 Dose: 1 each Levetiracetam (Keppra) 500 mg GT BID [facility] Stop: 05/23/17 08:59 Last Admin: 03/25/17 09:35 Dose: 500 mg Levothyroxine Sodium (Synthroid) 0.088 mg GT QDAC [facility] Stop: 05/24/17 13:46 Loperamide HCl (Imodium) 2 mg GT Q6H PRN PRN Reason: Diarrhea Lorazepam (Ativan) 1 mg IV Q4H PRN; Protocol PRN Reason: Seizure Stop: 05/22/17 22:55 Magnesium Hydroxide (Milk Of Magnesia) 30 ml GT HS PRN PRN Reason: Constipation Stop: 05/22/17 22:46 Metoclopramide HCl (Reglan) 5 mg GT Q6H [facility] Stop: 05/22/17 22:59 Last Admin: 03/25/17 10:38 Dose: 5 mg Miscellaneous (Vancomycin Iv Per Pharmacy) 1 ea MC PRN [facility] Stop: 05/22/17 22:59 Miscellaneous (Probiotic Screen) 1 ea MC PRN PRN PRN Reason: PROTOCOL Stop: 05/23/17 10:29 Miscellaneous (Vte Chemical Prophylaxis Screen/ Admission) 1 ea PRN PRN PRN Reason: PROTOCOL Stop: 05/23/17 17:14 Miscellaneous (Clinical Monitoring) 1 ea MC PRN PRN PRN Reason: RENAL DOSE ZOSYN Stop: 05/24/17 10:39 Mupirocin (Bactroban Oint) 1 appl NS BID [facility] Stop: 03/30/17 09:01 Ondansetron HCl (Zofran) 4 mg IV Q4H PRN PRN Reason: Nausea / Vomiting Stop: 05/22/17 22:55 Last Admin: 03/24/17 12:52 Dose: 4 mg Pantoprazole Sodium (Protonix) 40 mg PO BID [facility] Stop: 05/23/17 08:59 Last Admin: 03/25/17 09:35 Dose: 40 mg Sodium Bicarbonate (Sodium Bicarbonate) 650 mg GT DAILY [facility] PRN Reason: Protocol Stop: 05/23/17 08:59 Last Admin: 03/25/17 09:35 Dose: 650 mg Sodium Phosphate (Fleet Enema) 135 ml RC Q48HR PRN PRN Reason: Constipation Stop: 05/22/17 22:46 Lab - Result Diagrams 03/28/17 05:51 03/28/17 05:51 Kidney fnc improving w/ hydration Most electrolytes have corrected continue to monitor electrolytes replace K continue D5W Nutritional Asmnt/Malnutr-PDOC - Dietary Evaluation Malnutrition Findings (Please click <Entered> for more info): Nutritional Asmnt/Malnutrition Start: 03/24/17 16: 51 Text: Status: Complete Freq: Document 03/24/17 16:51 LCHENG (Rec: 03/24/17 16:57 [facility]ENG [facility]) Nutritional Asmnt/Malnutrition Patient General Information Nutritional Screening High Risk Consult Diagnosis sepsis, ARF Pertinent Medical Hx/Surgical Hx chronic respiratory failure, DM, chronic renal failure, CHF Subjective Information Consult received for chino < 12 and multiple wounds/ pressure ulvers. Pt seen resting in bed, on vent. TF was off at this time. Per nurse notes, pt had light yeallow vomitting today, TF hold for 4hr. Current Diet Order/ Nutrition Support Novasource Renal 40ml/hr continous Pertinent Medications vitamin C, d5-0.45ns, novolog, culturelle, synthroid, reglan , protonix, piperacillin Pertinent Labs 2/6 Cl 109, BUN 186, Cr 3.4, glucose 140, POC 180-193, a1c 4.6 Nutritional Hx/Data Height 1.75 m Height (Calculated Centimeters) 175.3 Current Weight (lbs) 77.791 kg Weight (Calculated Kilograms) 77.8 Weight (Calculated Grams) 28979.1 [place] Body Weight 160 Body Mass Index (BMI) 25.3 Weight Status Overweight GI Symptoms GI Symptoms Diarrhea Last BM no record Difficult in: None Skin Integrity/Comment: rash Estimated Nutritional Goals BEE in Kcals: Using Current wt Calories/Kcals/Kg 25-30 Kcals Calculated 5626-4585 Protein: Using Current wt Protein g/k-1.2 monitor renal labs Protein Calculated 77-92 Fluid: ml 1748-3073 Nutritional Problem 1. Problem Problem altered nutrition related lab values Etiology hx of chronic renal failure, DM Signs/Symptoms: BUN 186, Cr 3.4, glucose 140 Malnutrition Alert Protein-Calorie Malnutrition N/A Is there a minimum of two criteria No selected? Query Text:Check all the applicable criteria. A minimum of two criteria are recommended for diagnosis of either severe or non-severe malnutrition. Intervention/Recommendation Comments 1. Continue with current TF regimen. It provides 1920kcal, 87g protein, 688ml free water , meeting 100% of nutritional needs 2. Monitor TF rate, tolerance, wt weekly, skin integrity and labs 3. F/U as moderate risk in 3-5 days, 03/27-03/29 Expected Outcomes/Goals Expected Outcomes/Goals 1. Pt to meet at least 75% of nutritional needs via nutrition support with tolerance 2. Wt stability, skin to remain intact, labs to approach WNL.
[2017-03-28] MEDS: Dextrose 5% 1,000 ML IV SCH (14:54)
--- NOTE | 2017-03-28 15:13 | Discharge Summary ---
DATE OF DISCHARGE: 03/28/2017 CHIEF COMPLAINT: Fever and severe dehydration. FINAL DIAGNOSES: 1. Sepsis. 2. Acute on chronic renal failure. 3. Ulcer. 4. Urinary tract infection. 5. Chronic respiratory failure with trach. 6. Coronary artery disease. 7. Multiple decubitus ulcerations, bedbound. 8. Dementia, status post trach and PEG. BRIEF HISTORY: This is a 66-year-old right-handed male with history of NSAID, dementia, chronic respiratory with trach and PEG, previous pneumonia, admitted from nursing facility secondary to fever and ___. Last BUN and creatinine in excess of 100 and admitted for further management. PHYSICAL EXAMINATION: VITAL SIGNS: Blood pressure 143/87, respiration 18, pulse 90, temperature 99. GENERAL: Elderly male, appears stated age. Bilateral temporal wasting and appears chronically ill. NECK: Supple. No mass. LUNGS: Clear breath sounds, few rhonchi. HEART: Regular rate and rhythm, systolic murmur. ABDOMEN: Soft, globular. EXTREMITIES: Positive excoriations. NEUROLOGIC: Limited. HOSPITAL COURSE: The patient is admitted to the ICU. The patient was referred to Dr. Cervantes for Pulmonary and Dr. Foley, for renal. The patient with aggressive IV hydration. The patient has had moderate organism of the wounds from his decubitus ulcer and grew Pseudomonas and Klebsiella from the sputum. The patient is currently on tobramycin. Urine, the patient had Proteus mirabilis. DISCHARGE INSTRUCTIONS: The patient to be discharged back to [facility] for continued care and treatment. CONDITION ON DISCHARGE: Fair. At this point, the patient to continue with IV antibiotic. DISPOSITION: The patient to be discharged today. JOB# [id number]
[2017-03-29] MEDS: INSULIN ASPART, RECOMBINANT 100 UNITS/ML SUBQ SCH ×3 (00:06→13:00)
[2017-03-29] MEDS: Chlorhexidine Gluconate 0.12% 480mL Bottle MM SCH ×2 (00:07→11:27)
[2017-03-29] MEDS: Ampicillin Sodium/Sulbactam 3 GM in Sodium Chloride 0.9% 100 ML IV SCH ×2 (05:13→12:58)
[2017-03-29] MEDS: Levothyroxine 0.088 Mg Tab GT SCH (06:47)
[2017-03-29] MEDS: Albuterol Nebulizer 2.5mg/3mL HHN SCH ×2 (07:37→11:59)
[2017-03-29] MEDS: Ipratropium Neb 0.5 mg/2.5 mL UD IH SCH ×2 (07:37→11:59)
[2017-03-29 07:43] LABS: BUN - UREA NITROGEN 53 mg/dL (7-25); CARBON DIOXIDE 22.6 mEq/L (21.0-31.0); CHLORIDE 116 mEq/L (98-107); CREATININE - SERUM 1.4 mg/dL (0.7-1.3); GFR AFRICAN-AMERICAN > 60.0 ml/min (>90); GFR NON AFRICAN-AMERICAN 54.1 ml/min; GLUCOSE 134 mg/dL (70-105); MAGNESIUM 1.7 mg/dL (1.9-2.7); POTASSIUM SERUM 3.6 mEq/L (3.5-5.1); SODIUM SERUM 145 mEq/L (136-145)
[2017-03-29] MEDS: Pantoprazole 40 mg EC Tab PO SCH (09:40)
[2017-03-29] MEDS: Lactobacillus Rhamnosus GG 15 Billion CFU CAP.SPRINK GT SCH (09:40)
[2017-03-29] MEDS: Multivitamin w/ Minerals Tab GT SCH (09:40)
[2017-03-29] MEDS: Levetiracetam 500 mg/5mL 5mL UDSyr *for ORAL USE ONLY GT SCH (09:40)
[2017-03-29] MEDS: Dextrose 5% 1,000 ML IV SCH (09:41)
[2017-03-29] MEDS: Venelex 60gm Tube TP SCH (11:27)
--- NOTE | 2017-03-29 12:37 | Internal Medicine Prog Note ---
Internal Medicine Subjective - Subjective Patient seen and examined:: other (addendum for dc summary) Patient is:: awake, other (nonverbal ) Patient Complaints of:: congestion Per staff patient has:: no adverse event, no episodes of fall, tolerating meds Internal Medicine Objective - Results Result Diagrams: 03/28/17 05:51 03/29/17 07:18 Recent Labs: Laboratory Last Values WBC 12.3 Th/cmm (4.8-10.8) H D 03/28/17 05:51 RBC 2.87 Mil/cmm (3.80-5.80) L 03/28/17 05:51 Hgb 9.0 gm/dL (12-16) L 03/28/17 05:51 Hct 27.2 % (41.0-60) L D 03/28/17 05:51 MCV 94.8 fl (80-99) 03/28/17 05:51 MCH 31.4 pg (27.0-31.0) H 03/28/17 05:51 MCHC Differential 33.1 pg (28.0-36.0) 03/28/17 05:51 RDW 17.6 % (11.5-20.0) 03/28/17 05:51 Plt Count 370 Th/cmm (150-400) 03/28/17 05:51 MPV 8.6 fl 03/28/17 05:51 Neutrophils % 73.5 % (40.0-80.0) 03/28/17 05:51 Lymphocytes % 16.9 % (20.0-50.0) L 03/28/17 05:51 Monocytes % 6.1 % (2.0-10.0) 03/28/17 05:51 Eosinophils % 3.0 % (0.0-5.0) 03/28/17 05:51 Basophils % 0.5 % (0.0-2.0) 03/28/17 05:51 Eos Smear Source URINE 03/24/17 14:40 Eos Smear Total Cells NONE SEEN (NONE SEEN) 03/24/17 14:40 Specimen Source Arterial 03/23/17 15:02 Sample Site Right Radial 03/23/17 15:02 pH 7.44 (7.35-7.45) 03/23/17 15:02 pCO2 39.0 mmHg (35.0-45.0) 03/23/17 15:02 pO2 164.0 mmHg (80.0-100.0) H 03/23/17 15:02 HCO3 26.7 mEq/L (20.0-26.0) H 03/23/17 15:02 Base Excess 2.2 mEq/L (-3.0-3.0) 03/23/17 15:02 O2 Saturation 100.0 % (92.0-100.0) 03/23/17 15:02 Tyrel Test YES 03/23/17 15:02 Vent Rate NA 03/23/17 15:02 Inspired O2 32 03/23/17 15:02 Tidal Volume NA 03/23/17 15:02 PEEP NA 03/23/17 15:02 Pressure (ins/psv/peep) NA 03/23/17 15:02 Critical Value SH 03/23/17 15:02 Sodium 145 mEq/L (136-145) 03/29/17 07:18 Potassium 3.6 mEq/L (3.5-5.1) 03/29/17 07:18 Chloride 116 mEq/L (98-107) H 03/29/17 07:18 Carbon Dioxide 22.6 mEq/L (21.0-31.0) 03/29/17 07:18 Anion Gap 10.0 (7.0-16.0) 03/29/17 07:18 BUN 53 mg/dL (7-25) H 03/29/17 07:18 Creatinine 1.4 mg/dL (0.7-1.3) H 03/29/17 07:18 Est GFR ( Amer) > 60.0 ml/min (>90) 03/29/17 07:18 Est GFR (Non-Af Amer) 54.1 ml/min 03/29/17 07:18 BUN/Creatinine Ratio 37.9 03/29/17 07:18 Glucose 134 mg/dL (70-105) H 03/29/17 07:18 POC Glucose 143 MG/DL (70 - 105) H 03/29/17 11:30 Hemoglobin A1c % 4.6 % (4.0-6.0) 03/24/17 04:00 Whole Bld Lactic Acid 1.57 mmol/L (0.60-1.99) 03/24/17 04:00 Uric Acid 9.1 mg/dL (4.4-7.6) H 03/25/17 04:42 Calcium 9.0 mg/dL (8.6-10.3) 03/29/17 07:18 Phosphorus 4.2 mg/dL (2.5-5.0) 03/25/17 04:42 Magnesium 1.7 mg/dL (1.9-2.7) L 03/29/17 07:18 Total Bilirubin 0.3 mg/dL (0.3-1.0) 03/28/17 05:51 AST 47 U/L (13-39) H 03/28/17 05:51 ALT 73 U/L (7-52) H 03/28/17 05:51 Alkaline Phosphatase 76 U/L (34-104) 03/28/17 05:51 Ammonia 69 umol/L (16-53) H 03/24/17 04:00 B-Natriuretic Peptide 957.0 pg/mL (5.0-100.0) H 03/28/17 05:51 Total Protein 7.4 gm/dL (6.0-8.3) 03/28/17 05:51 Albumin 2.8 gm/dL (4.2-5.5) L 03/28/17 05:51 Globulin 4.6 gm/dL 03/28/17 05:51 Albumin/Globulin Ratio 0.6 (1.0-1.8) L 03/28/17 05:51 Prostate Specific Ag 0.2 ng/mL (0.0-4.0) 03/23/17 15:18 Vitamin B12 952 pg/mL (232-1245) 03/24/17 04:00 Folic Acid >20.0 ng/mL (>3.0) 03/24/17 04:00 TSH 8.16 uIU/ml (0.34-5.60) H 03/25/17 04:42 Urine Source RANDOM 03/24/17 14:00 Urine Color YELLOW 03/24/17 14:00 Urine Clarity HAZY (CLEAR) 03/24/17 14:00 Urine pH 6.0 (4.6 - 8.0) 03/24/17 14:00 Ur Specific [place] 1.010 (1.005-1.030) 03/24/17 14:00 Urine Protein 30 mg/dL (NEGATIVE) H 03/24/17 14:00 Urine Glucose (UA) NEGATIVE mg/dL (NEGATIVE) 03/24/17 14:00 Urine Ketones NEGATIVE mg/dL (NEGATIVE) 03/24/17 14:00 Urine Blood TRACE (NEGATIVE) 03/24/17 14:00 Urine Nitrate NEGATIVE (NEGATIVE) 03/24/17 14:00 Urine Bilirubin NEGATIVE (NEGATIVE) 03/24/17 14:00 Urine Urobilinogen 0.2 E.U./dL (0.2 - 1.0) 03/24/17 14:00 Ur Leukocyte Esterase MODERATE (NEGATIVE) H 03/24/17 14:00 Urine RBC 2-5 /hpf (0-5) H 03/24/17 14:00 Urine WBC 25-50 /hpf (0-5) H 03/24/17 14:00 Ur Epithelial Cells NONE SEEN /lpf (FEW) 03/24/17 14:00 Urine Bacteria FEW /hpf (NONE SEEN) 03/24/17 14:00 Ur Random Sodium 33 mmol/L 03/25/17 08:00 Urine Creatinine 33.9 mg/dl (39.0-259.0) L 03/25/17 08:00 Tobramycin Peak 3.5 ug/mL (4.0-10.0) L 03/29/17 09:28 Tobramycin Trough 4.0 ug/mL (0.5-2.0) H* 03/29/17 07:18 Vancomycin Trough 11.5 ug/mL (10-20) 03/27/17 10:10 Blood Type A POSITIVE 03/23/17 15:18 Antibody Screen NEGATIVE 03/23/17 15:18 Crossmatch See Detail 03/23/17 15:18 - Physical Exam Vitals and I&O: Vital Signs Temp 97.9 F 03/29/17 08:00 Pulse 85 03/29/17 12:02 Resp 18 03/29/17 12:02 BP 143/68 03/29/17 08:00 Pulse Ox 98 03/29/17 12:02 Intake & Output 03/28/17 03/29/17 03/29/17 18:59 06:59 18:59 Intake Total 4353 113 3666 Output Total 900 1000 Balance 333 -547 1000 Weight (lbs) 35.38 kg 37.251 kg 35.38 kg Intake: Intake, IV Amount [phone] Ampicillin Sodium/ 100 200 Sulbactam 3 gm In Sodium Chloride 0.9% 100 ml @ 100 mls/hr IV Q6HR [facility] Rx #:[id number] Dextrose 5% 1,000 ml @ 60 1000 mls/hr IV .[id number] [facility] Rx#:[id number] Tobramycin Sulfate 120 mg 103 103 In Sodium Chloride 0.9% 100 ml @ 100 mls/hr IV Q12H [facility] Rx#:[id number] Vancomycin HCl 1.25 gm In 250 Sodium Chloride 0.9% 250 ml @ 165 mls/hr IV Q24H [facility] Rx#:[id number] Tube Feeding 480 Other 300 150 Output: Urine 900 1000 Other: # Bowel Movements 0 Active Medications: Current Medications Acetaminophen (Tylenol Extra Strength) 500 mg GT Q8HR PRN PRN Reason: Pain (Moderate) Stop: 05/22/17 22:46 Last Admin: 03/28/17 12:21 Dose: 500 mg Albuterol Sulfate (Albuterol 2.5mg/3ml Neb Ud) 2.5 mg HHN QIDRT [facility] Stop: 05/23/17 06:59 Last Admin: 03/29/17 11:59 Dose: 2.5 mg Ascorbic Acid (Vitamin C) 500 mg GT DAILY [facility] Stop: 05/23/17 08:59 Last Admin: 03/29/17 09:42 Dose: 500 mg Bisacodyl (Dulcolax 10 Mg Supp) 10 mg RC DAILY PRN PRN Reason: Constipation Stop: 05/22/17 22:46 [place] Oil/Japanese Balsam/Trypsin (Venelex) 1 appl TP DAILY [facility] Stop: 05/23/17 16:59 Last Admin: 03/29/17 11:27 Dose: 1 appl Chlorhexidine Gluconate (Peridex) 15 ml MM Q12H [facility] Stop: 05/22/17 22:59 Last Admin: 03/29/17 11:27 Dose: 15 ml Epoetin Wei (Epogen) 10,000 units SUBQ MoWeFr@1500 [facility] Stop: 05/24/17 14:59 Last Admin: 03/27/17 18:01 Dose: 10,000 units Guaifenesin (Robitussin) 200 mg PO Q4HR PRN PRN Reason: Cough or Congestion Stop: 05/22/17 22:55 Heparin Sodium (Porcine) (Heparin) 5,000 units SUBQ Q12HR [facility] Stop: 05/23/17 20:59 Last Admin: 03/29/17 09:41 Dose: 5,000 units Vancomycin HCl 1.25 gm/ Sodium (Chloride) 250 mls @ 165 mls/hr IV Q24H [facility] Stop: 05/27/17 08:59 Last Admin: 03/29/17 10:00 Dose: 165 mls/hr Ampicillin Sodium/Sulbactam (Sodium 3 gm/ Sodium Chloride) 100 mls @ 100 mls/ hr IV Q6HR [facility] Stop: 05/26/17 17:59 Last Admin: 03/29/17 05:13 Dose: 100 mls/hr Tobramycin Sulfate 120 mg/ (Sodium Chloride) 103 mls @ 100 mls/hr IV Q12H [facility] Stop: 05/27/17 07:59 Last Admin: 03/29/17 09:42 Dose: 100 mls/hr Dextrose (D5w) 1,000 mls @ 60 mls/hr IV .[id number] [facility] Stop: 05/27/17 14:14 Last Admin: 03/29/17 09:41 Dose: 60 mls/hr Insulin Aspart (Novolog) 0 units SUBQ Q6HR [facility] PRN Reason: Protocol Stop: 05/23/17 11:59 Last Admin: 03/29/17 05:23 Dose: Not Given Ipratropium [place] (Atrovent Neb 0.5mg/2.5ml) 0.5 mg IH QIDRT [facility] Stop: 05/23/17 06:59 Last Admin: 03/29/17 11:59 Dose: 0.5 mg Lactobacillus Rhamnosus (Culturelle 15b) 1 each GT DAILY [facility] Stop: 05/24/17 08:59 Last Admin: 03/29/17 09:40 Dose: 1 each Levetiracetam (Keppra) 500 mg GT BID [facility] Stop: 05/23/17 08:59 Last Admin: 03/29/17 09:40 Dose: 500 mg Levothyroxine Sodium (Synthroid) 0.088 mg GT QDAC [facility] Stop: 05/25/17 07:29 Last Admin: 03/29/17 06:47 Dose: 0.088 mg Loperamide HCl (Imodium) 2 mg GT Q6H PRN PRN Reason: Diarrhea Lorazepam (Ativan) 1 mg IV Q4H PRN; Protocol PRN Reason: Seizure Stop: 05/22/17 22:55 Magnesium Hydroxide (Milk Of Magnesia) 30 ml GT HS PRN PRN Reason: Constipation Stop: 05/22/17 22:46 Metoclopramide HCl (Reglan) 5 mg GT Q6H [facility] Stop: 05/22/17 22:59 Last Admin: 03/29/17 11:27 Dose: 5 mg Miscellaneous (Vancomycin Iv Per Pharmacy) 1 ea PRN [facility]LEJANDR[facility] Stop: 05/22/17 22:59 Miscellaneous (Probiotic Screen) 1 ea PRN PRN PRN Reason: PROTOCOL Stop: 05/23/17 10:29 Miscellaneous (Vte Chemical Prophylaxis Screen/ Admission) 1 ea PRN PRN PRN Reason: PROTOCOL Stop: 05/23/17 17:14 Miscellaneous (Clinical Monitoring) 1 ea PRN PRN PRN Reason: RENAL DOSE Stop: 05/24/17 10:39 Miscellaneous (Tobramycin Iv Per Pharmacy) 1 ea PRN PRN PRN Reason: PROTOCOL Stop: 05/26/17 15:03 Mupirocin (Bactroban Oint) 1 appl NS BID [facility] Stop: 03/30/17 09:01 Last Admin: 03/29/17 09:42 Dose: 1 appl Ondansetron HCl (Zofran) 4 mg IV Q4H PRN PRN Reason: Nausea / Vomiting Stop: 05/22/17 22:55 Last Admin: 03/25/17 22:30 Dose: 4 mg Pantoprazole Sodium (Protonix) 40 mg PO BID ALEJANDRO Stop: 05/23/17 08:59 Last Admin: 03/29/17 09:40 Dose: 40 mg Sodium Bicarbonate (Sodium Bicarbonate) 650 mg GT DAILY [facility]LEJANDRO PRN Reason: Protocol Stop: 05/23/17 08:59 Last Admin: 03/29/17 09:40 Dose: 650 mg Sodium Phosphate (Fleet Enema) 135 ml RC Q48HR PRN PRN Reason: Constipation Stop: 05/22/17 22:46 General: weak, obtunded HEENT: NC/AT, PERRLA Neck: Supple Lungs: congested, rales, ronchi Cardiovascular: RRR, Normal S1, Normal S2, without murmur Abdomen: soft, non-tender, non-distended, +GT, positive bowel sound Extremities: excoriation Neurological: unable to follow command - Procedures Procedures: Procedures Procedure Code Date TRANSFUSE NONAUT RED BLOOD CELLS IN PERIPH VEIN, PERC 23417G7 01/20/17 Internal Medicine Assmt/Plan - Assessment Assessment: for dc to [facility] no transportation with rt can be arranged yesterday pt to go today - Plan Plan: dc pls see dc summary Nutritional Asmnt/Malnutr-PDOC - Dietary Evaluation Malnutrition Findings (Please click <Entered> for more info): Nutritional Asmnt/Malnutrition Start: 03/24/17 16: 51 Text: Status: Complete Freq: Document 03/24/17 16:51 ARCHANA (Rec: 03/24/17 16:57 ARCHANA [id number]) Nutritional Asmnt/Malnutrition Patient General Information Nutritional Screening High Risk Consult Diagnosis sepsis, ARF Pertinent Medical Hx/Surgical Hx chronic respiratory failure, DM, chronic renal failure, CHF Subjective Information Consult received for chino < 12 and multiple wounds/ pressure ulvers. Pt seen resting in bed, on vent. TF was off at this time. Per nurse notes, pt had light yeallow vomitting today, TF hold for 4hr. Current Diet Order/ Nutrition Support Novasource Renal 40ml/hr continous Pertinent Medications vitamin C, d5-0.45ns, novolog, culturelle, synthroid, reglan , protonix, piperacillin Pertinent Labs 2/6 Cl 109, BUN 186, Cr 3.4, glucose 140, POC 180-193, a1c 4.6 Nutritional Hx/Data Height 1.75 m Height (Calculated Centimeters) 175.3 Current Weight (lbs) 77.791 kg Weight (Calculated Kilograms) 77.8 Weight (Calculated Grams) 15131.1 [place] Body Weight 160 Body Mass Index (BMI) 25.3 Weight Status Overweight GI Symptoms GI Symptoms Diarrhea Last BM no record Difficult in: None Skin Integrity/Comment: rash Estimated Nutritional Goals BEE in Kcals: Using Current wt Calories/Kcals/Kg 25-30 Kcals Calculated 9489-8954 Protein: Using Current wt Protein g/k-1.2 monitor renal labs Protein Calculated 77-92 Fluid: ml 9513-9345 Nutritional Problem 1. Problem Problem altered nutrition related lab values Etiology hx of chronic renal failure, DM Signs/Symptoms: BUN 186, Cr 3.4, glucose 140 Malnutrition Alert Protein-Calorie Malnutrition N/A Is there a minimum of two criteria No selected? Query Text:Check all the applicable criteria. A minimum of two criteria are recommended for diagnosis of either severe or non-severe malnutrition. Intervention/Recommendation Comments 1. Continue with current TF regimen. It provides 1920kcal, 87g protein, 688ml free water , meeting 100% of nutritional needs 2. Monitor TF rate, tolerance, wt weekly, skin integrity and labs 3. F/U as moderate risk in 3-5 days, 03/27-03/29 Expected Outcomes/Goals Expected Outcomes/Goals 1. Pt to meet at least 75% of nutritional needs via nutrition support with tolerance 2. Wt stability, skin to remain intact, labs to approach WNL.
--- NOTE | 2017-03-29 15:54 | General Progress Note ---
Subjective - Review of Systems Service Date: 03/29/17 Subjective: more awake, comfortable, on T piece Objective - Results Result Diagrams: 03/28/17 05:51 03/29/17 07:18 Recent Labs: Laboratory Last Values WBC 12.3 Th/cmm (4.8-10.8) H D 03/28/17 05:51 RBC 2.87 Mil/cmm (3.80-5.80) L 03/28/17 05:51 Hgb 9.0 gm/dL (12-16) L 03/28/17 05:51 Hct 27.2 % (41.0-60) L D 03/28/17 05:51 MCV 94.8 fl (80-99) 03/28/17 05:51 MCH 31.4 pg (27.0-31.0) H 03/28/17 05:51 MCHC Differential 33.1 pg (28.0-36.0) 03/28/17 05:51 RDW 17.6 % (11.5-20.0) 03/28/17 05:51 Plt Count 370 Th/cmm (150-400) 03/28/17 05:51 MPV 8.6 fl 03/28/17 05:51 Neutrophils % 73.5 % (40.0-80.0) 03/28/17 05:51 Lymphocytes % 16.9 % (20.0-50.0) L 03/28/17 05:51 Monocytes % 6.1 % (2.0-10.0) 03/28/17 05:51 Eosinophils % 3.0 % (0.0-5.0) 03/28/17 05:51 Basophils % 0.5 % (0.0-2.0) 03/28/17 05:51 Eos Smear Source URINE 03/24/17 14:40 Eos Smear Total Cells NONE SEEN (NONE SEEN) 03/24/17 14:40 Specimen Source Arterial 03/23/17 15:02 Sample Site Right Radial 03/23/17 15:02 pH 7.44 (7.35-7.45) 03/23/17 15:02 pCO2 39.0 mmHg (35.0-45.0) 03/23/17 15:02 pO2 164.0 mmHg (80.0-100.0) H 03/23/17 15:02 HCO3 26.7 mEq/L (20.0-26.0) H 03/23/17 15:02 Base Excess 2.2 mEq/L (-3.0-3.0) 03/23/17 15:02 O2 Saturation 100.0 % (92.0-100.0) 03/23/17 15:02 Tyrel Test YES 03/23/17 15:02 Vent Rate NA 03/23/17 15:02 Inspired O2 32 03/23/17 15:02 Tidal Volume NA 03/23/17 15:02 PEEP NA 03/23/17 15:02 Pressure (ins/psv/peep) NA 03/23/17 15:02 Critical Value SH 03/23/17 15:02 Sodium 145 mEq/L (136-145) 03/29/17 07:18 Potassium 3.6 mEq/L (3.5-5.1) 03/29/17 07:18 Chloride 116 mEq/L (98-107) H 03/29/17 07:18 Carbon Dioxide 22.6 mEq/L (21.0-31.0) 03/29/17 07:18 Anion Gap 10.0 (7.0-16.0) 03/29/17 07:18 BUN 53 mg/dL (7-25) H 03/29/17 07:18 Creatinine 1.4 mg/dL (0.7-1.3) H 03/29/17 07:18 Est GFR ( Amer) > 60.0 ml/min (>90) 03/29/17 07:18 Est GFR (Non-Af Amer) 54.1 ml/min 03/29/17 07:18 BUN/Creatinine Ratio 37.9 03/29/17 07:18 Glucose 134 mg/dL (70-105) H 03/29/17 07:18 POC Glucose 143 MG/DL (70 - 105) H 03/29/17 11:30 Hemoglobin A1c % 4.6 % (4.0-6.0) 03/24/17 04:00 Whole Bld Lactic Acid 1.57 mmol/L (0.60-1.99) 03/24/17 04:00 Uric Acid 9.1 mg/dL (4.4-7.6) H 03/25/17 04:42 Calcium 9.0 mg/dL (8.6-10.3) 03/29/17 07:18 Phosphorus 4.2 mg/dL (2.5-5.0) 03/25/17 04:42 Magnesium 1.7 mg/dL (1.9-2.7) L 03/29/17 07:18 Total Bilirubin 0.3 mg/dL (0.3-1.0) 03/28/17 05:51 AST 47 U/L (13-39) H 03/28/17 05:51 ALT 73 U/L (7-52) H 03/28/17 05:51 Alkaline Phosphatase 76 U/L (34-104) 03/28/17 05:51 Ammonia 69 umol/L (16-53) H 03/24/17 04:00 B-Natriuretic Peptide 957.0 pg/mL (5.0-100.0) H 03/28/17 05:51 Total Protein 7.4 gm/dL (6.0-8.3) 03/28/17 05:51 Albumin 2.8 gm/dL (4.2-5.5) L 03/28/17 05:51 Globulin 4.6 gm/dL 03/28/17 05:51 Albumin/Globulin Ratio 0.6 (1.0-1.8) L 03/28/17 05:51 Prostate Specific Ag 0.2 ng/mL (0.0-4.0) 03/23/17 15:18 Vitamin B12 952 pg/mL (232-1245) 03/24/17 04:00 Folic Acid >20.0 ng/mL (>3.0) 03/24/17 04:00 TSH 8.16 uIU/ml (0.34-5.60) H 03/25/17 04:42 Urine Source RANDOM 03/24/17 14:00 Urine Color YELLOW 03/24/17 14:00 Urine Clarity HAZY (CLEAR) 03/24/17 14:00 Urine pH 6.0 (4.6 - 8.0) 03/24/17 14:00 Ur Specific [place] 1.010 (1.005-1.030) 03/24/17 14:00 Urine Protein 30 mg/dL (NEGATIVE) H 03/24/17 14:00 Urine Glucose (UA) NEGATIVE mg/dL (NEGATIVE) 03/24/17 14:00 Urine Ketones NEGATIVE mg/dL (NEGATIVE) 03/24/17 14:00 Urine Blood TRACE (NEGATIVE) 03/24/17 14:00 Urine Nitrate NEGATIVE (NEGATIVE) 03/24/17 14:00 Urine Bilirubin NEGATIVE (NEGATIVE) 03/24/17 14:00 Urine Urobilinogen 0.2 E.U./dL (0.2 - 1.0) 03/24/17 14:00 Ur Leukocyte Esterase MODERATE (NEGATIVE) H 03/24/17 14:00 Urine RBC 2-5 /hpf (0-5) H 03/24/17 14:00 Urine WBC 25-50 /hpf (0-5) H 03/24/17 14:00 Ur Epithelial Cells NONE SEEN /lpf (FEW) 03/24/17 14:00 Urine Bacteria FEW /hpf (NONE SEEN) 03/24/17 14:00 Ur Random Sodium 33 mmol/L 03/25/17 08:00 Urine Creatinine 33.9 mg/dl (39.0-259.0) L 03/25/17 08:00 Tobramycin Peak 3.5 ug/mL (4.0-10.0) L 03/29/17 09:28 Tobramycin Trough 4.0 ug/mL (0.5-2.0) H* 03/29/17 07:18 Vancomycin Trough 11.5 ug/mL (10-20) 03/27/17 10:10 Blood Type A POSITIVE 03/23/17 15:18 Antibody Screen NEGATIVE 03/23/17 15:18 Crossmatch See Detail 03/23/17 15:18 - Physical Exam Vitals and I&O: Vital Signs Temp 97.9 F 03/29/17 12:00 Pulse 85 03/29/17 12:02 Resp 18 03/29/17 12:02 BP 143/68 03/29/17 12:00 Pulse Ox 98 03/29/17 12:02 Intake & Output 03/28/17 03/29/17 03/29/17 18:59 06:59 18:59 Intake Total 7010 209 9835 Output Total 900 1000 Balance 333 -447 1103 Weight (lbs) 35.38 kg 37.251 kg 35.38 kg Intake: Intake, IV Amount 327 095 2152 Ampicillin Sodium/ 100 300 Sulbactam 3 gm In Sodium Chloride 0.9% 100 ml @ 100 mls/hr IV Q6HR [facility] Rx #:[id number] Dextrose 5% 1,000 ml @ 60 1000 mls/hr IV .[id number] [facility] Rx#:[id number] Tobramycin Sulfate 120 mg 103 103 103 In Sodium Chloride 0.9% 100 ml @ 100 mls/hr IV Q12H [facility] Rx#:[id number] Vancomycin HCl 1.25 gm In 250 Sodium Chloride 0.9% 250 ml @ 165 mls/hr IV Q24H [facility] Rx#:[id number] Tube Feeding 480 Other 300 150 Output: Urine 900 1000 Other: # Bowel Movements 0 Active Medications: Current Medications Acetaminophen (Tylenol Extra Strength) 500 mg GT Q8HR PRN PRN Reason: Pain (Moderate) Stop: 05/22/17 22:46 Last Admin: 03/28/17 12:21 Dose: 500 mg Albuterol Sulfate (Albuterol 2.5mg/3ml Neb Ud) 2.5 mg HHN QIDRT [facility] Stop: 05/23/17 06:59 Last Admin: 03/29/17 11:59 Dose: 2.5 mg Ascorbic Acid (Vitamin C) 500 mg GT DAILY [facility] Stop: 05/23/17 08:59 Last Admin: 03/29/17 09:42 Dose: 500 mg Bisacodyl (Dulcolax 10 Mg Supp) 10 mg RC DAILY PRN PRN Reason: Constipation Stop: 05/22/17 22:46 [place] Oil/[place] Balsam/Trypsin (Venelex) 1 appl TP DAILY [facility] Stop: 05/23/17 16:59 Last Admin: 03/29/17 11:27 Dose: 1 appl Chlorhexidine Gluconate (Peridex) 15 ml MM Q12H [facility] Stop: 05/22/17 22:59 Last Admin: 03/29/17 11:27 Dose: 15 ml Epoetin Wei (Epogen) 10,000 units SUBQ MoWeFr@1500 [facility] Stop: 05/24/17 14:59 Last Admin: 03/27/17 18:01 Dose: 10,000 units Guaifenesin (Robitussin) 200 mg PO Q4HR PRN PRN Reason: Cough or Congestion Stop: 05/22/17 22:55 Heparin Sodium (Porcine) (Heparin) 5,000 units SUBQ Q12HR [facility] Stop: 05/23/17 20:59 Last Admin: 03/29/17 09:41 Dose: 5,000 units Vancomycin HCl 1.25 gm/ Sodium (Chloride) 250 mls @ 165 mls/hr IV Q24H ALEJANDRO Stop: 05/27/17 08:59 Last Admin: 03/29/17 10:00 Dose: 165 mls/hr Ampicillin Sodium/Sulbactam (Sodium 3 gm/ Sodium Chloride) 100 mls @ 100 mls/ hr IV Q6HR ALEJANDRO Stop: 05/26/17 17:59 Last Admin: 03/29/17 12:58 Dose: 100 mls/hr Tobramycin Sulfate 120 mg/ (Sodium Chloride) 103 mls @ 100 mls/hr IV Q12H ALEJANDRO Stop: 05/27/17 07:59 Last Infusion: 03/29/17 10:45 Dose: Infused Dextrose (D5w) 1,000 mls @ 60 mls/hr IV .[id number] ALEJANDRO Stop: 05/27/17 14:14 Last Admin: 03/29/17 09:41 Dose: 60 mls/hr Insulin Aspart (Novolog) 0 units SUBQ Q6HR ALEJANDRO PRN Reason: Protocol Stop: 05/23/17 11:59 Last Admin: 03/29/17 13:00 Dose: Not Given Ipratropium [place] (Atrovent Neb 0.5mg/2.5ml) 0.5 mg IH QIDRT [facility] Stop: 05/23/17 06:59 Last Admin: 03/29/17 11:59 Dose: 0.5 mg Lactobacillus Rhamnosus (Culturelle 15b) 1 each GT DAILY ALEJANDRO Stop: 05/24/17 08:59 Last Admin: 03/29/17 09:40 Dose: 1 each Levetiracetam (Keppra) 500 mg GT BID ALEJANDRO Stop: 05/23/17 08:59 Last Admin: 03/29/17 09:40 Dose: 500 mg Levothyroxine Sodium (Synthroid) 0.088 mg GT QDAC [facility] Stop: 05/25/17 07:29 Last Admin: 03/29/17 06:47 Dose: 0.088 mg Loperamide HCl (Imodium) 2 mg GT Q6H PRN PRN Reason: Diarrhea Lorazepam (Ativan) 1 mg IV Q4H PRN; Protocol PRN Reason: Seizure Stop: 05/22/17 22:55 Magnesium Hydroxide (Milk Of Magnesia) 30 ml GT HS PRN PRN Reason: Constipation Stop: 05/22/17 22:46 Metoclopramide HCl (Reglan) 5 mg GT Q6H ALEJANDRO Stop: 05/22/17 22:59 Last Admin: 03/29/17 11:27 Dose: 5 mg Miscellaneous (Vancomycin Iv Per Pharmacy) 1 ea PRN ALEJANDRO Stop: 05/22/17 22:59 Miscellaneous (Probiotic Screen) 1 ea PRN PRN PRN Reason: PROTOCOL Stop: 05/23/17 10:29 Miscellaneous (Vte Chemical Prophylaxis Screen/ Admission) 1 ea PRN PRN PRN Reason: PROTOCOL Stop: 05/23/17 17:14 Miscellaneous (Clinical Monitoring) 1 ea PRN PRN PRN Reason: RENAL DOSE Stop: 05/24/17 10:39 Miscellaneous (Tobramycin Iv Per Pharmacy) 1 ea PRN PRN PRN Reason: PROTOCOL Stop: 05/26/17 15:03 Mupirocin (Bactroban Oint) 1 appl NS BID ALEJANDRO Stop: 03/30/17 09:01 Last Admin: 03/29/17 09:42 Dose: 1 appl Ondansetron HCl (Zofran) 4 mg IV Q4H PRN PRN Reason: Nausea / Vomiting Stop: 05/22/17 22:55 Last Admin: 03/25/17 22:30 Dose: 4 mg Pantoprazole Sodium (Protonix) 40 mg PO BID ALEJANDRO Stop: 05/23/17 08:59 Last Admin: 03/29/17 09:40 Dose: 40 mg Sodium Bicarbonate (Sodium Bicarbonate) 650 mg GT DAILY ALEJANDRO PRN Reason: Protocol Stop: 05/23/17 08:59 Last Admin: 03/29/17 09:40 Dose: 650 mg Sodium Phosphate (Fleet Enema) 135 ml RC Q48HR PRN PRN Reason: Constipation Stop: 05/22/17 22:46 General: Alert, No acute distress HEENT: Atraumatic, PERRLA, Mucous membr. moist/pink Neck: Supple, +2 carotid pulse wo bruit, Other (T piece) Cardiovascular: Regular rate, Normal S1, Normal S2 Lungs: Other (harsh BS) Abdomen: Bowel sounds, Soft Extremities: no Edema Neurological: Sensation intact Skin: no Rash Psych/Mental Status: Mood NL - Procedures Procedures: Procedures Procedure Code Date TRANSFUSE NONAUT RED BLOOD CELLS IN PERIPH VEIN, PERC 71889K6 01/20/17 Assessment/Plan - Problem List Patient Problems: All Active Problems ABNORMAL LABORATORY VALUES (Acute) ABNORMAL LABORATORY VALUES (Acute) - Assessment Assessment: REGULO on CKD (nonoliguric) Hyperkalemia Sepsis Severe Sepsis Cx UTI Sacral/ B/L Heel decub ulcers Type 2 DM Ess Htn Resp Failure on T piece - Plan Plan: Lab - Result Diagrams 03/25/17 04:42 03/25/17 04:42 Current Medications Acetaminophen (Tylenol Extra Strength) 500 mg GT Q8HR PRN PRN Reason: Pain (Moderate) Stop: 05/22/17 22:46 Albuterol Sulfate (Albuterol 2.5mg/3ml Neb Ud) 2.5 mg HHN QIDRT [facility] Stop: 05/23/17 06:59 Last Admin: 03/25/17 11:24 Dose: 2.5 mg Ascorbic Acid (Vitamin C) 500 mg GT DAILY [facility] Stop: 05/23/17 08:59 Last Admin: 03/25/17 09:35 Dose: 500 mg Bisacodyl (Dulcolax 10 Mg Supp) 10 mg RC DAILY PRN PRN Reason: Constipation Stop: 05/22/17 22:46 [place] Balsam/Trypsin (Venelex) 1 appl TP DAILY [facility] Stop: 05/23/17 16:59 Last Admin: 03/25/17 09:35 Dose: 1 appl Chlorhexidine Gluconate (Peridex) 15 ml MM Q12H [facility] Stop: 05/22/17 22:59 Last Admin: 03/25/17 10:39 Dose: 15 ml Epoetin Wei (Epogen) 10,000 units SUBQ MoWeFr@1500 [facility] Stop: 05/24/17 14:59 Guaifenesin (Robitussin) 200 mg PO Q4HR PRN PRN Reason: Cough or Congestion Stop: 05/22/17 22:55 Heparin Sodium (Porcine) (Heparin) 5,000 units SUBQ Q12HR ALEJANDRO Stop: 05/23/17 20:59 Last Admin: 03/25/17 09:35 Dose: 5,000 units Dextrose/Sodium Chloride (D5-0.45ns) 1,000 mls @ 125 mls/hr IV .Q8H ALEJANDRO Stop: 05/23/17 08:38 Last Admin: 03/25/17 09:35 Dose: 125 mls/hr Vancomycin HCl 1 gm/ Sodium (Chloride) 250 mls @ 165 mls/hr IV Q24H ALEJANDRO Stop: 05/24/17 10:59 Last Infusion: 03/25/17 12:10 Dose: Infused Piperacillin Sod/Tazobactam (Sod 2.25 gm/ Sodium Chloride) 50 mls @ 100 mls/hr IV Q6HR ALEJANDRO Stop: 05/24/17 11:59 Last Infusion: 03/25/17 12:35 Dose: Infused Insulin Aspart (Novolog) 0 units SUBQ Q6HR ALEJANDRO PRN Reason: Protocol Stop: 05/23/17 11:59 Last Admin: 03/25/17 13:30 Dose: 2 unit Ipratropium [place] (Atrovent Neb 0.5mg/2.5ml) 0.5 mg IH QIDRT [facility] Stop: 05/23/17 06:59 Last Admin: 03/25/17 11:38 Dose: 0.5 mg Lactobacillus Rhamnosus (Culturelle 15b) 1 each GT DAILY [facility] Stop: 05/24/17 08:59 Last Admin: 03/25/17 09:34 Dose: 1 each Levetiracetam (Keppra) 500 mg GT BID [facility] Stop: 05/23/17 08:59 Last Admin: 03/25/17 09:35 Dose: 500 mg Levothyroxine Sodium (Synthroid) 0.088 mg GT QDAC [facility] Stop: 05/24/17 13:46 Loperamide HCl (Imodium) 2 mg GT Q6H PRN PRN Reason: Diarrhea Lorazepam (Ativan) 1 mg IV Q4H PRN; Protocol PRN Reason: Seizure Stop: 05/22/17 22:55 Magnesium Hydroxide (Milk Of Magnesia) 30 ml GT HS PRN PRN Reason: Constipation Stop: 05/22/17 22:46 Metoclopramide HCl (Reglan) 5 mg GT Q6H ALEJANDRO Stop: 05/22/17 22:59 Last Admin: 03/25/17 10:38 Dose: 5 mg Miscellaneous (Vancomycin Iv Per Pharmacy) 1 ea MC PRN ALEJANDRO Stop: 05/22/17 22:59 Miscellaneous (Probiotic Screen) 1 ea MC PRN PRN PRN Reason: PROTOCOL Stop: 05/23/17 10:29 Miscellaneous (Vte Chemical Prophylaxis Screen/ Admission) 1 ea PRN PRN PRN Reason: PROTOCOL Stop: 05/23/17 17:14 Miscellaneous (Clinical Monitoring) 1 ea MC PRN PRN PRN Reason: RENAL DOSE ZOSYN Stop: 05/24/17 10:39 Mupirocin (Bactroban Oint) 1 appl NS BID ALEJANDRO Stop: 03/30/17 09:01 Ondansetron HCl (Zofran) 4 mg IV Q4H PRN PRN Reason: Nausea / Vomiting Stop: 05/22/17 22:55 Last Admin: 03/24/17 12:52 Dose: 4 mg Pantoprazole Sodium (Protonix) 40 mg PO BID ALEJANDRO Stop: 05/23/17 08:59 Last Admin: 03/25/17 09:35 Dose: 40 mg Sodium Bicarbonate (Sodium Bicarbonate) 650 mg GT DAILY ALEJANDRO PRN Reason: Protocol Stop: 05/23/17 08:59 Last Admin: 03/25/17 09:35 Dose: 650 mg Sodium Phosphate (Fleet Enema) 135 ml RC Q48HR PRN PRN Reason: Constipation Stop: 05/22/17 22:46 Lab - Result Diagrams 03/28/17 05:51 03/29/17 07:18 Kidney fnc improving w/ hydration Most electrolytes have corrected continue to monitor electrolytes replace K continue D5W Nutritional Asmnt/Malnutr-PDOC - Dietary Evaluation Malnutrition Findings (Please click <Entered> for more info): Nutritional Asmnt/Malnutrition Start: 03/24/17 16: 51 Text: Status: Complete Freq: Document 03/24/17 16:51 LCHENG (Rec: 03/24/17 16:57 [email or web address] [id number]) Nutritional Asmnt/Malnutrition Patient General Information Nutritional Screening High Risk Consult Diagnosis sepsis, ARF Pertinent Medical Hx/Surgical Hx chronic respiratory failure, DM, chronic renal failure, CHF Subjective Information Consult received for chino < 12 and multiple wounds/ pressure ulvers. Pt seen resting in bed, on vent. TF was off at this time. Per nurse notes, pt had light yeallow vomitting today, TF hold for 4hr. Current Diet Order/ Nutrition Support Novasource Renal 40ml/hr continous Pertinent Medications vitamin C, d5-0.45ns, novolog, culturelle, synthroid, reglan , protonix, piperacillin Pertinent Labs 2/6 Cl 109, BUN 186, Cr 3.4, glucose 140, POC 180-193, a1c 4.6 Nutritional Hx/Data Height 1.75 m Height (Calculated Centimeters) 175.3 Current Weight (lbs) 77.791 kg Weight (Calculated Kilograms) 77.8 Weight (Calculated Grams) 64993.1 [place] Body Weight 160 Body Mass Index (BMI) 25.3 Weight Status Overweight GI Symptoms GI Symptoms Diarrhea Last BM no record Difficult in: None Skin Integrity/Comment: rash Estimated Nutritional Goals BEE in Kcals: Using Current wt Calories/Kcals/Kg 25-30 Kcals Calculated 6959-0190 Protein: Using Current wt Protein g/k-1.2 monitor renal labs Protein Calculated 77-92 Fluid: ml 3030-6689 Nutritional Problem 1. Problem Problem altered nutrition related lab values Etiology hx of chronic renal failure, DM Signs/Symptoms: BUN 186, Cr 3.4, glucose 140 Malnutrition Alert Protein-Calorie Malnutrition N/A Is there a minimum of two criteria No selected? Query Text:Check all the applicable criteria. A minimum of two criteria are recommended for diagnosis of either severe or non-severe malnutrition. Intervention/Recommendation Comments 1. Continue with current TF regimen. It provides 1920kcal, 87g protein, 688ml free water , meeting 100% of nutritional needs 2. Monitor TF rate, tolerance, wt weekly, skin integrity and labs 3. F/U as moderate risk in 3-5 days, 03/27-03/29 Expected Outcomes/Goals Expected Outcomes/Goals 1. Pt to meet at least 75% of nutritional needs via nutrition support with tolerance 2. Wt stability, skin to remain intact, labs to approach WNL.
== END 2017-03-29 15:00 | disposition home or self-care (01) | DRG 871 ==
LOC: ER 14:13 → ICU 21:35 → TELE 03-27 20:20
PROVIDERS: ADMIT Internal Medicine; ATTEND Internal Medicine
DX: A41.9 Sepsis, unspecified organism (principal); J96.20 Acute and chronic respiratory failure, unspecified whether with hypoxia or hypercapnia; L89.159 Pressure ulcer of sacral region, unspecified stage; I13.2 Hypertensive heart and chronic kidney disease with heart failure and with stage 5 chronic kidney disease, or end stage renal disease; J15.0 Pneumonia due to Klebsiella pneumoniae; I96 Gangrene, not elsewhere classified; N17.9 Acute kidney failure, unspecified; R53.2 Functional quadriplegia; N18.6 End stage renal disease; E11.52 Type 2 diabetes mellitus with diabetic peripheral angiopathy with gangrene; E44.1 Mild protein-calorie malnutrition; N39.0 Urinary tract infection, site not specified; Z68.1 Body mass index [BMI] 19.9 or less, adult; R65.20 Severe sepsis without septic shock; E11.22 Type 2 diabetes mellitus with diabetic chronic kidney disease; Z93.0 Tracheostomy status; E11.21 Type 2 diabetes mellitus with diabetic nephropathy; I50.9 Heart failure, unspecified; E87.5 Hyperkalemia; I25.10 Atherosclerotic heart disease of native coronary artery without angina pectoris; E78.5 Hyperlipidemia, unspecified; Z93.1 Gastrostomy status; E03.9 Hypothyroidism, unspecified; G40.909 Epilepsy, unspecified, not intractable, without status epilepticus; E78.00 Pure hypercholesterolemia, unspecified; N40.0 Benign prostatic hyperplasia without lower urinary tract symptoms; B96.5 Pseudomonas (aeruginosa) (mallei) (pseudomallei) as the cause of diseases classified elsewhere; F03.90 Unspecified dementia, unspecified severity, without behavioral disturbance, psychotic disturbance, mood disturbance, and anxiety; D63.8 Anemia in other chronic diseases classified elsewhere; E86.0 Dehydration; L89.629 Pressure ulcer of left heel, unspecified stage; I48.91 Unspecified atrial fibrillation; L89.619 Pressure ulcer of right heel, unspecified stage; B96.4 Proteus (mirabilis) (morganii) as the cause of diseases classified elsewhere; Y83.8 Other surgical procedures as the cause of abnormal reaction of the patient, or of later complication, without mention of misadventure at the time of the procedure; Y92.89 Other specified places as the place of occurrence of the external cause; Z74.01 Bed confinement status
CPT/HCPCS: 36415-UA; 36600-90; 71045-TC; 76770-TC; 80048-TC; 80053-TC; 80200-TC; 80202-TC; 81001-TC; 81015-TC; 82140-TC; 82570-TC; 82607-90; 82746-90; 82803-TC; 82948-90; 83036-90; 83605; 83735-TC; 83880-TC; 84100-TC; 84153-90; 84300-TC; 84443-TC; 84550-TC; 85025-TC; 86850-TC; 86900-TC; 86901-TC; 86922-TC; 87070; 87070-90; 87086-90; 90779; 93005; 94760; J0295; J0885; J1644; J1650; J1815; J1956; J2405; J2543; J3260; J3370; J7030; J7070; J7613; Z7610